=== PATIENT | female | born 1940 | race Caucasian/White ===

== ENCOUNTER 2020-07-17 08:25 | Outpatient (REF) | payer MEDICARE, SELFPAY ==
--- NOTE | ~2020-07-17 | XR_ITS ---
EXAMINATION: XR SHOULDER, RIGHT CLINICAL INFORMATION: Pain right shoulder. COMPARISON: None TECHNIQUE: AP external rotation, Grashey, scapular Y, and axillary views of the right shoulder. FINDINGS: There is mild hypertrophic changes at the right AC joint. No bony erosive changes. The glenohumeral joint space is maintained normal. Suspect a small loose body superior to the humeral head on the Y view. The soft tissues are normal. No visible acute fracture or dislocation seen. XR/XR shoulder RT min 2V IMPRESSION: Mild arthritic changes right AC joint. Suspect small loose body.
--- NOTE | ~2020-07-17 | US_ITS ---
EXAMINATION: US THYROID CLINICAL INFORMATION: Abnormal thyroid labs. COMPARISON: None TECHNIQUE: Linear transducer grayscale and color Doppler examination with attention to the region of the thyroid. FINDINGS: SIZE: Measurements of the thyroid lobes and nodules are given in sagittal, anteroposterior and transverse dimensions respectively. Right Thyroid Lobe: 4.4 x 1.3 x 1.5 cm, volume 4.5 mL. Parenchyma: The gland echotexture is homogeneous. Thyroid vascularity is normal. Left Thyroid Lobe: 3.6 x 1.1 x 1.1 cm, volume 2.3 mL. Parenchyma: The gland echotexture is homogeneous. Thyroid vascularity is normal. Isthmus: 0.4 cm in maximum AP dimension. Estimated total number of nodules greater than or equal to 1 cm: one. Torpedo Worker nodules are described as follows: 1. Location: Right lower pole. Size: 0.9 x 1.0 x 0.8 cm, volume 0.4 mL. Nodule characteristics: Composition: Solid (2). Echogenicity: Hyperechoic (1). Shape: Not taller than wide (0). Margins: Smooth (0). Echogenic Foci: None (0). ACR TI-RADS total points: 3 ACR TI-RADS category: 3 2. Location: Right lower pole. Size: 0.4 x 0.4 x 0.5 cm, volume 0.04 mL. Nodule characteristics: Composition: Solid (2). Echogenicity: Hyperechoic (1). Shape: Not taller than wide (0). Margins: Smooth (0). Echogenic Foci: None (0). ACR TI-RADS total points: 3 ACR TI-RADS category: 3 NODES: No lymphadenopathy is seen in the tissue surrounding the thyroid gland. US/US thyroid IMPRESSION: Two solid lesions of which only one lesions measures 1.0 cm and are not suspicious based on Ti-Rads category 3. Recommend continued follow-up ACR TI-RADS RECOMMENDATION REFERENCE: Ultrasound-guided fine-needle aspiration, followup ultrasound, no further follow up. * TR1 (0 point) and TR 2 (2 points): No FNA or follow up * TR3 (3 points): FNA if more than or equal to 2.5 cm in maximum dimension, followup ultrasound in 1, 3 and 5 years if 1.5 to 2.4 cm in maximum dimension. * TR4 (4-6 points): FNA if more than or equal to 1.5 cm in maximum dimension, followup ultrasound in 1, 2, 3 and 5 years if 1 to 1.4 cm in maximum dimension. * TR5 (more than or equal to 7 points): FNA if more than or equal to 1 cm in maximum dimension, followup ultrasound every year for 5 years if 0.5 to 0.9 cm in maximum dimension. * TR3, TR4 or TR5 nodules that are below the size threshold for follow up receive no follow up.
== END 2020-07-17 08:26 | disposition home or self-care (01) ==
LOC: HO.US 08:25
PROVIDERS: PCP Family Medicine; Visit Provider Family Medicine
DX: E07.89 Other specified disorders of thyroid (principal); R93.89 Abnormal findings on diagnostic imaging of other specified body structures
CPT/HCPCS: 73030; 76536

== ENCOUNTER 2020-07-26 08:34 | Outpatient (REF) | payer MEDICARE, SELFPAY ==
--- NOTE | ~2020-07-26 | MM_ITS ---
EXAMINATION: MM SCREENING DIGITAL BREAST TOMOSYNTHESIS, BILATERAL CLINICAL INFORMATION: Screening. Asymptomatic. The lifetime risk of breast cancer based on the Tyrer-Cuzick Model is 7.8%. COMPARISON: Mammography: April 28, 2019 and studies dating back to February 28, 2014 TECHNIQUE: Digital breast tomosynthesis is performed in both the craniocaudal and mediolateral oblique views along with computer-aided detection (CAD). Synthesized 2D images are generated from the tomosynthesis. FINDINGS: The breasts are heterogeneously dense, which may obscure small masses (ACR BI-RADS breast composition Category c). There are no significant masses, abnormal calcifications, or other abnormalities. MM/MM tomosynthesis screening BI IMPRESSION: There are no significant changes from prior study. ASSESSMENT: BI-RADS 1: Negative RECOMMENDATION: Routine annual mammography screening. This patient's information was entered into a reminder system with a target due date for their next mammogram.
== END 2020-07-26 08:35 | disposition home or self-care (01) ==
LOC: HO.MAMMO 08:34
PROVIDERS: Visit Provider Family Medicine
DX: Z12.31 Encounter for screening mammogram for malignant neoplasm of breast (principal)
CPT/HCPCS: 77063; 77067

== ENCOUNTER 2020-07-30 07:41 | Outpatient (REF) | payer MEDICARE, SELFPAY | END 2020-07-30 07:42 | disposition home or self-care (01) | LOC: HO.HOSX 07:41 | PROVIDERS: Visit Provider Orthopaedic Surgery | DX: M25.511 Pain in right shoulder (principal); I10 Essential (primary) hypertension | CPT/HCPCS: 99202 ==

== ENCOUNTER 2020-08-24 09:26 | Outpatient (REF) | payer MEDICARE, SELFPAY ==
--- NOTE | 2020-08-24 16:37 | MHC.AU.AHA ---
Adult Audiological Evaluation Date of Visit: 08/24/20 Tool Straightener Used: Bahamian- In Person Reason for Appointment: Audiological evaluation to monitor the status of Ms. Doyle's hearing loss. She has a known bilateral sensorineural hearing loss and uses hearing aids bilaterally. She feels that her hearing is gradually decreasing. She lost her hearing aids two weeks ago and an updated audiogram is needed in order to pursue new hearing aids. Previous Hearing Test Results: [facility] [place], 01/04/20- Moderately severe to severe sensorineural hearing loss, though responses were inconsistent and indicated a shift compared to previous tests. Dr. Jefferson, 03/17/19- Moderate sloping to severe sensorineural hearing loss. Medical History: Medical History: Dizziness or Unsteadiness Medical History: Has been experiencing vertigo since July 2019, believed to be BPPV. Taking Meclizine daily. Hearing Instrument History- Right Ear: Credit Correspondence Clerk: Company Cubed Model: [employer]OW [employer]0-M BTE - LOST Serial Number: [id number] Battery Size: 312 Repair Warranty: 12/08/2017 Loss and Damage Warranty: 12/08/2017 Dispensed By: [facility] Date of Fittin10/01/2015 Hearing Instrument History- Left Ear: Credit Correspondence Clerk: Adaptive Paymentsak Model: Referron V50-M BTE - LOST Serial Number: [id number] Battery Size: 312 Warranty: 12/08/2017 Loss and Damage Warranty: 12/08/2017 Dispensed By: [facility] Date of Fittin10/01/2015 Otoscopy: Right Ear: Unremarkable Left Ear: Unremarkable Tympanometry: Tympanometry performed due to: Patient reports sensation of aural fullness Right Ear: Normal Middle Ear System (Type A) Left Ear: Normal Middle Ear System (Type A) Hearing Evaluation: Transducer(s) Used: Insert Earphones, Bone Conduction Method: Conventional Audiometry Stimuli Used: Pure Tones Right Ear: Description of Hearing: Moderate sloping to severe sensorineural hearing loss from 250-8000 Hz. Left Ear: Description of Hearing: Moderate sloping to severe sensorineural hearing loss from 250-8000 Hz. Speech Recognition Threshold (SRT): Method Used: Recorded Lists Stimuli Used: Spondee Words Right Ear: 50 dBHL Left Ear: 50 dBHL Word Discrimination: Method: Recorded Lists Word Lists Used: Lista Bisil?bica (Bahamian) Right Ear: 92% at 80 dBHL Left Ear: 92% at 80 dBHL Comparison: Compared to most recent evaluation: Hearing is improved compared to test from 12/2019 and stable compared to test from 02/2019. Recommendations: Audiological re-evaluation in one year. Medical clearance from a physician is required before fitting. Hearing Aid Fitting will be scheduled when all materials arrive. Hearing aid(s) will be ordered after approval is received. Will submit a PA to patient's insurance. Diagnosis: Primary Diagnosis: H90.3 Bilateral Sensorineural Hearing Loss Services Performed: Comprehensive Audiological Evaluation (CPT 17762) Tympanometry (CPT 43676) Signature: Provider: Pia Hendricks, CCC-A
--- NOTE | 2020-08-24 16:38 | MHC.AU.HAS ---
Hearing Aid Evaluation Date of Visit: 08/24/20 [employer] Plans Intelligence Officer Used: Romanian- In Person Historical Information: Description of Hearing: Moderate sloping to severe sensorineural hearing loss bilaterally. Current personal amplification information, if applicable: Previously had Bolero V50-M BTE aids, lost two weeks ago. Summary: Patient lost her hearing aids and they are no longer under warranty. Due for updated aids in September 2020. Right now we are just shy of the 5 year musa, but will request as patient has difficulties communicating without the hearing aids. Hearing Aid Prescription: Based on the individual?s shared listening needs, communication environments, dexterity, desire for connectivity, and personal preferences, the following prescription for amplification has been made: Right ear: Hardware Trainer: [employer] Model: Audeo P70-R Battery Size: Rechargeable Color: P1- Sand beige Associate Professor Of Biblical Studies: Size 1 M Type of Dome: Power Left ear: Hardware Trainer: Phonak Model: Audeo P70-R Battery Size: Rechargeable Color: P1- Sand beige Associate Professor Of Biblical Studies: 1 M Type of Dome: Power Action Taken/Action Needed: Prior authorization to be requested. Medical Clearance to be requested from PCP/ENT. Hearing Fitting to be scheduled when materials arrive. Aids will be ordered on approval is received. Signature: Provider: Pia Hendricks, CLAUDIA-A
--- NOTE | 2020-08-24 16:40 | MHC.AU.MED ---
Medical Clearance for Hearing Instrumentation Date: 08/24/20 Patient Name: Afsaneh Doyle Date of : 1940 Referring Provider: Lubna Fong MD We have seen your patient on 08/24/20 and have determined that they are a candidate for amplification (See accompanying report). Specifically, they would benefit from: Hearing aid use in both ears There is a statute that addresses Medical Evaluation Requirements prior to fitting a patient with a hearing aid. According to [place] statute [facility] CMR:6.03(1), (a) General. Except as provided in 265 CMR 6.03(1)(b), a soda dispenser shall not sell a hearing aid unless the prospective user has presented to the soda dispenser a written statement signed by a licensed physician that states that the patient's hearing loss has been medically evaluated and the patient may be considered a candidate for a hearing aid. The medical evaluation must have taken place within the preceding six months. Please note: Due to the [place] Statute referenced above, we cannot accept a signature other than that of a licensed physician. PERSONAL BANKING ASSISTANT and PA signatures cannot be accepted. I am in agreement with the above recommendation. There is no medical contraindication for hearing instrumentation. Physician Signature Date Physician Name (Printed)
== END 2020-08-24 09:27 | disposition home or self-care (01) ==
LOC: HO.SH 09:26
PROVIDERS: Visit Provider Family Medicine
DX: Z46.1 Encounter for fitting and adjustment of hearing aid (principal); H90.3 Sensorineural hearing loss, bilateral
CPT/HCPCS: 92557; 92567; 92591

== ENCOUNTER 2020-09-13 09:27 | Outpatient (REF) | payer MEDICARE, SELFPAY | END 2020-09-13 09:28 | disposition home or self-care (01) | LOC: HO.HAP 09:27 | PROVIDERS: Visit Provider Family Medicine | DX: Z46.1 Encounter for fitting and adjustment of hearing aid (principal); H90.3 Sensorineural hearing loss, bilateral | CPT/HCPCS: V5011; V5020; V5160; V5261 ==

== ENCOUNTER 2020-10-03 09:23 | Outpatient (REF) | payer MEDICARE, SELFPAY | END 2020-10-03 09:24 | disposition home or self-care (01) | LOC: HO.HAP 09:23 | PROVIDERS: Visit Provider Family Medicine | DX: Z13.89 Encounter for screening for other disorder (principal) ==

== ENCOUNTER 2021-01-09 09:29 | Outpatient (REF) | payer MEDICARE, SELFPAY ==
[2021-01-10 09:25] LABS: Lyme Abs Screen <0.90 index
== END 2021-01-09 09:30 | disposition home or self-care (01) ==
LOC: HO.LAB 09:29
PROVIDERS: PCP Family Medicine; Visit Provider Family Medicine
DX: Z01.84 Encounter for antibody response examination (principal); R21 Rash and other nonspecific skin eruption
CPT/HCPCS: 36415; 86617; 86618

== ENCOUNTER 2021-03-11 10:01 | Inpatient (IN) | payer MEDICARE, SELFPAY ==
[2021-03-11] VITALS (8 sets, daily range): BP systolic 114–159; BP diastolic 61–97; PULSE 72–88; RESP 16–18; TEMP 36.6–37.2; O2SAT 92–100; BMI 27.7
--- NOTE | ~2021-03-11 | CT_ITS ---
EXAMINATION: CT ABDOMEN AND PELVIS WITH CONTRAST CLINICAL INFORMATION: Left lower quadrant pain, vomiting. COMPARISON: CT abdomen and pelvis with IV contrast 07/22/2012. TECHNIQUE: Multidetector volumetric images were obtained from the superior aspect of the liver through the pubic symphysis following administration 85 mL of Omnipaque 350 intravenous contrast. Sagittal and coronal reformatted images were obtained on the technologist's workstation. Oral contrast: No This CT examination was performed using dose optimization techniques as appropriate, variously including the following: *Automated exposure control *Adjustment of mA and/or kV according to patient size (this includes techniques or standardized protocols for targeted exams where dose is matched to indication/reason for exam; i.e. extremities or head) *Use of iterative reconstruction technique DLP: 567 mGy-cm FINDINGS: LUNG BASES: Mild accentuation interstitial markings. No honeycombing, airspace consolidation, or effusion. LIVER, GALLBLADDER, AND BILIARY TREE: Liver is normal in size and smooth in contour. There is tiny subcapsular cyst inferior medial right lobe adjacent to gallbladder, in retrospect similar to prior CT 2013. There is decreased hepatic parenchymal attenuation consistent with hepatic steatosis. No intrahepatic ductal dilatation. The gallbladder is unremarkable with no evidence of radiopaque gallstones, gallbladder wall thickening, or obvious pericholecystic inflammatory changes. PANCREAS: Unremarkable. SPLEEN: Unremarkable. ADRENAL GLANDS: Unremarkable. KIDNEYS AND URETERS: The kidneys are normal in size, shape, and attenuation. No hydronephrosis, hydroureter, or calculi seen. No perinephric stranding. BLADDER: Unremarkable. GASTROINTESTINAL TRACT: There is stool throughout the colon from the cecum to the mid sigmoid. There is no wall thickening or pneumatosis or free air or proximal obstruction. Scattered diverticula in the sigmoid are seen without diverticulitis. The appendix is normal. Small bowel is unremarkable. There is no ascites or fluid collection. ABDOMINAL WALL: No significant hernia is appreciated. LYMPH NODES: No lymphadenopathy. VASCULAR: Unremarkable. PELVIC VISCERA: There is a chronic cyst right adnexa of water attenuation (1 HU) measuring 3.8 x 3.4 x 3.3 cm. There is a similar sized cyst on prior CT 2013 measuring 3.6 x 3.3 x 2.7 cm. No prior characterization with ultrasound or MR. There is no pelvic ascites. OSSEOUS STRUCTURES: Unremarkable. CT/CT abdomen pelvis w con IMPRESSION: 1. Large amount of stool from cecum to mid sigmoid. No wall thickening or paracolic inflammatory changes. Normal appendix. No ascites or fluid collection. 2. Probable chronic cyst right adnexa 3.8 cm. Recommend follow-up pelvic ultrasound in 6 months.
--- NOTE | 2021-03-11 10:58 | ED.ABDPAIN ---
HPI - Abdominal Pain General Chief Complaint: Abdominal Pain Stated Complaint: abd pain Time Seen by Provider: 03/11/21 10:58 Source: patient and EMS Mode of arrival: EMS Limitations: no limitations History of Present Illness HPI narrative: 80-year-old female, no known medical history presents to the emergency department with complaints of left lower quadrant pain, and vomiting since last night. Patient states that the pain came on all of a sudden, and progressively worsened over night. She reports episodes of vomiting every 30 minutes, she states she is unable to keep down food, or water. She rates her pain a 10/10, intermittent in nature, described as stabbing pain, free of radiation. She states this started after she drank milk. She notes her bowel movements have been smaller than usual over the past three days. She denies fevers, chills, chest pain, shortness of breath, weakness, recent sick contacts, nausea, vomiting. She has had a , but no other abdominal surgeries. MD elicited complaint: abdominal pain Pertinent past history: none Onset (ago): day(s) (1) Pain Consistency: intermittent Location: LLQ Severity: severe Pain scale (0-10): 10 Quality: stabbing Radiation: none Migration to: no migration Exacerbating factors: nothing Relieving factors: nothing Associated symptoms: nausea Related Data Home Medications Medication Instructions Recorded Confirmed aspirin 81 mg tablet,delayed 1 tab PO DAILY 03/11/21 03/11/21 release carvedilol 25 mg tablet 1 tab PO BID 03/11/21 03/11/21 cetirizine 10 mg tablet 1 tab PO DAILY 03/11/21 03/11/21 cholecalciferol (vitamin D3) 50 1 tab PO DAILY 03/11/21 03/11/21 mcg (2,000 unit) tablet fluticasone propionate 50 1 spray INTRANASAL DAILY 03/11/21 03/11/21 mcg/actuation nasal spray,suspension lisinopril 5 mg tablet 1 tab PO DAILY 03/11/21 03/11/21 meclizine 12.5 mg tablet 1 tab PO DAILY 03/11/21 03/11/21 rosuvastatin 40 mg tablet (Crestor) 1 tab PO BEDTIME 03/11/21 03/11/21 sumatriptan succinate 100 mg tablet 0.25 - 0.5 tab PO DAILY PRN 03/11/21 03/11/21 Allergies Allergy/AdvReac Type Severity Reaction Status Date / Time No Known Allergies Allergy Unverified 02/02/20 17:40 [No Known Allergies*] Review of Systems Review of Systems Constitutional : No Weight loss, No Fever, No Chills, No Fatigue, No Malaise Cardiovascular : No Chest Pain, No SOB, No Dyspnea on Exertion, No Orthopnea, No Edema, No Palpitations Respiratory : No Cough, No Sputum, No Wheezing Gastrointestinal : + Nausea, + Vomiting, No Diarrhea, No Constipation, + abdominal Pain, No Hematochezia, No Melena Genitourinary : No Dysuria, No Urinary Frequency, No Hematuria, Musculoskeletal : No joint pain, No Myalgias, No Joint Swelling Skin : No Skin Lesions, No rash Neuro : No Weakness, No Numbness, No Dizziness, No Headache All other systems reviewed and are negative Physical Exam Vital Signs: Vital Signs: Last Vital Signs Temp 98 F 03/11/21 10:07 Pulse 72 03/11/21 12:57 Resp 16 03/11/21 12:57 BP 159/97 H 03/11/21 12:57 Pulse Ox 97 03/11/21 12:57 Body Mass Index 27.7 Appearance: Alert. Oriented X3. No acute distress. Eyes: Pupils equal, round and reactive to light. ENT: Pharynx normal. Neck: Normal inspection. Neck supple. CVS: Normal heart rate and rhythm. Pulses normal. Respiratory: No respiratory distress. Breath sounds normal. Abdomen: Soft and + tenderness to LLQ Skin: Skin warm and dry. Normal skin color. Normal skin turgor. Extremities: No lower extremity edema. No calf ttp Neuro: Oriented X 3. No motor deficit. No sensory deficit. Course Course Course Narrative: EKG has been reviewed, it shows an old left bundle branch block, new inverted T-waves in lateral t waves. For this reason the troponin has been added. troponin elevaated. PO aspirin ordered will discuss with Cardiology Reevaluation(s) Reevaluation #1: Spoke to Dr. Oh who recommends an echo at this time. He also states to first see results of CT scan to determine cause of abd pain, prior to starting heparin on this patient. Re-evaluated patient again, who expresses abdominal pain has improved, and she reports little to no pain at this time. Will continue to monitor. Time: 13:39 Reevaluation #2: Dr. Oh evaluated the patient at the bedside. 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 Agrees with plan to heparinize the patient. Patient will be monitored, with a possible transfer to [facility] tomorrow after abdominal pain is under control. Time: 16:41 Reevaluation #3: Patient appears anxious at this time, will be given 1 mg of Ativan IV. Contacting hospitalist for admission at this time. Time: 16:41 MDM - Abdominal Pain MDM Narrative Medical decision making narrative: 80-year-old female presents to the emergency department with complaints of left lower quadrant pain and nausea and vomiting since last night. Upon physical examination there is tenderness to palpation in the left lower quadrant, concerning for possible diverticulitis. Plan at this time is to obtain basic labs, lactate, liver, magnesium, lipase, UA, cultures, CT of the abdomen, EKG. She will be given morphine, fluids and Zofran. Lab Data Result diagrams: 03/11/21 11:42 03/11/21 11:42 Labs: Lab Results 03/11/21 03/11/21 03/11/21 Range/Units 11:42 11:42 11:42 WBC 12.8 H (4.8-10.8) X10*3/uL RBC 4.71 (4.20-5.50) X10*6/uL Hgb 15.0 (12.0-16.0) g/dl Hct 43.7 (37-47) % MCV 92.8 (80-98) fL MCH 31.8 (27.0-33.0) pg MCHC 34.3 (31.0-35.0) g/dl RDW 12.8 (11.0-16.0) % Plt Count 252 (160-400) X10*3/uL MPV 10.7 (9.4-12.3) fL Immature Gran % (Auto) 0.4 (0.0-0.4) % Neut % (Auto) 81.9 H (45-73) % Lymph % (Auto) 11.6 L (20-40) % [place] % (Auto) 5.9 (2-11) % Eos % (Auto) 0.0 (0-4) % Baso % (Auto) 0.2 (0-2) % Lymph # (Auto) 1.5 (1.2-4.9) X10*3/uL [place] # (Auto) 0.8 (0.1-1.2) X10*3/uL Eos # (Auto) 0.0 (0.0-0.4) X10*3/uL Baso # (Auto) 0.0 (0.0-0.2) X10*3/uL Abs Immat Gran (auto) 0.05 H (0.00-0.03) X10*3/uL Absolute Neuts (auto) 10.5 H (2.0-8.3) X10*3/uL Absolute Nucleated RBC 0.000 (0.0-0.012) X10*3/uL Nucleated RBC % (auto) 0.0 (0.0-0.2) /100WBC PT (9.9-13.0) SEC INR (0.9-1.1) APTT (24.1-38.0) SEC Sodium 142 (135-145) mmol/L Potassium 4.5 (3.3-5.1) mmol/L Chloride 106 (96-108) mmol/L Carbon Dioxide 27 (22-29) mmol/L Anion Gap 14 (12-20) BUN 25 H (9-16) mg/dL Creatinine 0.81 (0.5-1.4) mg/dL Estim Creat Clear Calc 46.3 Estimated GFR > 60 Random Glucose 166 H (60-115) mg/dL Lactic Acid 2.0 (0.5-2.0) mmol/L Calcium 9.5 (8.4-10.2) mg/dL Magnesium 1.9 (1.6-2.6) mg/dL Total Bilirubin 0.5 (0.0-1.0) mg/dL Direct Bilirubin 0.2 (0.0-0.5) mg/dL AST 18 (5-31) U/L ALT 20 (0-31) U/L Alkaline Phosphatase 88 (39-117) U/L Troponin I High Sens (<3.5-17.0) ng/L Total Protein 6.8 (6.5-8.0) g/dL Albumin 3.8 (3.5-5.0) g/dL Lipase 4 L (8-78) U/L Urine Color Urine Appearance Urine pH (5.0-8.0) Ur Specific [place] (1.005-1.025) Urine Protein (NEG-TRACE) MG/DL Urine Glucose (UA) (NEG) MG/DL Urine Ketones (NEG) MG/DL Urine Blood (NEG) Urine Nitrite (NEG) Ur Leukocyte Esterase (NEG) COVID-19 (ARABELLA) (Negative) COVID-19 Clin Com 03/11/21 03/11/21 03/11/21 Range/Units 11:42 13:46 13:46 WBC (4.8-10.8) X10*3/uL RBC (4.20-5.50) X10*6/uL Hgb (12.0-16.0) g/dl Hct (37-47) % MCV (80-98) fL MCH (27.0-33.0) pg MCHC (31.0-35.0) g/dl RDW (11.0-16.0) % Plt Count (160-400) X10*3/uL MPV (9.4-12.3) fL Immature Gran % (Auto) (0.0-0.4) % Neut % (Auto) (45-73) % Lymph % (Auto) (20-40) % [place] % (Auto) (2-11) % Eos % (Auto) (0-4) % Baso % (Auto) (0-2) % Lymph # (Auto) (1.2-4.9) X10*3/uL [place] # (Auto) (0.1-1.2) X10*3/uL Eos # (Auto) (0.0-0.4) X10*3/uL Baso # (Auto) (0.0-0.2) X10*3/uL Abs Immat Gran (auto) (0.00-0.03) X10*3/uL Absolute Neuts (auto) (2.0-8.3) X10*3/uL Absolute Nucleated RBC (0.0-0.012) X10*3/uL Nucleated RBC % (auto) (0.0-0.2) /100WBC PT 11.4 (9.9-13.0) SEC INR 1.0 (0.9-1.1) APTT 33.0 (24.1-38.0) SEC Sodium (135-145) mmol/L Potassium (3.3-5.1) mmol/L Chloride (96-108) mmol/L Carbon Dioxide (22-29) mmol/L Anion Gap (12-20) BUN (9-16) mg/dL Creatinine (0.5-1.4) mg/dL Estim Creat Clear Calc Estimated GFR Random Glucose (60-115) mg/dL Lactic Acid (0.5-2.0) mmol/L Calcium (8.4-10.2) mg/dL Magnesium (1.6-2.6) mg/dL Total Bilirubin (0.0-1.0) mg/dL Direct Bilirubin (0.0-0.5) mg/dL AST (5-31) U/L ALT (0-31) U/L Alkaline Phosphatase (39-117) U/L Troponin I High Sens 1341.7 H* (<3.5-17.0) ng/L Total Protein (6.5-8.0) g/dL Albumin (3.5-5.0) g/dL Lipase (8-78) U/L Urine Color Urine Appearance Urine pH (5.0-8.0) Ur Specific [place] (1.005-1.025) Urine Protein (NEG-TRACE) MG/DL Urine Glucose (UA) (NEG) MG/DL Urine Ketones (NEG) MG/DL Urine Blood (NEG) Urine Nitrite (NEG) Ur Leukocyte Esterase (NEG) COVID-19 (ARABELLA) Negative (Negative) COVID-19 Clin Com See Note 03/11/21 03/11/21 Range/Units 13:46 15:27 WBC (4.8-10.8) X10*3/uL RBC (4.20-5.50) X10*6/uL Hgb (12.0-16.0) g/dl Hct (37-47) % MCV (80-98) fL MCH (27.0-33.0) pg MCHC (31.0-35.0) g/dl RDW (11.0-16.0) % Plt Count (160-400) X10*3/uL MPV (9.4-12.3) fL Immature Gran % (Auto) (0.0-0.4) % Neut % (Auto) (45-73) % Lymph % (Auto) (20-40) % [place] % (Auto) (2-11) % Eos % (Auto) (0-4) % Baso % (Auto) (0-2) % Lymph # (Auto) (1.2-4.9) X10*3/uL [place] # (Auto) (0.1-1.2) X10*3/uL Eos # (Auto) (0.0-0.4) X10*3/uL Baso # (Auto) (0.0-0.2) X10*3/uL Abs Immat Gran (auto) (0.00-0.03) X10*3/uL Absolute Neuts (auto) (2.0-8.3) X10*3/uL Absolute Nucleated RBC (0.0-0.012) X10*3/uL Nucleated RBC % (auto) (0.0-0.2) /100WBC PT (9.9-13.0) SEC INR (0.9-1.1) APTT (24.1-38.0) SEC Sodium (135-145) mmol/L Potassium (3.3-5.1) mmol/L Chloride (96-108) mmol/L Carbon Dioxide (22-29) mmol/L Anion Gap (12-20) BUN (9-16) mg/dL Creatinine (0.5-1.4) mg/dL Estim Creat Clear Calc Estimated GFR Random Glucose (60-115) mg/dL Lactic Acid (0.5-2.0) mmol/L Calcium (8.4-10.2) mg/dL Magnesium (1.6-2.6) mg/dL Total Bilirubin (0.0-1.0) mg/dL Direct Bilirubin (0.0-0.5) mg/dL AST (5-31) U/L ALT (0-31) U/L Alkaline Phosphatase (39-117) U/L Troponin I High Sens 1399.4 H* (<3.5-17.0) ng/L Total Protein (6.5-8.0) g/dL Albumin (3.5-5.0) g/dL Lipase (8-78) U/L Urine Color YELLOW Urine Appearance HAZY Urine pH 6.0 (5.0-8.0) Ur Specific [place] >= 1.030 H (1.005-1.025) Urine Protein TRACE (NEG-TRACE) MG/DL Urine Glucose (UA) NEG (NEG) MG/DL Urine Ketones 5 (NEG) MG/DL Urine Blood NEG (NEG) Urine Nitrite NEG (NEG) Ur Leukocyte Esterase NEG (NEG) COVID-19 (ARABELLA) (Negative) COVID-19 Clin Com ECG Data Attestation: I personally reviewed and interpreted this ECG as follows: ECG interpretation date: 03/11/21 ECG interpretation time: 11:35 Prior ECG tracings: available for review Interpretation: Rate:76 Rhythm: NSR [place]: normal Normal P waves. Normal [place]. Normal QRS complex. ST T wave : No ST elevations, new T-wave inversion, and V3. No acute ischemia. qTC: Normal. prior studies: Bew left bundle-branch block, and T-wave inversions when compared to EKG from 05/10/2018. The study has been interpreted contemporaneously by me. . Critical Care Time Critical Care Time Critical Care Time: Yes Total Critical Care Time: 60 Attestation: IV morphine for pain, repeat cardiac workup, heparin gtt, medical consult, review of records I attest to this time spent taking care of the patient Discharge Plan Discharge Clinical Impression: Elevated troponin, T wave inversion in EKG, Non-ST elevation HI (NSTEMI) Abdominal pain Qualifiers: Abdominal location: left lower quadrant Qualified Code(s): R10.32 - Left lower quadrant pain Constipation Qualifiers: Constipation type: unspecified constipation type Qualified Code(s): K59.00 - Constipation, unspecified Patient Disposition: Admitted As Inpatient [facility] Past Medical History Attestation statement: The following information was validated with the patient. Source: old records reviewed and nursing notes reviewed Medical History Hypertension Social History Social History Alcohol intake: never Patient Tobacco Use Status: Never used Tobacco Use of substances other than those prescribed or required for medical reasons: No Advance Directives: No Advance Directives Information Provided: No
--- NOTE | 2021-03-11 10:59 | ECG_ITS ---
Test Reason : ABDOMINAL PAIN Blood Pressure : / mmHG Vent. Rate : 076 BPM Atrial Rate : 076 BPM P-R Int : 154 ms QRS Dur : 124 ms QT Int : 468 ms P-R-T Axes : 065 022 172 degrees QTc Int : 526 ms Normal sinus rhythm Left bundle branch block T-wave inversion in Anterolateral leads Abnormal ECG When compared with ECG of 02-SEP-2017 12:35, T-wave inversion in Anterolateral leads is new Clinical Correlation Advised Referred By: Marnie Lopez Electronically Signed By:KRISTA BAHENA MD
[2021-03-11 12:16] LABS: MANUAL DIFF FLAG NO
[2021-03-11 12:21] LABS: Basophils Percent Auto 0.2 % (0-2); Hematocrit 43.7 % (37-47); Imm Gran Abs Auto 0.05 X10*3/uL (0.00-0.03); Imm Gran Pct Auto 0.4 % (0.0-0.4); Lymphocytes Absolute Auto 1.5 X10*3/uL (1.2-4.9); Lymphocytes Percent Auto 11.6 % (20-40); Mean Corpuscular HGB Conc 34.3 g/dl (31.0-35.0); Mean Corpuscular Hemoglobin 31.8 pg (27.0-33.0); Mean Corpuscular Volume 92.8 fL (80-98); Mean Platelet Volume 10.7 fL (9.4-12.3); Monocytes Absolute Auto 0.8 X10*3/uL (0.1-1.2); Monocytes Percent Auto 5.9 % (2-11); Neutrophils Absolute Auto 10.5 X10*3/uL (2.0-8.3); Neutrophils Percent Auto 81.9 % (45-73); Platelet Count 252 X10*3/uL (160-400); Red Blood Count 4.71 X10*6/uL (4.20-5.50); Red Cell Distribution Width 12.8 % (11.0-16.0); White Blood Count 12.8 X10*3/uL (4.8-10.8)
[2021-03-11 12:41] LABS: Alanine Aminotransferase 20 U/L (0-31); Albumin Level 3.8 g/dL (3.5-5.0); Alkaline Phosphatase 88 U/L (39-117); Anion Gap 14 (12-20); Aspartate Amino Transferase 18 U/L (5-31); Bilirubin Direct 0.2 mg/dL (0.0-0.5); Bilirubin Total 0.5 mg/dL (0.0-1.0); Blood Urea Nitrogen 25 mg/dL (9-16); Calcium 9.5 mg/dL (8.4-10.2); Carbon Dioxide 27 mmol/L (22-29); Chloride 106 mmol/L (96-108); Creatinine Clr Calc Pharmacy 46.3; Estimated Glomerular Filt Rate > 60; Glucose Random 166 mg/dL (60-115); Lipase 4 U/L (8-78); Magnesium 1.9 mg/dL (1.6-2.6); Potassium 4.5 mmol/L (3.3-5.1); Sodium 142 mmol/L (135-145); Total Protein 6.8 g/dL (6.5-8.0)
[2021-03-11] MEDS: ondansetron HCL 4 MG/2 ML VIAL IVPUSH (12:56)
[2021-03-11] MEDS: Morphine Sulfate 4 MG/ML CARTRIDGE 2 MG IVPUSH (12:56)
[2021-03-11] MEDS: Aspirin 81 MG TAB.CHEW 162 MG PO (13:26)
[2021-03-11] MEDS: 0.9 % Sodium Chloride 500 ML IV (13:26)
--- NOTE | 2021-03-11 13:39 | CA_ITS ---
Transthoracic Echocardiogram Patient (Last, First, Middle): Afsaneh Doyle, Gender: Female Date of : 1940 Age: 80 Procedure Date: 03/11/2021 Procedure Type: Transthoracic Echocardiogram Location: ER Height: 152.4 cm Weight: 64.41 kg BSA: 1.61 m2 Heart Rate: bpm BP: 127 / 65 mmHg Acetone Button Paster: Referring MD: Marnie Lopez DO Symptoms: elevated troponin, EKG changes. Study Quality: Fair ECG Rhythm: Sinus Conclusions: - The left ventricular systolic function is moderately decreased. The visually estimated ejection fraction is between 30-35%. - The entire apex, the mid anterior, mid inferior, mid anterolateral, mid inferoseptal, mid anteroseptal, and mid inferolateral segments are akinetic. - RWMA with differential of multivessel disease vs Takotsubo CMP. Findings Procedure Information Contrast agent, definity, is being given per protocol without apparent complications. Left Ventricle Normal left ventricular cavity size. There is normal left ventricular wall thickness. The left ventricular systolic function is moderately decreased. The visually estimated ejection fraction is between 30-35%. There is evidence of regional wall motion abnormalities. Abnormal diastolic function is noted. Spectral Doppler is indicative of an impaired relaxation filling pattern. E/E prime ratio is between 8 and 15 consistent with indeterminate filling pressures. Wall Motion Rest Echo Findings The entire apex, the mid anterior, mid inferior, mid anterolateral, mid inferoseptal, mid anteroseptal, and mid inferolateral segments are akinetic. Right Ventricle Normal right ventricular cavity size and systolic function. Atria Both atria are normal in size. Aortic Valve There is a normal trileaflet aortic valve. There is mild calcification of the aortic valve. There is no aortic valve stenosis. There is no aortic valve regurgitation. Mitral Valve The mitral valve appears normal. There is trace mitral valve regurgitation. There is no mitral valve stenosis. Pulmonic Valve The pulmonic valve is likely normal. Tricuspid Valve Normal tricuspid valve structure. There is trace tricuspid valve regurgitation. Normal right atrial pressure. There is no evidence of pulmonary hypertension. Great Vessels All visible segments of the aorta are normal in size. The pulmonary artery was not well visualized. Venous The inferior vena cava is normal in size and collapses greater than 50% with inspiration. Pericardium/Pleural There is no evidence of pericardial effusion. Prior Study Comparison No prior study available for comparison. Measurements 2D Linear Measurements IVSd: 1.08 0.6-0.9/0.6-1.0 cm LVIDd: 4.12 3.9-5.3/4.2-5.9 cm LVIDd Index: 2.56 2.4-3.2/2.2-3.1 cm/m2 LVIDs: 3.33 2.0-3.6 cm LVPWd: 1.17 0.7-1.1 cm Ao Root: 2.30 2.1-3.5 cm LA Diam: 3.40 2.7-3.8/3.0-4.0 cm LAIDs Index: 2.11 1.5-2.3 cm/m2 LV Mass: 196.08 67-162/88-224 g LV Mass Index: 121.79 43-95/49-115 g/m2 LVOT Diam: 1.90 3.0+(-)1.3 cm 2D Systolic Function EF 4C: 34.80 >55% EF 2C: 28.90 >55% EF BiP: 34.00 >55% Mitral Valve MV Pk E: 0.51 MV PK A: 0.94 MV Decel Time: 184.00 E/A: 0.50 E'Lateral: 3.05 E'Medial: 4.03 E/E' Med: 12.70 E/E' Lat: 16.70 PHT: 54.00 MVA PHT: 4.07 Decel Nuckolls: 2.77 Aortic Valve AoV Pk Sanjay: 1.22 AoV Mn Sanjay: 0.88 AoV VTI: 0.28 AoV Pk Grad: 6.00 Aov Mn Grad: 4.00 ISAMAR Cont.VTI: 1.71 LVOT LVOT Pk Sanjay: 0.76 LVOT Mn Sanjay: 0.52 LVOT VTI: 0.17 LVOT Pk Grad: 2.00 LVOT Mn Grad: 1.00 LVOT Diam: 1.90 LVOT Area: 2.84 Diastolic Function MV Pk E: 0.51 MV Pk A: 0.94 E/A: 0.50 E'Medial: 4.03 E/E' Med: 12.70 E' Laterial: 3.05 E/E' Lat: 16.70 Tricuspid Valve TR Pk Sanjay: 2.09 TR Pk Grad: 17.00 RVSP: 22.00 Great Vessels Aorta Ao Root-2D: 2.30 2.0-3.7 cm Pulmonary Valve PV Pk Sanjay: 0.87 Peak PV Grad: 3.00 Updated in Other Vendor System with Status of Final Julio Oh MD electronically signed on 03/11/2021 5:04:39 PM with status of Final
[2021-03-11] MEDS: iohexoL 350 MG/ML 100 ML INFUS..BTL IV (13:59)
[2021-03-11 14:02] LABS: Prothrombin Time 11.4 SEC (9.9-13.0)
[2021-03-11 14:08] LABS: Appearance Urine HAZY; Color Urine YELLOW; Glucose Urine UA NEG (NEG); Leukocyte Esterase Urine NEG (NEG); Nitrite Urine NEG (NEG); Specific Gravity - Urine >= 1.030 (1.005-1.025); Urine Blood NEG (NEG); Urine Ketones 5 MG/DL (NEG); Urine Protein TRACE MG/DL (NEG-TRACE)
[2021-03-11 14:10] LABS: COVID-19 Test Negative (Negative)
--- NOTE | 2021-03-11 14:34 | PHA.MEDREC ---
Pharmacy Consult ? Medication Reconciliation Pharmacy has completed the medication reconciliation. Nely KwanD
[2021-03-11 16:03] LABS: Troponin-I High Sensitivity 1399.4 ng/L (<3.5-17.0)
[2021-03-11] MEDS: Heparin Sodium,Porcine 5,000 UNIT/ML VIAL 3900 UNIT IVPUSH (16:33)
[2021-03-11] MEDS: Heparin Sodium,Porcine/1/2NS 25,000 UNIT/250 ML IV.SOLN 7.73 UNIT IVCONT (16:36)
[2021-03-11] MEDS: LORazepam 2 MG/ML VIAL 1 MG IVPUSH (16:43)
--- NOTE | 2021-03-11 16:48 | P.CONCA_ITS ---
History of Present Illness History of Present Illness Date of Service: 03/11/21 Requesting physician: Marnie Lopez Chief complaint: abd pain, ECG changes and + troponin Narrative: 80-year-old female who has history of known coronary disease with previous coronary artery stent in 2013 was presenting for left lower quadrant abdominal pain and vomiting. She said she started having left lower quadrant abdominal pain yesterday with vomiting. She thought this was due to gallbladder inflammation. With these symptoms she came to the emergency department. She denied any chest pain or shortness of breath. She had an EKG performed which showed sinus rhythm with left bundle-branch block and anterolateral T-wave inversions. These were new compared to her previous EKG. She denied any chest pain discomfort or shortness of breath. Showed a troponin I level of 1341 and 1399. Lipase was 4. At the time of interview she was complaining of left lower abdominal pain and denied any chest discomfort or shortness of breath. PMFSH Past Medical History Medical History Hypertension Social History Social History Alcohol intake: never Patient Tobacco Use Status: Never used Tobacco Use of substances other than those prescribed or required for medical reasons: No Advance Directives: No Advance Directives Information Provided: No Meds Allergies Allergy/AdvReac Type Severity Reaction Status Date / Time No Known Allergies Allergy Unverified 02/02/20 17:40 [No Known Allergies*] Active Medications: Current Medications Heparin Sodium (Porcine) (Heparin Sodium,Porcine 5,000 Unit/Ml Vial) 2,600 unit 40 unit/kg (2600 unit) IVPUSH PROTOCOL BOLUS PRN; Protocol PRN Reason: 40 unit/kg - Heparin Protocol Heparin Sodium (Porcine) (Heparin Sodium,Porcine 5,000 Unit/Ml Vial) 5,200 unit 80 unit/kg (5200 unit) IVPUSH PROTOCOL BOLUS PRN; Protocol PRN Reason: 80 unit/kg - Heparin Protocol Heparin Sodium/Sodium Chloride () 25,000 unit in 250 mls @ 0 mls/hr IVCONT .Q0M OZIEL; Protocol Last Admin: 03/11/21 16:36 Dose: 12 units/kg/hr, 7.73 mls/hr Documented by: Pharmacy Consult (Consult Rx Perform Med Rec) 1 each MISCELLANE ONCE PRN PRN Reason: Consult order Home Medications Medication Instructions Recorded Confirmed Last Taken Type aspirin 81 mg tablet,delayed 1 tab PO DAILY 03/11/21 03/11/21 03/10/21 History release carvedilol 25 mg tablet 1 tab PO BID 03/11/21 03/11/21 03/10/21 History cetirizine 10 mg tablet 1 tab PO DAILY 03/11/21 03/11/21 03/10/21 History cholecalciferol (vitamin D3) 50 1 tab PO DAILY 03/11/21 03/11/21 03/10/21 History mcg (2,000 unit) tablet fluticasone propionate 50 1 spray INTRANASAL DAILY 03/11/21 03/11/21 03/10/21 History mcg/actuation nasal spray,suspension lisinopril 5 mg tablet 1 tab PO DAILY 03/11/21 03/11/21 03/10/21 History meclizine 12.5 mg tablet 1 tab PO DAILY 03/11/21 03/11/21 03/10/21 History rosuvastatin 40 mg tablet (Crestor) 1 tab PO BEDTIME 03/11/21 03/11/21 03/10/21 History sumatriptan succinate 100 mg tablet 0.25 - 0.5 tab PO DAILY PRN 03/11/21 03/11/21 Unknown History Physical Exam Vital Signs: Vital Signs: Last Vital Signs Temp 98 F 03/11/21 10:07 Pulse 81 03/11/21 16:40 Resp 18 03/11/21 16:40 BP 138/71 03/11/21 16:40 Pulse Ox 97 03/11/21 16:40 Body Mass Index 27.7 GENERAL APPEARANCE: Distress due to abdominal pain NECK: no carotid bruit, no jugular venous distention. SKIN: no suspicious lesions, warm and dry. HEART: no murmurs, regular rate and rhythm. LUNGS: clear to auscultation bilaterally. ABDOMEN: soft. EXTREMITIES: no edema. PERIPHERAL PULSES: equal. NEUROLOGIC: No gross deficits, AAO X 3 Results Labs and Meds Result diagrams: 03/11/21 11:42 03/11/21 11:42 Lab results: Laboratory Results - last 24 hr 03/11/21 03/11/21 03/11/21 11:42 11:42 11:42 WBC 12.8 H RBC 4.71 Hgb 15.0 Hct 43.7 MCV 92.8 MCH 31.8 MCHC 34.3 RDW 12.8 Plt Count 252 MPV 10.7 Immature Gran % (Auto) 0.4 Neut % (Auto) 81.9 H Lymph % (Auto) 11.6 L [place] % (Auto) 5.9 Eos % (Auto) 0.0 Baso % (Auto) 0.2 Lymph # (Auto) 1.5 [place] # (Auto) 0.8 Eos # (Auto) 0.0 Baso # (Auto) 0.0 Abs Immat Gran (auto) 0.05 H Absolute Neuts (auto) 10.5 H Absolute Nucleated RBC 0.000 Nucleated RBC % (auto) 0.0 PT INR APTT Sodium 142 Potassium 4.5 Chloride 106 Carbon Dioxide 27 Anion Gap 14 BUN 25 H Creatinine 0.81 Estim Creat Clear Calc 46.3 Estimated GFR > 60 Random Glucose 166 H Lactic Acid 2.0 Calcium 9.5 Magnesium 1.9 Total Bilirubin 0.5 Direct Bilirubin 0.2 AST 18 ALT 20 Alkaline Phosphatase 88 Troponin I High Sens Total Protein 6.8 Albumin 3.8 Lipase 4 L Urine Color Urine Appearance Urine pH Ur Specific [place] Urine Protein Urine Glucose (UA) Urine Ketones Urine Blood Urine Nitrite Ur Leukocyte Esterase COVID-19 (ARABELLA) COVID-[facility] Clin Com 03/11/21 03/11/21 03/11/21 11:42 13:46 13:46 WBC RBC Hgb Hct MCV MCH MCHC RDW Plt Count MPV Immature Gran % (Auto) Neut % (Auto) Lymph % (Auto) [place] % (Auto) Eos % (Auto) Baso % (Auto) Lymph # (Auto) [place] # (Auto) Eos # (Auto) Baso # (Auto) Abs Immat Gran (auto) Absolute Neuts (auto) Absolute Nucleated RBC Nucleated RBC % (auto) PT 11.4 INR 1.0 APTT 33.0 Sodium Potassium Chloride Carbon Dioxide Anion Gap BUN Creatinine Estim Creat Clear Calc Estimated GFR Random Glucose Lactic Acid Calcium Magnesium Total Bilirubin Direct Bilirubin AST ALT Alkaline Phosphatase Troponin I High Sens 1341.7 H* Total Protein Albumin Lipase Urine Color Urine Appearance Urine pH Ur Specific [place] Urine Protein Urine Glucose (UA) Urine Ketones Urine Blood Urine Nitrite Ur Leukocyte Esterase COVID-19 (ARABELLA) Negative COVID-19 Clin Com See Note 03/11/21 03/11/21 13:46 15:27 WBC RBC Hgb Hct MCV MCH MCHC RDW Plt Count MPV Immature Gran % (Auto) Neut % (Auto) Lymph % (Auto) [place] % (Auto) Eos % (Auto) Baso % (Auto) Lymph # (Auto) [place] # (Auto) Eos # (Auto) Baso # (Auto) Abs Immat Gran (auto) Absolute Neuts (auto) Absolute Nucleated RBC Nucleated RBC % (auto) PT INR APTT Sodium Potassium Chloride Carbon Dioxide Anion Gap BUN Creatinine Estim Creat Clear Calc Estimated GFR Random Glucose Lactic Acid Calcium Magnesium Total Bilirubin Direct Bilirubin AST ALT Alkaline Phosphatase Troponin I High Sens 1399.4 H* Total Protein Albumin Lipase Urine Color YELLOW Urine Appearance HAZY Urine pH 6.0 Ur Specific [place] >= 1.030 H Urine Protein TRACE Urine Glucose (UA) NEG Urine Ketones 5 Urine Blood NEG Urine Nitrite NEG Ur Leukocyte Esterase NEG COVID-19 (ARABELLA) COVID-19 Clin Com Imaging Radiologist's impression: Impressions Abdomen/Pelvis CT 03/11/21 10:59 IMPRESSION: 1. Large amount of stool from cecum to mid sigmoid. No wall thickening or paracolic inflammatory changes. Normal appendix. No ascites or fluid collection. 2. Probable chronic cyst right adnexa 3.8 cm. Recommend follow-up pelvic ultrasound in 6 months. Assessment and Plan (1) T wave inversion in EKG: Status: Acute (2) Non-ST elevation [place] (NSTEMI): Status: Acute 80-year-old female with known coronary artery disease who is presenting for abdominal pain ends anti noticed to have EKG changes and positive troponin. Her abdominal pain is not upper quadrant but role the left lower quadrant pain. CT scan as raise concern for constipation. She has a lot of abdominal pain right now. I think we need to control this better. She has abnormal EKG and echocardiogram is showing changes consistent with LAD territory wall motion abnormality with differentials of takotsubo versus true ischemia. In any case right now I think we should leave her on heparin drip. She needs her abdominal pain and constipation to improve. As she improves we will transfer to [facility] and do a diagnostic angiogram on her. 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 Reviewed her old films at [facility] which did not show any significant LAD stenosis but that was 7 years ago. Continue baby aspirin as before. I will not start Plavix right now. Thank you for allowing me to participate in the care of your patient. Please feel free to contact me if you have any questions. Procedures Date of Service Date of Service: 03/11/21
--- NOTE | 2021-03-11 17:32 | PM.IMHP ---
History of Present Illness Date of Service: 03/11/21 80-year-old female who has history of known coronary disease with previous coronary artery stent in 2014 was presenting for left lower quadrant abdominal pain and vomiting.? She said she started having left lower quadrant abdominal pain yesterday with vomiting; states she has not had a bowel movement 3 days .? With these symptoms she came to the emergency department.? She denied any chest pain or shortness of breath. She had an EKG performed which showed sinus rhythm with left bundle-branch block and anterolateral T-wave inversions.? These were new compared to her previous EKG.? She denied any chest pain discomfort or shortness of breath.? Showed a troponin I level of 1341 and 1399. Lipase was 4. ER course CT abdomen done which demonstrated diffuse constipation; EKG and troponin as above. Patient seen by Cardiology and started on heparin drip. Admit to telemetry on heparin drip; plan to transfer in a.m. to [facility] as per Cardiology. At the time of exam, she has received Ativan and morphine and is quite comfortable; albeit alert Review of Systems Review of Systems: Denies chest pain Denies shortness of breath Denies nausea vomiting diarrhea PMFSH Medical History Hypertension Pertinent family history: . Social History Alcohol intake: never Patient Tobacco Use Status: Never used Tobacco Use of substances other than those prescribed or required for medical reasons: No Advance Directives: No Advance Directives Information Provided: No Meds Allergies Allergy/AdvReac Type Severity Reaction Status Date / Time No Known Allergies Allergy Unverified 02/02/20 17:40 [No Known Allergies*] Active Medications: Current Medications Acetaminophen (Acetaminophen 325 Mg Tablet) 650 mg PO Q6H PRN PRN Reason: Pain, Mild (Pain Scale 1-3) Aspirin (Aspirin Enteric Coated 81 Mg Tablet.Dr) 81 mg PO DAILY OZIEL Carvedilol (Carvedilol 25 Mg Tablet) 25 mg PO BID OZIEL; Protocol Fluticasone Propionate (Fluticasone Propionate Nasal 16 Gm [place]) 1 spray NOSTRIL-B DAILY [facility] Heparin Sodium (Porcine) (Heparin Sodium,Porcine 5,000 Unit/Ml Vial) 2,600 unit 40 unit/kg (2600 unit) IVPUSH PROTOCOL BOLUS PRN; Protocol PRN Reason: 40 unit/kg - Heparin Protocol Heparin Sodium (Porcine) (Heparin Sodium,Porcine 5,000 Unit/Ml Vial) 5,200 unit 80 unit/kg (5200 unit) IVPUSH PROTOCOL BOLUS PRN; Protocol PRN Reason: 80 unit/kg - Heparin Protocol Heparin Sodium/Sodium Chloride () 25,000 unit in 250 mls @ 0 mls/hr IVCONT .Q0M OZIEL; Protocol Last Admin: 03/11/21 16:36 Dose: 12 units/kg/hr, 7.73 mls/hr Documented by: Heparin Sodium/Sodium Chloride () 25,000 unit in 250 mls @ 0 mls/hr IVCONT .Q0M OZIEL; Protocol Lisinopril (Lisinopril 5 Mg Tablet) 5 mg PO DAILY OZIEL; Protocol Loratadine (Loratadine 10 Mg Tablet) 10 mg PO DAILY [facility] Morphine Sulfate (Morphine Sulfate 4 Mg/Ml Cartridge) 4 mg IVPUSH Q4H PRN; Protocol PRN Reason: Pain, Severe (Pain Scale 7-10) Nitroglycerin (Nitroglycerin 0.4 Mg Tab.Subl) 0.4 mg SUBLINGUAL Q5MX3 PRN PRN Reason: Chest Pain Non-Formulary Medication (Rosuvastatin [Crestor]) 1 tab PO BEDTIME [facility] Ondansetron HCl (Ondansetron Hcl 4 Mg/2 Ml Vial) 4 mg IVPUSH Q8H PRN PRN Reason: Nausea and Vomiting Pharmacy Consult (Consult Rx Perform Med Rec) 1 each MISCELLANE ONCE PRN PRN Reason: Consult order Sodium Chloride (0.9 % Sodium Chloride Flush 3 Ml Syringe) 3 ml IVFLUSH QSHIFT [facility] Vitamin D (Cholecalciferol (Vitamin D3) 25 Mcg Tablet) 50 mcg PO DAILY [facility] Home Medications Medication Instructions Recorded Confirmed Last Taken Type aspirin 81 mg tablet,delayed 1 tab PO DAILY 03/11/21 03/11/21 03/10/21 History release carvedilol 25 mg tablet 1 tab PO BID 03/11/21 03/11/21 03/10/21 History cetirizine 10 mg tablet 1 tab PO DAILY 03/11/21 03/11/21 03/10/21 History cholecalciferol (vitamin D3) 50 1 tab PO DAILY 03/11/21 03/11/2103/10/21 History mcg (2,000 unit) tablet fluticasone propionate 50 1 spray INTRANASAL DAILY 03/11/21 03/11/21 03/10/21 History mcg/actuation nasal spray,suspension lisinopril 5 mg tablet 1 tab PO DAILY 03/11/21 03/11/21 03/10/21 History meclizine 12.5 mg tablet 1 tab PO DAILY 03/11/21 03/11/21 03/10/21 History rosuvastatin 40 mg tablet (Crestor) 1 tab PO BEDTIME 03/11/21 03/11/21 03/10/21 History sumatriptan succinate 100 mg tablet 0.25 - 0.5 tab PO DAILY PRN 03/11/21 03/11/21 Unknown History Physical Exam Vital Signs and Narrative: Vital Signs: Last Vital Signs Temp 98 F 03/11/21 10:07 Pulse 81 03/11/21 16:40 Resp 18 03/11/21 16:40 BP 138/71 03/11/21 16:40 Pulse Ox 97 03/11/21 16:40 Body Mass Index 27.7 Const: Other: Awake alert comfortable. No complaints at this time HENMT: Other: Membranes moist; oropharynx clear Resp: Other: Clear to auscultation bilaterally; no rales rhonchi wheezes Cardio: Other: No S4; positive S1-S2; no GI: Other: (After morphine) abdomen soft nontender nondistended normoactive bowel sounds. No peritoneal signs Neuro: Other: Cranial nerves 2-12 grossly intact as tested. Motor is 5/5 all extremities. Sensation intact. Cognition is appropriate Extrem: Other: No edema bilaterally Results Labs CBC and Chem 7: 03/11/21 11:42 03/11/21 11:42 Labs: Laboratory Results - last 24 hr 03/11/21 03/11/21 03/11/21 11:42 11:42 11:42 MCV 92.8 MCH 31.8 MCHC 34.3 RDW 12.8 Plt Count 252 MPV 10.7 Immature Gran % (Auto) 0.4 Neut % (Auto) 81.9 H Lymph % (Auto) 11.6 L [place] % (Auto) 5.9 Eos % (Auto) 0.0 Baso % (Auto) 0.2 Lymph # (Auto) 1.5 [place] # (Auto) 0.8 Eos # (Auto) 0.0 Baso # (Auto) 0.0 Abs Immat Gran (auto) 0.05 H Absolute Neuts (auto) 10.5 H Absolute Nucleated RBC 0.000 Nucleated RBC % (auto) 0.0 PT INR APTT Anion Gap 14 Estim Creat Clear Calc 46.3 Estimated GFR > 60 Random Glucose 166 H Lactic Acid 2.0 Calcium 9.5 Magnesium 1.9 Total Bilirubin 0.5 Direct Bilirubin 0.2 AST 18 ALT 20 Alkaline Phosphatase 88 Troponin I High Sens Total Protein 6.8 Albumin 3.8 Lipase 4 L Urine Color Urine Appearance Urine pH Ur Specific [place] Urine Protein Urine Glucose (UA) Urine Ketones Urine Blood Urine Nitrite Ur Leukocyte Esterase COVID-19 (ARABELLA) COVID-ididwork 03/11/21 03/11/21 03/11/21 11:42 13:46 13:46 MCV MCH MCHC RDW Plt Count MPV Immature Gran % (Auto) Neut % (Auto) Lymph % (Auto) [place] % (Auto) Eos % (Auto) Baso % (Auto) Lymph # (Auto) [place] # (Auto) Eos # (Auto) Baso # (Auto) Abs Immat Gran (auto) Absolute Neuts (auto) Absolute Nucleated RBC Nucleated RBC % (auto) PT 11.4 INR 1.0 APTT 33.0 Anion Gap Estim Creat Clear Calc Estimated GFR Random Glucose Lactic Acid Calcium Magnesium Total Bilirubin Direct Bilirubin AST ALT Alkaline Phosphatase Troponin I High Sens 1341.7 H* Total Protein Albumin Lipase Urine Color Urine Appearance Urine pH Ur Specific [place] Urine Protein Urine Glucose (UA) Urine Ketones Urine Blood Urine Nitrite Ur Leukocyte Esterase COVID-19 (ARABELLA) Negative [facility] Com See Note 03/11/21 03/11/21 13:46 15:27 MCV MCH MCHC RDW Plt Count MPV Immature Gran % (Auto) Neut % (Auto) Lymph % (Auto) [place] % (Auto) Eos % (Auto) Baso % (Auto) Lymph # (Auto) [place] # (Auto) Eos # (Auto) Baso # (Auto) Abs Immat Gran (auto) Absolute Neuts (auto) Absolute Nucleated RBC Nucleated RBC % (auto) PT INR APTT Anion Gap Estim Creat Clear Calc Estimated GFR Random Glucose Lactic Acid Calcium Magnesium Total Bilirubin Direct Bilirubin AST ALT Alkaline Phosphatase Troponin I High Sens 1399.4 H* Total Protein Albumin Lipase Urine Color YELLOW Urine Appearance HAZY Urine pH 6.0 Ur Specific [place] >= 1.030 H Urine Protein TRACE Urine Glucose (UA) NEG Urine Ketones 5 Urine Blood NEG Urine Nitrite NEG Ur Leukocyte Esterase NEG COVID-19 (ARABELLA) COVID-19 Clin Com Imaging Radiologist's Impressions: Impressions Abdomen/Pelvis CT 03/11/21 10:59 IMPRESSION: 1. Large amount of stool from cecum to mid sigmoid. No wall thickening or paracolic inflammatory changes. Normal appendix. No ascites or fluid collection. 2. Probable chronic cyst right adnexa 3.8 cm. Recommend follow-up pelvic ultrasound in 6 months. Assessment and Plan (1) Non-ST elevation [place] (NSTEMI): Status: Acute (2) Constipation: Qualifiers: Constipation type: unspecified constipation type Qualified Code(s): K59.00 - Constipation, unspecified Status: Acute (3) Abdominal pain: Qualifiers: Abdominal location: left lower quadrant Qualified Code(s): R10.32 - Left lower quadrant pain Status: Acute 80-year-old female with known cardiac disease presents with abdominal pain and found to have EKG changes and positive troponins. CT of abdomen demonstrates constipation; seen by Cardiology echo showing changes consistent with LAD territory wall motion abnormality differential to include takosubo versus true ischemia. She will be admitted on heparin drip for pain control with likely transfer to [facility] in a.m. for calf 1.NSTEMI Admit to telemetry; continue heparin protocol. Recheck troponin later this evening and tomorrow a.m. Will discuss in a.m. with re: time of transfer 2. Abdominal pain Likely secondary to constipation. Pain improved with morphine. Will continue same. Will avoid aggressive prokinetic such given cardiac status. This can better be addressed after cardiac issues are clarified by imaging 3. Hypertension Will continue carvedilol and lisinopril as ordered. Followed BP's and adjust as indicated 4. Hyperlipidemia Continue statin as ordered (substitution as per pharmacy) 5. Migraines (by history) Tryptans contraindicated given cardiac issues. Will treat with Tylenol and address as needed 6 DVT prophylaxis: Heparin drip Full code Quality Stroke Does the patient have a stroke diagnosis?: No VTE Prior VTE?: No VTE Risk Level:: Medical - moderate - high VTE Device Contraindication: Treatment Not Indicated VTE Drug Contraindication: N/A - Med Ordered
--- NOTE | 2021-03-11 19:52 | MHC.CM.PN ---
CM met with admitted patient with bed assignment pending with chief medical director, as pt is Green[place]ic speaking only. A&Ox3. IMM reviewed and signed 03/11/2021@[id number]. No HCP on file. HCP reviewed, completed and signed per protocol. Copies given and uploaded into [employer] and [facility]. HCP/S.O. Paul Trinidad ([phone]). Pt lives with S.O. Pt uses no DME or services. Pt has [employer] insurance. Fully vaccinated with Moderna. D/C plan Probable transfer to [facility] 03/12 for cardiac workup. Transportation provided by [facility] to [facility] if transferred. CM to follow for d/c needs.
--- NOTE | 2021-03-11 20:17 | PC.NURSE ---
Pt to floor in stable condition w/ all belongings, heparin gtt infusing, transported attached to portable monitor and accompanied by Andreas TORRES
[2021-03-11] MEDS: Morphine Sulfate 4 MG/ML CARTRIDGE IVPUSH (21:07)
[2021-03-11] MEDS: Atorvastatin Calcium 80 MG TABLET PO (21:35)
[2021-03-11] MEDS: 0.9 % Sodium Chloride Flush 3 ML SYRINGE IVFLUSH (21:35)
[2021-03-11] MEDS: carvediloL 25 MG TABLET PO (21:35)
[2021-03-11 22:41] LABS: Hematocrit 40.8 % (37-47); Hemoglobin 14.2 g/dl (12.0-16.0); Mean Corpuscular HGB Conc 34.8 g/dl (31.0-35.0); Mean Corpuscular Hemoglobin 32.3 pg (27.0-33.0); Mean Corpuscular Volume 92.9 fL (80-98); Platelet Count 213 X10*3/uL (160-400); Red Blood Count 4.39 X10*6/uL (4.20-5.50); Red Cell Distribution Width 13.1 % (11.0-16.0); White Blood Count 13.2 X10*3/uL (4.8-10.8)
[2021-03-11 23:05] LABS: PTT Heparin Drip 198.3 SEC (53-77.9)
[2021-03-12 00:35] LABS: PTT Heparin Drip 79.8 SEC (53-77.9)
[2021-03-12 04:00] VITALS: BP 110/52; PULSE 68; RESP 20; TEMP 36.5; O2SAT 97
[2021-03-12] MEDS: Acetaminophen 325 MG TABLET 650 MG PO ×2 (06:26→15:47)
[2021-03-12 07:29] LABS: MANUAL DIFF FLAG NO
[2021-03-12 07:35] LABS: Basophils Percent Auto 0.1 % (0-2); Eosinophils Absolute Auto 0.1 X10*3/uL (0.0-0.4); Eosinophils Percent Auto 0.5 % (0-4); Hemoglobin 12.9 g/dl (12.0-16.0); Imm Gran Abs Auto 0.03 X10*3/uL (0.00-0.03); Imm Gran Pct Auto 0.3 % (0.0-0.4); Lymphocytes Absolute Auto 2.2 X10*3/uL (1.2-4.9); Lymphocytes Percent Auto 22.7 % (20-40); Mean Corpuscular HGB Conc 33.1 g/dl (31.0-35.0); Mean Corpuscular Volume 93.8 fL (80-98); Mean Platelet Volume 11.1 fL (9.4-12.3); Monocytes Absolute Auto 0.8 X10*3/uL (0.1-1.2); Monocytes Percent Auto 8.1 % (2-11); Neutrophils Absolute Auto 6.6 X10*3/uL (2.0-8.3); Neutrophils Percent Auto 68.3 % (45-73); Platelet Count 205 X10*3/uL (160-400); Red Blood Count 4.16 X10*6/uL (4.20-5.50); Red Cell Distribution Width 13.2 % (11.0-16.0); White Blood Count 9.6 X10*3/uL (4.8-10.8)
[2021-03-12 07:44] LABS: Prothrombin Time 11.6 SEC (9.9-13.0)
[2021-03-12 07:47] LABS: PTT Heparin Drip 57.7 SEC (53-77.9)
[2021-03-12 07:50] VITALS: BP 104/59; PULSE 72; RESP 20; TEMP 36.5; O2SAT 96
[2021-03-12 08:02] LABS: Alanine Aminotransferase 16 U/L (0-31); Albumin Level 3.3 g/dL (3.5-5.0); Alkaline Phosphatase 74 U/L (39-117); Anion Gap 13 (12-20); Aspartate Amino Transferase 17 U/L (5-31); Bilirubin Total 0.6 mg/dL (0.0-1.0); Blood Urea Nitrogen 24 mg/dL (9-16); Calcium 8.2 mg/dL (8.4-10.2); Carbon Dioxide 22 mmol/L (22-29); Chloride 108 mmol/L (96-108); Creatinine Clr Calc Pharmacy 48.1; Estimated Glomerular Filt Rate > 60; Glucose Fasting 171 mg/dL (60-99); Potassium 4.3 mmol/L (3.3-5.1); Sodium 139 mmol/L (135-145); Total Protein 5.9 g/dL (6.5-8.0)
[2021-03-12 09:18] LABS: B Type Natriuretic Peptide 407 pg/mL (<100); Troponin-I High Sensitivity 368.3 ng/L (<3.5-17.0)
[2021-03-12 09:41] VITALS: BP 104/49; PULSE 80
[2021-03-12] MEDS: lisinopriL 5 MG TABLET PO (09:41)
[2021-03-12] MEDS: carvediloL 25 MG TABLET PO (09:41)
[2021-03-12] MEDS: Aspirin Enteric Coated 81 MG TABLET.DR PO (09:42)
[2021-03-12] MEDS: Cholecalciferol (Vitamin D3) 25 MCG TABLET 50 MCG PO (09:42)
[2021-03-12] MEDS: Loratadine 10 MG TABLET PO (09:42)
[2021-03-12] MEDS: 0.9 % Sodium Chloride Flush 3 ML SYRINGE IVFLUSH ×2 (09:43→15:48)
[2021-03-12] MEDS: Fluticasone Propionate Nasal 16 GM SPRAY 1 SPRAY NOSTRIL-B (09:45)
[2021-03-12 12:00] VITALS: BP 99/56; PULSE 66; RESP 18; TEMP 36.2; O2SAT 94
--- NOTE | 2021-03-12 12:03 | P.DS_ITS ---
DS: Providers Provider Date of Service: 03/12/21 Date of admission: 03/11/21 17:24 Primary care physician: Lubna Fong MD Consults: 03/12/21 09:13 Consult to Cardiology Routine Consulting Provider: Julio Oh Reason for consultation: NSTEMI Has provider been notified: Yes DS: Diagnosis Discharge Diagnosis (1) Non-ST elevation NH (NSTEMI): Status: Acute (2) Constipation: Status: Acute (3) Abdominal pain: Status: Acute DS: Summary Hospital Course Hospital Course: 80-year-old female who has history of known coronary disease with previous coronary artery stent in 2013 was presenting for left lower quadrant abdominal pain and vomiting.? She said she started having left lower quadrant abdominal pain yesterday with vomiting; states she has not had a bowel movement 3 days .? With these symptoms she came to the emergency department.? She denied any chest pain or shortness of breath. She had an EKG performed which showed sinus rhythm with left bundle-branch block and anterolateral T-wave inversions.? These were new compared to her previous EKG.? She denied any chest pain discomfort or shortness of breath.? Showed a troponin I level of 1341 and 1399. Lipase was 4. ER course CT abdomen done which demonstrated diffuse constipation; EKG and troponin as above.? Patient seen by Cardiology and started on heparin drip.? Admit to telemetry on heparin drip; plan to transfer in a.m. to [facility] as per Cardiology.? At the time of exam, she has received Ativan and morphine and is quite comfortable; albeit alert Hospital Course Uneventful overnight. Patient's abdominal pain subsided. Initial troponin on admission 1341.7; peak 1399.4; morning of admission 368.3. On the morning of discharge, she has remained pain free on heparin drip. She is medically acceptable for transfer to [facility] for further diagnostics as per Dr. Warner Time Spent with Patient Time attestation: Total time spent providing and/or coordinating discharge services: Discharge coordination time: Greater than 30 minutes Quality: Stroke Does the patient have a stroke diagnosis?: No Physical Exam Vital Signs: Vital Signs: Last Vital Signs Temp 97.7 F 03/12/21 07:50 Pulse 80 03/12/21 09:41 Resp 20 03/12/21 07:50 BP 104/49 L 03/12/21 09:41 Pulse Ox 96 03/12/21 07:50 Body Mass Index 27.7 Const: Other: Awake alert comfortable. No complaints at this time HENMT: Other: Membranes moist; oropharynx clear Resp: Other: Clear to auscultation bilaterally; no rales rhonchi wheezes Cardio: Other: No S4; positive S1-S2; no GI: Other: Abdomen soft nontender nondistended normoactive bowel sounds. No peritoneal signs Neuro: Other: Cranial nerves 2-12 grossly intact as tested. Motor is 5/5 all extremities. Sensation intact. Cognition is appropriate Extrem: Other: No edema bilaterally DS: Data Data Completed and Pending Labs on day of discharge: Laboratory Results - last 24 hr 03/11/21 03/11/21 03/11/21 11:42 11:42 11:42 WBC 12.8 H RBC 4.71 Hgb 15.0 Hct 43.7 MCV 92.8 MCH 31.8 MCHC 34.3 RDW 12.8 Plt Count 252 MPV 10.7 Immature Gran % (Auto) 0.4 Neut % (Auto) 81.9 H Lymph % (Auto) 11.6 L [place] % (Auto) 5.9 Eos % (Auto) 0.0 Baso % (Auto) 0.2 Lymph # (Auto) 1.5 [place] # (Auto) 0.8 Eos # (Auto) 0.0 Baso # (Auto) 0.0 Abs Immat Gran (auto) 0.05 H Absolute Neuts (auto) 10.5 H Absolute Nucleated RBC 0.000 Nucleated RBC % (auto) 0.0 PT INR APTT PTT (Heparin Protocol) Sodium 142 Potassium 4.5 Chloride 106 Carbon Dioxide 27 Anion Gap 14 BUN 25 H Creatinine 0.81 Estim Creat Clear Calc 46.3 Estimated GFR > 60 Random Glucose 166 H Fasting Glucose Lactic Acid 2.0 Calcium 9.5 Magnesium 1.9 Total Bilirubin 0.5 Direct Bilirubin 0.2 AST 18 ALT 20 Alkaline Phosphatase 88 Troponin I High Sens B-Natriuretic Peptide Total Protein 6.8 Albumin 3.8 Lipase 4 L Urine Color Urine Appearance Urine pH Ur Specific [place] Urine Protein Urine Glucose (UA) Urine Ketones Urine Blood Urine Nitrite Ur Leukocyte Esterase COVID-19 (ARABELLA) COVID-19 Clin Com 03/11/21 03/11/21 03/11/21 11:42 13:46 13:46 WBC RBC Hgb Hct MCV MCH MCHC RDW Plt Count MPV Immature Gran % (Auto) Neut % (Auto) Lymph % (Auto) [place] % (Auto) Eos % (Auto) Baso % (Auto) Lymph # (Auto) [place] # (Auto) Eos # (Auto) Baso # (Auto) Abs Immat Gran (auto) Absolute Neuts (auto) Absolute Nucleated RBC Nucleated RBC % (auto) PT 11.4 INR 1.0 APTT 33.0 PTT (Heparin Protocol) Sodium Potassium Chloride Carbon Dioxide Anion Gap BUN Creatinine Estim Creat Clear Calc Estimated GFR Random Glucose Fasting Glucose Lactic Acid Calcium Magnesium Total Bilirubin Direct Bilirubin AST ALT Alkaline Phosphatase Troponin I High Sens 1341.7 H* B-Natriuretic Peptide Total Protein Albumin Lipase Urine Color Urine Appearance Urine pH Ur Specific [place] Urine Protein Urine Glucose (UA) Urine Ketones Urine Blood Urine Nitrite Ur Leukocyte Esterase COVID-19 (ARABELLA) Negative COVID-19 [facility] See Note 03/11/21 03/11/21 03/11/21 13:46 15:27 22:31 WBC 13.2 H RBC 4.39 Hgb 14.2 Hct 40.8 MCV 92.9 MCH 32.3 MCHC 34.8 RDW 13.1 Plt Count 213 MPV 10.0 Immature Gran % (Auto) Neut % (Auto) Lymph % (Auto) [place] % (Auto) Eos % (Auto) Baso % (Auto) Lymph # (Auto) [place] # (Auto) Eos # (Auto) Baso # (Auto) Abs Immat Gran (auto) Absolute Neuts (auto) Absolute Nucleated RBC 0.000 Nucleated RBC % (auto) 0.0 PT INR APTT PTT (Heparin Protocol) Sodium Potassium Chloride Carbon Dioxide Anion Gap BUN Creatinine Estim Creat Clear Calc Estimated GFR Random Glucose Fasting Glucose Lactic Acid Calcium Magnesium Total Bilirubin Direct Bilirubin AST ALT Alkaline Phosphatase Troponin I High Sens 1399.4 H* B-Natriuretic Peptide Total Protein Albumin Lipase Urine Color YELLOW Urine Appearance HAZY Urine pH 6.0 Ur Specific [place] >= 1.030 H Urine Protein TRACE Urine Glucose (UA) NEG Urine Ketones 5 Urine Blood NEG Urine Nitrite NEG Ur Leukocyte Esterase NEG COVID-19 (ARABELLA) COVID-19 Pcsso Com 03/11/21 03/12/21 03/12/21 22:31 00:19 00:20 WBC RBC Hgb Hct MCV MCH MCHC RDW Plt Count MPV Immature Gran % (Auto) Neut % (Auto) Lymph % (Auto) [place] % (Auto) Eos % (Auto) Baso % (Auto) Lymph # (Auto) [place] # (Auto) Eos # (Auto) Baso # (Auto) Abs Immat Gran (auto) Absolute Neuts (auto) Absolute Nucleated RBC Nucleated RBC % (auto) PT INR APTT PTT (Heparin Protocol) 198.3 H* 79.8 H D Sodium Potassium Chloride Carbon Dioxide Anion Gap BUN Creatinine Estim Creat Clear Calc Estimated GFR Random Glucose Fasting Glucose Lactic Acid Calcium Magnesium Total Bilirubin Direct Bilirubin AST ALT Alkaline Phosphatase Troponin I High Sens 668.0 H* D B-Natriuretic Peptide Total Protein Albumin Lipase Urine Color Urine Appearance Urine pH Ur Specific [place] Urine Protein Urine Glucose (UA) Urine Ketones Urine Blood Urine Nitrite Ur Leukocyte Esterase COVID-19 (ARABELLA) COVIDHipster 03/12/21 03/12/21 03/12/21 07:06 07:06 07:06 WBC 9.6 RBC 4.16 L Hgb 12.9 Hct 39.0 MCV 93.8 MCH 31.0 MCHC 33.1 RDW 13.2 Plt Count 205 MPV 11.1 Immature Gran % (Auto) 0.3 Neut % (Auto) 68.3 Lymph % (Auto) 22.7 [place] % (Auto) 8.1 Eos % (Auto) 0.5 Baso % (Auto) 0.1 Lymph # (Auto) 2.2 [place] # (Auto) 0.8 Eos # (Auto) 0.1 Baso # (Auto) 0.0 Abs Immat Gran (auto) 0.03 Absolute Neuts (auto) 6.6 Absolute Nucleated RBC 0.000 Nucleated RBC % (auto) 0.0 PT 11.6 INR 1.0 APTT PTT (Heparin Protocol) Sodium Cancelled Potassium Cancelled Chloride Cancelled Carbon Dioxide Cancelled Anion Gap Cancelled BUN Cancelled Creatinine Cancelled Estim Creat Clear Calc Cancelled Estimated GFR Cancelled Random Glucose Cancelled Fasting Glucose Lactic Acid Calcium Cancelled Magnesium Total Bilirubin Direct Bilirubin AST ALT Alkaline Phosphatase Troponin I High Sens B-Natriuretic Peptide Total Protein Albumin Lipase Urine Color Urine Appearance Urine pH Ur Specific [place] Urine Protein Urine Glucose (UA) Urine Ketones Urine Blood Urine Nitrite Ur Leukocyte Esterase COVID-19 (ARABELLA) COVID-19 [facility] 03/12/21 03/12/21 03/12/21 07:06 07:06 08:23 WBC RBC Hgb Hct MCV MCH MCHC RDW Plt Count MPV Immature Gran % (Auto) Neut % (Auto) Lymph % (Auto) [place] % (Auto) Eos % (Auto) Baso % (Auto) Lymph # (Auto) [place] # (Auto) Eos # (Auto) Baso # (Auto) Abs Immat Gran (auto) Absolute Neuts (auto) Absolute Nucleated RBC Nucleated RBC % (auto) PT INR APTT PTT (Heparin Protocol) 57.7 D Sodium 139 Potassium 4.3 Chloride 108 Carbon Dioxide 22 Anion Gap 13 BUN 24 H Creatinine 0.78 Estim Creat Clear Calc 48.1 Estimated GFR > 60 Random Glucose Fasting Glucose 171 H Lactic Acid Calcium 8.2 L D Magnesium Total Bilirubin 0.6 Direct Bilirubin AST 17 ALT 16 Alkaline Phosphatase 74 Troponin I High Sens 368.3 H* B-Natriuretic Peptide 407 H Total Protein 5.9 L Albumin 3.3 L Lipase Urine Color Urine Appearance Urine pH Ur Specific [place] Urine Protein Urine Glucose (UA) Urine Ketones Urine Blood Urine Nitrite Ur Leukocyte Esterase COVID-19 (ARABELLA) COVID-19 Clin Com Discharge Plan Discharge Patient Disposition: Xfer Acute Care Hospital Discharge Diagnosis: NSTEMI Referrals: [facility] [Other] - 1 Week Lubna Fong MD [Primary Care Provider] - 1 Week Discharge Medications: New heparin(porcine) in 0.45% NaCl 25,000 unit/250 mL Parenteral Solution 25,000 unit continuous IV infusion .Q0M Qty: 250 RF: 0 heparin (porcine) 5,000 unit/mL Solution 2,600 unit IVPUSH PROTOCOL BOLUS PRN (Reason: 40 Unit/Kg - Heparin Protocol) Qty: 250 RF: 0 Continued carvedilol 25 mg tablet 1 tab PO BID RF: 0 cetirizine 10 mg tablet 1 tab PO DAILY RF: 0 sumatriptan succinate 100 mg tablet 0.25 - 0.5 tab PO DAILY PRN (Reason: migraine) RF: 0 meclizine 12.5 mg tablet 1 tab PO DAILY RF: 0 aspirin 81 mg tablet,delayed release (DR/EC) 1 tab PO DAILY RF: 0 lisinopril 5 mg tablet 1 tab PO DAILY RF: 0 fluticasone propionate 50 mcg/actuation spray,suspension 1 spray intranasal DAILY RF: 0 rosuvastatin [Crestor] 40 mg tablet 1 tab PO BEDTIME RF: 0 cholecalciferol (vitamin D3) 50 mcg (2,000 unit) tablet 1 tab PO DAILY RF: 0 Discharge Orders: Discharge Order (Routine); Ordered 03/12/21 Ordered By: Pranav Aguilar Diet: advance to usual diet Activity on Discharge: As tolerated Stand Alone Forms: Patient Portal Discharge page Care Plan Goals: Diagnostics as per Interventional Cardiology Health Concerns: Continue current care Plan of Treatment: Continue current care. Transfer [facility] for further diagnostics Assessment: Stable on transfer
--- NOTE | 2021-03-12 12:09 | MHC.CM.PN ---
pt being dcd to [facility]
[2021-03-12 13:03] LABS: PTT Heparin Drip 57.7 SEC (53-77.9)
--- NOTE | 2021-03-12 14:43 | P.PNCA_ITS ---
Subjective Subjective Date of Service: 03/12/21 Interval history: Abdominal pain is improving. Physical Exam Vital Signs: Last Vital Signs Temp 97.2 F 03/12/21 12:00 Pulse 66 03/12/21 12:00 Resp 18 03/12/21 12:00 BP 99/56 L 03/12/21 12:00 Pulse Ox 94 03/12/21 12:00 Body Mass Index 27.7 GENERAL APPEARANCE:? Distress due to abdominal pain NECK: no carotid bruit, no jugular venous distention. SKIN: no suspicious lesions, warm and dry. HEART: no murmurs, regular rate and rhythm. LUNGS: clear to auscultation bilaterally. ABDOMEN: soft. EXTREMITIES: no edema. PERIPHERAL PULSES: equal. NEUROLOGIC: No gross deficits, AAO X 3 Results Labs and Meds Result diagrams: 03/12/21 07:06 03/12/21 07:06 Lab results: Laboratory Results - last 24 hr 03/11/21 03/11/21 03/11/21 15:27 22:31 22:31 WBC 13.2 H RBC 4.39 Hgb 14.2 Hct 40.8 MCV 92.9 MCH 32.3 MCHC 34.8 RDW 13.1 Plt Count 213 MPV 10.0 Immature Gran % (Auto) Neut % (Auto) Lymph % (Auto) [place] % (Auto) Eos % (Auto) Baso % (Auto) Lymph # (Auto) [place] # (Auto) Eos # (Auto) Baso # (Auto) Abs Immat Gran (auto) Absolute Neuts (auto) Absolute Nucleated RBC 0.000 Nucleated RBC % (auto) 0.0 PT INR PTT (Heparin Protocol) 198.3 H* Sodium Potassium Chloride Carbon Dioxide Anion Gap BUN Creatinine Estim Creat Clear Calc Estimated GFR Random Glucose Fasting Glucose Calcium Total Bilirubin AST ALT Alkaline Phosphatase Troponin I High Sens 1399.4 H* B-Natriuretic Peptide Total Protein Albumin 03/12/21 03/12/21 03/12/21 00:19 00:20 07:06 WBC 9.6 RBC 4.16 L Hgb 12.9 Hct 39.0 MCV 93.8 MCH 31.0 MCHC 33.1 RDW 13.2 Plt Count 205 MPV 11.1 Immature Gran % (Auto) 0.3 Neut % (Auto) 68.3 Lymph % (Auto) 22.7 [place] % (Auto) 8.1 Eos % (Auto) 0.5 Baso % (Auto) 0.1 Lymph # (Auto) 2.2 [place] # (Auto) 0.8 Eos # (Auto) 0.1 Baso # (Auto) 0.0 Abs Immat Gran (auto) 0.03 Absolute Neuts (auto) 6.6 Absolute Nucleated RBC 0.000 Nucleated RBC % (auto) 0.0 PT INR PTT (Heparin Protocol) 79.8 H D Sodium Potassium Chloride Carbon Dioxide Anion Gap BUN Creatinine Estim Creat Clear Calc Estimated GFR Random Glucose Fasting Glucose Calcium Total Bilirubin AST ALT Alkaline Phosphatase Troponin I High Sens 668.0 H* D B-Natriuretic Peptide Total Protein Albumin 03/12/21 03/12/21 03/12/21 07:06 07:06 07:06 WBC RBC Hgb Hct MCV MCH MCHC RDW Plt Count MPV Immature Gran % (Auto) Neut % (Auto) Lymph % (Auto) [place] % (Auto) Eos % (Auto) Baso % (Auto) Lymph # (Auto) [place] # (Auto) Eos # (Auto) Baso # (Auto) Abs Immat Gran (auto) Absolute Neuts (auto) Absolute Nucleated RBC Nucleated RBC % (auto) PT 11.6 INR 1.0 PTT (Heparin Protocol) 57.7 D Sodium Cancelled Potassium Cancelled Chloride Cancelled Carbon Dioxide Cancelled Anion Gap Cancelled BUN Cancelled Creatinine Cancelled Estim Creat Clear Calc Cancelled Estimated GFR Cancelled Random Glucose Cancelled Fasting Glucose Calcium Cancelled Total Bilirubin AST ALT Alkaline Phosphatase Troponin I High Sens B-Natriuretic Peptide Total Protein Albumin 03/12/21 03/12/21 03/12/21 07:06 08:23 12:47 WBC RBC Hgb Hct MCV MCH MCHC RDW Plt Count MPV Immature Gran % (Auto) Neut % (Auto) Lymph % (Auto) [place] % (Auto) Eos % (Auto) Baso % (Auto) Lymph # (Auto) [place] # (Auto) Eos # (Auto) Baso # (Auto) Abs Immat Gran (auto) Absolute Neuts (auto) Absolute Nucleated RBC Nucleated RBC % (auto) PT INR PTT (Heparin Protocol) 57.7 Sodium 139 Potassium 4.3 Chloride 108 Carbon Dioxide 22 Anion Gap 13 BUN 24 H Creatinine 0.78 Estim Creat Clear Calc 48.1 Estimated GFR > 60 Random Glucose Fasting Glucose 171 H Calcium 8.2 L D Total Bilirubin 0.6 AST 17 ALT 16 Alkaline Phosphatase 74 Troponin I High Sens 368.3 H* B-Natriuretic Peptide 407 H Total Protein 5.9 L Albumin 3.3 L Imaging Radiologist's impression: Impressions Abdomen/Pelvis CT 03/11/21 10:59 IMPRESSION: 1. Large amount of stool from cecum to mid sigmoid. No wall thickening or paracolic inflammatory changes. Normal appendix. No ascites or fluid collection. 2. Probable chronic cyst right adnexa 3.8 cm. Recommend follow-up pelvic ultrasound in 6 months. Progress Note: A&P Assessment and plan (1) Abdominal pain: Status: Acute (2) Non-ST elevation NE (NSTEMI): Status: Acute (3) T wave inversion in EKG: Status: Acute Assessment and Plan: 80-year-old female here for abdominal pain and elevated troponin with anterolateral T-wave inversions. Echocardiography showing LAD territory wall motion abnormality. She has no hi story of right coronary artery stenting in the past. 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 I have discussed with her that she needs cardiac catheterization and I am transferred to [facility]. She is known to have been [facility] and follows with Dr. Mays. Will transfer to [facility] and [facility] regarding cardiology and she will get cardiac catheterization tomorrow. In the meantime she should continue heparin drip. Thank you for allowing me to participate in the care of your patient. Please feel free to contact me if you have any questions. Fall Risk Details Current Medications: Current Medications Acetaminophen (Acetaminophen 325 Mg Tablet) 650 mg PO Q6H PRN PRN Reason: Pain, Mild (Pain Scale 1-3) Last Admin: 03/12/21 06:26 Dose: 650 mg Documented by: Aspirin (Aspirin Enteric Coated 81 Mg Tablet.) 81 mg PO DAILY [facility] Last Admin: 03/12/21 09:42 Dose: 81 mg Documented by: Atorvastatin Calcium (Atorvastatin Calcium 80 Mg Tablet) 80 mg PO BEDTIME [facility] Last Admin: 03/11/21 21:35 Dose: 80 mg Documented by: Carvedilol (Carvedilol 25 Mg Tablet) 25 mg PO BID [facility]; Protocol Last Admin: 03/12/21 09:41 Dose: 25 mg Documented by: Fluticasone Propionate (Fluticasone Propionate Nasal 16 Gm [place]) 1 spray NO STRIL-B DAILY [facility] Last Admin: 03/12/21 09:45 Dose: 1 spray Documented by: Heparin Sodium (Porcine) (Heparin Sodium,Porcine 5,000 Unit/Ml Vial) 2,600 unit 40 unit/kg (2600 unit) IVPUSH PROTOCOL BOLUS PRN; Protocol PRN Reason: 40 unit/kg - Heparin Protocol Heparin Sodium (Porcine) (Heparin Sodium,Porcine 5,000 Unit/Ml Vial) 5,200 unit 80 unit/kg (5200 unit) IVPUSH PROTOCOL BOLUS PRN; Protocol PRN Reason: 80 unit/kg - Heparin Protocol Heparin Sodium (Porcine) (Heparin Sodium,Porcine 5,000 Unit/Ml Vial) 5,200 unit 80 unit/kg (5200 unit) IVPUSH PROTOCOL BOLUS PRN; Protocol PRN Reason: 80 unit/kg - Heparin Protocol Heparin Sodium (Porcine) (Heparin Sodium,Porcine 5,000 Unit/Ml Vial) 2,600 unit 40 unit/kg (2600 unit) IVPUSH PROTOCOL BOLUS PRN; Protocol PRN Reason: 40 unit/kg - Heparin Protocol Heparin Sodium/Sodium Chloride () 25,000 unit in 250 mls @ 0 mls/hr IVCONT .Q0M OZIEL; Protocol Last Titration: 03/12/21 13:18 Dose: 8 units/kg/hr, 5.15 mls/hr Documented by: Heparin Sodium/Sodium Chloride () 25,000 unit in 250 mls @ 0 mls/hr IVCONT .Q0M OZIEL; Protocol Lisinopril (Lisinopril 5 Mg Tablet) 5 mg PO DAILY [facility]; Protocol Last Admin: 03/12/21 09:41 Dose: 5 mg Documented by: Loratadine (Loratadine 10 Mg Tablet) 10 mg PO DAILY [facility] Last Admin: 03/12/21 09:42 Dose: 10 mg Documented by: Lorazepam (Lorazepam 2 Mg/Ml Vial) 1 mg IVPUSH Q6H PRN PRN Reason: Anxiety Morphine Sulfate (Morphine Sulfate 4 Mg/Ml Cartridge) 4 mg IVPUSH Q4H PRN; Protocol PRN Reason: Pain, Severe (Pain Scale 7-10) Last Admin: 03/11/21 21:07 Dose: 4 mg Documented by: Nitroglycerin (Nitroglycerin 0.4 Mg Tab.Subl) 0.4 mg SUBLINGUAL Q5MX3 PRN PRN Reason: Chest Pain Ondansetron HCl (Ondansetron Hcl 4 Mg/2 Ml Vial) 4 mg IVPUSH Q8H PRN PRN Reason: Nausea and Vomiting Pharmacy Consult (Consult Rx Perform Med Rec) 1 each MISCELLANE ONCE PRN PRN Reason: Consult order Sodium Chloride (0.9 % Sodium Chloride Flush 3 Ml Syringe) 3 ml IVFLUSH QSHIFT [facility] Last Admin: 03/12/21 09:43 Dose: 3 ml Documented by: Vitamin D (Cholecalciferol (Vitamin D3) 25 Mcg Tablet) 50 mcg PO DAILY [facility] Last Admin: 03/12/21 09:42 Dose: 50 mcg Documented by: Time Spent With Patient Time: Total time spent is greater than 50% in coordination of care (as doc umented) at patient's floor/unit and/or counseling patient: Time with patient: 25 - 35 minutes Progress Note: Quality Stroke Does the patient have a stroke diagnosis?: No Procedures Date of Service Date of Service: 03/12/21
[2021-03-12 15:09] VITALS: BP 109/56; PULSE 75; RESP 17; TEMP 36.8; O2SAT 98
== END 2021-03-12 17:44 | disposition short-term general hospital (02) | DRG 282 ==
LOC: HO.ED 16:49 → HO.EDOVER 17:48 → HO.IMC 19:26
PROVIDERS: Admitting Provider Hospitalist; Emergency Provider Emergency Medicine; PCP Family Medicine; Visit Provider Hospitalist
DX: I21.4 Non-ST elevation (NSTEMI) myocardial infarction (principal); K59.00 Constipation, unspecified; I25.10 Atherosclerotic heart disease of native coronary artery without angina pectoris; E78.5 Hyperlipidemia, unspecified; G43.909 Migraine, unspecified, not intractable, without status migrainosus; Z20.822 Contact with and (suspected) exposure to COVID-19; Z79.82 Long term (current) use of aspirin; Z79.51 Long term (current) use of inhaled steroids; Z79.899 Other long term (current) drug therapy
CPT/HCPCS: 36415; 74177; 80048; 80053; 80076; 81003; 83605; 83690; 83735; 83880; 84484; 85025; 85027; 85610; 85730; 87040; 87635; 93005; 93306; 99285; J2060; J2270; J2405; Q9957; Q9967

== ENCOUNTER 2021-08-14 11:10 | Emergency (ER) | payer OTHER, SELFPAY ==
[2021-08-14 11:18] VITALS: BP 138/92; BP 144/58; PULSE 68; PULSE 88; RESP 18; TEMP 36.4; O2SAT 100; BMI 29.1
--- NOTE | 2021-08-14 11:23 | ED_ITS ---
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 Last year she started with vertigo in January and now having the same issue. MD elicited complaint: dizziness and vertigo Pertinent past history: BPPV Onset (ago): hour(s) Timing: sudden onset Severity: moderate Description: sense of movement and room spinning Relieving factors: remaining still and keeping eyes closed Associated symptoms: nausea and vomiting Related Data Home Medications Medication Instructions Recorded Confirmed aspirin 81 mg tablet,delayed 1 tab PO DAILY 03/11/21 03/11/21 release carvedilol 25 mg tablet 1 tab PO BID 03/11/21 03/11/21 cetirizine 10 mg tablet 1 tab PO DAILY 03/11/21 03/11/21 cholecalciferol (vitamin D3) 50 1 tab PO DAILY 03/11/21 03/11/21 mcg (2,000 unit) tablet fluticasone propionate 50 1 spray INTRANASAL DAILY 03/11/21 03/11/21 mcg/actuation nasal spray,suspension lisinopril 5 mg tablet 1 tab PO DAILY 03/11/21 03/11/21 meclizine 12.5 mg tablet 1 tab PO DAILY 03/11/21 03/11/21 rosuvastatin 40 mg tablet (Crestor) 1 tab PO BEDTIME 03/11/21 03/11/21 sumatriptan succinate 100 mg tablet 0.25 - 0.5 tab PO DAILY PRN 03/11/21 03/11/21 Previous Rx's Medication Instructions Recorded heparin (porcine) 25,000 unit/250 25,000 unit (250 mL) CONTINUOUS IV 03/12/21 mL in 0.45 % sodium chloride IV INFUSION .Q0M #250 ml soln heparin (porcine) 5,000 unit/mL 2,600 unit (0.52 mL) IVPUSH 03/12/21 injection solution PROTOCOL BOLUS PRN #250 ml Allergies Allergy/AdvReac Type Severity Reaction Status Date / Time No Known Allergies Allergy Verified 08/14/21 11:22 [No Known Allergies*] Review of Systems Constitutional: Constitutional: Reports no additional constitutional complaints Eyes: Eyes: Reports no additional eye complaints ENT: Denies dizziness Cardiovascular: Cardiovascular: Reports no additional cardiovascular complaints Respiratory: Respiratory: Reports as per HPI Gastrointestinal: Gastrointestinal: Reports no additional gastrointestinal complaints Genitourinary: Genitourinary: Reports no additional female genitourinary complaints Musculoskeletal: Musculoskeletal: Reports no additional musculoskeletal complaints Integumentary/Breasts: Skin/Breast: Denies rash Neurologic: Reports system reviewed and no additional complaints, except as documented, Denies dizziness and Denies Sensory deficit (Neuro) Psychiatric: Psychiatric: Denies anxiety [facility] Past Medical History Medical History Hypertension Social History Social History Household Members: Spouse Housing: Apartment Do you presently have visiting nurse or other home services: No Alcohol intake: never Patient Tobacco Use Status: Never used Tobacco Advance Directives: No Advance Directives Information Provided: No Advance Directives Date on File: 03/12/21 service: No Current occupational status: retired Physical Exam Vital Signs: Vital Signs: Last Vital Signs Temp 98.1 F 08/14/21 15:52 Pulse 67 08/14/21 15:52 Resp 21 H 08/14/21 15:52 BP 165/58 H 08/14/21 15:52 Pulse Ox 100 08/14/21 15:52 BMI result Body Mass Index 29.1 Neuro: Sensory Exam: No Sensory deficit (Neuro) Course Reevaluation(s) Reevaluation #1: currently sleeping comfortably Time: 14:28 Reevaluation #2: Patient ambulated and tolerating PO will dc home Time: 16:00 MDM - Dizziness Lab Data Result diagrams: 08/14/21 11:42 08/14/21 11:42 Labs: Lab Results 08/14/21 08/14/21 Range/Units 11:42 11:42 WBC 9.5 (4.8-10.8) X10*3/uL RBC 4.83 (4.20-5.50) X10*6/uL Hgb 14.8 (12.0-16.0) g/dl Hct 44.0 (37.0-47.0) % MCV 91.1 (80.0-98.0) fL MCH 30.6 (27.0-33.0) pg MCHC 33.6 (31.0-35.0) g/dl RDW 12.5 (11.0-16.0) % Plt Count 223 (160-400) X10*3/uL MPV 10.2 (9.4-12.3) fL Immature Gran % (Auto) 0.2 (0.0-0.4) % Neut % (Auto) 72.9 (45-73) % Lymph % (Auto) 19.5 L (20-40) % [place] % (Auto) 5.7 (2-11) % Eos % (Auto) 1.4 (0-4) % Baso % (Auto) 0.3 (0-2) % Lymph # (Auto) 1.8 (1.2-4.9) X10*3/uL [place] # (Auto) 0.5 (0.1-1.2) X10*3/uL Eos # (Auto) 0.1 (0.0-0.4) X10*3/uL Baso # (Auto) 0.0 (0.0-0.2) X10*3/uL Abs Immat Gran (auto) 0.02 (0.00-0.03) X10*3/uL Absolute Neuts (auto) 6.9 (2.0-8.3) x10*3/uL Absolute Nucleated RBC 0.000 (0.0-0.012) X10*3/uL Nucleated RBC % (auto) 0.0 (0.0-0.2) /100WBC Sodium 139 (135-145) mmol/L Potassium 4.1 (3.3-5.1) mmol/L Chloride 107 (96-108) mmol/L Carbon Dioxide 22 (22-29) mmol/L Anion Gap 14 (12-20) BUN 18 H (9-16) mg/dL Creatinine 0.80 (0.5-1.4) mg/dL Estim Creat Clear Calc 48.1 Estimated GFR > 60 Random Glucose 185 H (60-115) mg/dL Calcium 9.8 D (8.4-10.2) mg/dL Discharge Plan Discharge Clinical Impression: Vertigo Patient Disposition: Home, Self-Care Instructions: Vertigo (ED) Prescriptions: No Action carvedilol 25 mg tablet 1 tab PO BID 0RF cetirizine 10 mg tablet 1 tab PO DAILY 0RF sumatriptan succinate 100 mg tablet 0.25 - 0.5 tab PO DAILY PRN (Reason: migraine) 0RF meclizine 12.5 mg tablet 1 tab PO DAILY 0RF aspirin 81 mg tablet,delayed release (DR/EC) 1 tab PO DAILY 0RF lisinopril 5 mg tablet 1 tab PO DAILY 0RF fluticasone propionate 50 mcg/actuation spray,suspension 1 spray intranasal DAILY 0RF rosuvastatin [Crestor] 40 mg tablet 1 tab PO BEDTIME 0RF cholecalciferol (vitamin D3) 50 mcg (2,000 unit) tablet 1 tab PO DAILY 0RF heparin(porcine) in 0.45% NaCl 25,000 unit/250 mL Parenteral Solution 25,000 unit continuous IV infusion .Q0M Qty: 250 0RF heparin (porcine) 5,000 unit/mL Solution 2,600 unit IVPUSH PROTOCOL BOLUS PRN (Reason: 40 Unit/Kg - Heparin Protocol) Qty: 250 0RF Referrals: Physician,Unknown J [Primary Care Provider] - 5 days
[2021-08-14 11:47] LABS: Basophils Percent Auto 0.3 % (0-2); Eosinophils Absolute Auto 0.1 X10*3/uL (0.0-0.4); Eosinophils Percent Auto 1.4 % (0-4); Hemoglobin 14.8 g/dl (12.0-16.0); Imm Gran Abs Auto 0.02 X10*3/uL (0.00-0.03); Imm Gran Pct Auto 0.2 % (0.0-0.4); Lymphocytes Absolute Auto 1.8 X10*3/uL (1.2-4.9); Lymphocytes Percent Auto 19.5 % (20-40); MANUAL DIFF FLAG NO; Mean Corpuscular HGB Conc 33.6 g/dl (31.0-35.0); Mean Corpuscular Hemoglobin 30.6 pg (27.0-33.0); Mean Corpuscular Volume 91.1 fL (80.0-98.0); Mean Platelet Volume 10.2 fL (9.4-12.3); Monocytes Absolute Auto 0.5 X10*3/uL (0.1-1.2); Monocytes Percent Auto 5.7 % (2-11); Neutrophils Absolute Auto 6.9 x10*3/uL (2.0-8.3); Neutrophils Percent Auto 72.9 % (45-73); Platelet Count 223 X10*3/uL (160-400); Red Blood Count 4.83 X10*6/uL (4.20-5.50); Red Cell Distribution Width 12.5 % (11.0-16.0); White Blood Count 9.5 X10*3/uL (4.8-10.8)
[2021-08-14] MEDS: ondansetron HCL 4 MG/2 ML VIAL IVPUSH (11:51)
[2021-08-14] MEDS: LORazepam 2 MG/ML VIAL 1 MG IVPUSH (11:51)
[2021-08-14] MEDS: 0.9 % Sodium Chloride 1,000 ML 125 ML IVCONT (11:52)
[2021-08-14 12:10] LABS: Anion Gap 14 (12-20); Blood Urea Nitrogen 18 mg/dL (9-16); Calcium 9.8 mg/dL (8.4-10.2); Carbon Dioxide 22 mmol/L (22-29); Chloride 107 mmol/L (96-108); Creatinine Clr Calc Pharmacy 48.1; Estimated Glomerular Filt Rate > 60; Glucose Random 185 mg/dL (60-115); Potassium 4.1 mmol/L (3.3-5.1); Sodium 139 mmol/L (135-145)
[2021-08-14 13:37] VITALS: BP 145/55; PULSE 70; RESP 19; O2SAT 100
[2021-08-14] MEDS: Meclizine HCl 25 MG TABLET PO (14:36)
[2021-08-14 15:52] VITALS: BP 165/58; PULSE 67; RESP 21; TEMP 36.7; O2SAT 100
[2021-08-14] MEDS: lisinopriL 10 MG TABLET PO (16:09)
[2021-08-14] MEDS: carvediloL 25 MG TABLET PO (16:09)
== END 2021-08-14 16:38 | disposition home or self-care (01) ==
PROVIDERS: Emergency Provider Emergency Medicine
DX: R42 Dizziness and giddiness (principal); I10 Essential (primary) hypertension
CPT/HCPCS: 36415; 80048; 85025; 96361; 96374; 96375; 99283; 99285; J2060; J2405

== ENCOUNTER 2021-11-22 11:47 | Emergency (ER) | payer MEDICARE, SELFPAY ==
[2021-11-22 11:54] VITALS: BP 146/61; BP 148/88; PULSE 66; PULSE 87; RESP 16; TEMP 36.6; O2SAT 97; BMI 26.4
--- NOTE | 2021-11-22 12:03 | ECG_ITS ---
Test Reason : weakness Blood Pressure : / mmHG Vent. Rate : 061 BPM Atrial Rate : 061 BPM P-R Int : 166 ms QRS Dur : 132 ms QT Int : 454 ms P-R-T Axes : 051 011 092 degrees QTc Int : 457 ms Normal sinus rhythm Left bundle branch block Abnormal ECG When compared with ECG of 11-MAR-2021 11:35, T wave inversion no longer evident in Inferior leads T wave inversion less evident in Anterolateral leads QT has shortened Referred By: Brenda Maddox Electronically Signed By:Julio Oh
--- NOTE | 2021-11-22 12:04 | ED_ITS ---
HPI - Dizziness General Chief Complaint: Dizziness Stated Complaint: dizziness Time Seen by Provider: 11/22/21 12:03 Source: patient and EMS Mode of arrival: EMS Limitations: no limitations History of Present Illness HPI Narrative: 80 yo female with history of vertigo, CAD s/p stent in 2013, NSTEMI who presents to the ER with acute onset of dizziness that started yesterday morning when she went to get up out of bed. She states it feels like the room is spinning every time she tries to stand up. It improves with rest and laying down. She took 4 doses of Meclizine 25 mg yesterday with minimal improvement. The dizziness persisted today when she stands up and changes position. She took Meclizine 50 mg this morning and called her doctor. She has an MRI on 11/26 for further evaluation of her dizziness that has been going on for months. She states her doctor told her she could get an MRI in the ER today if she came in for evaluation. MD elicited complaint: dizziness and vertigo Onset (ago): day(s) (1) Timing: awoke with symptoms and intermittent Severity: moderate Description: room spinning and difficulty walking Context: change in body position History of similar symptoms: Yes Exacerbating factors: movement/ambulation and change in body position Relieving factors: rest and lying down Associated symptoms: denies other symptoms Related Data Home Medications Medication Instructions Recorded Confirmed aspirin 81 mg tablet,delayed 1 tab PO DAILY 03/11/21 11/22/21 release carvedilol 25 mg tablet 1 tab PO BID 03/11/21 11/22/21 cetirizine 10 mg tablet 1 tab PO DAILY 03/11/21 11/22/21 cholecalciferol (vitamin D3) 50 1 tab PO DAILY 03/11/21 11/22/21 mcg (2,000 unit) tablet lisinopril 5 mg tablet 1 tab PO DAILY 03/11/21 11/22/21 rosuvastatin 40 mg tablet (Crestor) 1 tab PO BEDTIME 03/11/21 11/22/21 sumatriptan succinate 100 mg tablet 0.25 - 0.5 tab PO DAILY PRN 03/11/21 11/22/21 migraine clotrimazole-betamethasone 1 1 appl topical DAILY 11/22/21 11/22/21 %-0.05 % topical cream docusate sodium 100 mg capsule 1 cap PO BEDTIME PRN Constipation 11/22/21 0 11/22/21 hydrocortisone 2.5 % topical cream 1 appl topical BID PRN itch 11/22/21 11/22/21 ipratropium bromide 21 mcg (0.03 2 spray intranasal BID 11/22/21 11/22/21 %) nasal spray meclizine 25 mg tablet 1 tab PO DAILY PRN Dizziness 11/22/21 11/22/21 nitroglycerin 0.4 mg sublingual 1 tab sublingual Q5M PRN Chest Pain 11/22/21 11/22/21 tablet Previous Rx's Medication Instructions Recorded lorazepam 0.5 mg tablet (Ativan) 0.5 mg PO DAILY PRN vertigo #7 tabs 11/22/21 Allergies Allergy/AdvReac Type Severity Reaction Status Date / Time No Known Allergies Allergy Verified 08/14/21 11:22 [No Known Allergies*] Review of Systems Review of Systems: Constitutional: No Fever, No Chills ENT/Mouth: No sore throat, No Rhinorrhea, No Swallowing Difficulty Eyes: No Eye Pain, No Swelling, No Redness Cardiovascular: No Chest Pain, No SOB, No Orthopnea, No Edema Respiratory: No Cough, No Sputum, No Wheezing, No dyspnea Gastrointestinal: No Nausea, No Vomiting, No Diarrhea, No abdominal Pain, No Hematochezia, No Melena Genitourinary: No Dysuria, No Urinary Frequency, No Hematuria Musculoskeletal: No joint pain, No Myalgias Skin: No Skin Lesions, No rash Neuro: No Weakness, No Numbness, + Dizziness, No Headache Psych: No Anxiety/Panic, No Depression Heme/Lymph: No Bruising, No Lymphadenopathy Endocrine: No Polyuria, No Polydipsia REPLACED BY [facility] Past Medical History Medical History Hypertension Social History Social History Household Members: Spouse Housing: Apartment Do you presently have visiting nurse or other home services: No Alcohol intake: never Patient Tobacco Use Status: Never used Tobacco Use of substances other than those prescribed or required for medical reasons: No Advance Directives: Yes Advance Directives on File: Yes Advance Directives Date on File: 03/12/21 service: No Current occupational status: retired Physical Exam Vital Signs: Vital Signs: Last Vital Signs Temp 97.8 F 11/22/21 11:54 Pulse 64 11/22/21 13:05 Resp 16 11/22/21 11:54 BP 153/66 H 11/22/21 13:05 Pulse Ox 97 11/22/21 11:54 O2 Del Method 11/22/21 11:54 BMI result Body Mass Index 26.4 Appearance: Alert. Oriented X3. No acute distress. Eyes: Pupils equal, round and reactive to light. EOMI, No nystagmus ENT: Pharynx normal. Normal TMs bilaterally. [place], hearing aids in place Neck: Normal inspection. Neck supple. CVS: Normal heart rate and rhythm. Pulses normal. Respiratory: No respiratory distress. Breath sounds normal. Abdomen: Soft and nontender. +BS x4 Skin: Skin warm and dry. Normal skin color. Normal skin turgor. No rashes. Extremities: No lower extremity edema. Neuro: Oriented X 3. No motor deficit. No sensory deficit. Normal [id number] and [id number] bilaterally. Cranial nerves 2-12 intact. Steady gait Course Course Course Narrative: 80-year-old female with a history of vertigo presents to the ER with dizziness that started yesterday. She has no other neurologic symptoms. This feels similar prior vertigo. She takes meclizine minimal relief. She has an MRI planned on Thursday for further evaluation of her dizziness. She has no vomiting. No nystagmus. No focal deficits on examination. Her dizziness is positional only and improved with rest. Doubt posterior stroke. Will get lab workup and orthostatic vital signs for further evaluation. Given she just took meclizine this morning will give her a very small dose of Ativan to see if this helps improve her dizziness. Reevaluation(s) Reevaluation #1: Labs unremarkable. Orthostatics were negative. Patient reports extreme improvement with Ativan and would like a prescription to go home with. We discussed that this is a controlled substance and will need to be continued by her provider. Will give a short course of Ativan for recurrent dizziness at home but she will follow-up with her doctor for further management. Stable for discharge home with plan to get her MRI on Thursday. MDM - Dizziness Lab Data Result diagrams: 11/22/21 12:58 11/22/21 12:58 Labs: Lab Results 11/22/21 11/22/21 11/22/21 Range/Units 12:58 12:58 12:58 WBC 6.9 (4.8-10.8) X10*3/uL RBC 4.58 (4.20-5.50) X10*6/uL Hgb 14.3 (12.0-16.0) g/dl Hct 42.3 (37.0-47.0) % MCV 92.4 (80.0-98.0) fL MCH 31.2 (27.0-33.0) pg MCHC 33.8 (31.0-35.0) g/dl RDW 12.6 (11.0-16.0) % Plt Count 245 (160-400) X10*3/uL MPV 9.7 (9.4-12.3) fL Immature Gran % (Auto) 0.4 (0.0-0.4) % Neut % (Auto) 60.9 (45-73) % Lymph % (Auto) 29.8 (20-40) % [place] % (Auto) 7.2 (2-11) % Eos % (Auto) 1.4 (0-4) % Baso % (Auto) 0.3 (0-2) % Lymph # (Auto) 2.1 (1.2-4.9) X10*3/uL [place] # (Auto) 0.5 (0.1-1.2) X10*3/uL Eos # (Auto) 0.1 (0.0-0.4) X10*3/uL Baso # (Auto) 0.0 (0.0-0.2) X10*3/uL Abs Immat Gran (auto) 0.03 (0.00-0.03) X10*3/uL Absolute Neuts (auto) 4.2 (2.0-8.3) x10*3/uL Absolute Nucleated RBC 0.000 (0.0-0.012) X10*3/uL Nucleated RBC % (auto) 0.0 (0.0-0.2) /100WBC PT 11.7 (10.0-13.1) SEC INR 1.0 (0.9-1.1) APTT 45.4 H (24.1-38.0) SEC Sodium 139 (135-145) mmol/L Potassium 4.3 (3.3-5.1) mmol/L Chloride 107 (96-108) mmol/L Carbon Dioxide 26 (22-29) mmol/L Anion Gap 10 L (12-20) BUN 14 (9-16) mg/dL Creatinine 0.71 (0.5-1.4) mg/dL Estim Creat Clear Calc 51.6 Estimated GFR > 60 Random Glucose 128 H (60-115) mg/dL Calcium 9.3 (8.4-10.2) mg/dL Magnesium 1.9 (1.6-2.6) mg/dL Total Bilirubin 0.5 (0.0-1.0) mg/dL Direct Bilirubin 0.2 (0.0-0.5) mg/dL AST 17 (5-31) U/L ALT 26 (0-31) U/L Alkaline Phosphatase 84 (39-117) U/L Troponin I High Sens (<3.5-17.0) ng/L Total Protein 7.2 D (6.5-8.0) g/dL Albumin 3.9 (3.5-5.0) g/dL 11/22/21 Range/Units 12:58 WBC (4.8-10.8) X10*3/uL RBC (4.20-5.50) X10*6/uL Hgb (12.0-16.0) g/dl Hct (37.0-47.0) % MCV (80.0-98.0) fL MCH (27.0-33.0) pg MCHC (31.0-35.0) g/dl RDW (11.0-16.0) % Plt Count (160-400) X10*3/uL MPV (9.4-12.3) fL Immature Gran % (Auto) (0.0-0.4) % Neut % (Auto) (45-73) % Lymph % (Auto) (20-40) % [place] % (Auto) (2-11) % Eos % (Auto) (0-4) % Baso % (Auto) (0-2) % Lymph # (Auto) (1.2-4.9) X10*3/uL [place] # (Auto) (0.1-1.2) X10*3/uL Eos # (Auto) (0.0-0.4) X10*3/uL Baso # (Auto) (0.0-0.2) X10*3/uL Abs Immat Gran (auto) (0.00-0.03) X10*3/uL Absolute Neuts (auto) (2.0-8.3) x10*3/uL Absolute Nucleated RBC (0.0-0.012) X10*3/uL Nucleated RBC % (auto) (0.0-0.2) /100WBC PT (10.0-13.1) SEC INR (0.9-1.1) APTT (24.1-38.0) SEC Sodium (135-145) mmol/L Potassium (3.3-5.1) mmol/L Chloride (96-108) mmol/L Carbon Dioxide (22-29) mmol/L Anion Gap (12-20) BUN (9-16) mg/dL Creatinine (0.5-1.4) mg/dL Estim Creat Clear Calc Estimated GFR Random Glucose (60-115) mg/dL Calcium (8.4-10.2) mg/dL Magnesium (1.6-2.6) mg/dL Total Bilirubin (0.0-1.0) mg/dL Direct Bilirubin (0.0-0.5) mg/dL AST (5-31) U/L ALT (0-31) U/L Alkaline Phosphatase (39-117) U/L Troponin I High Sens 4.5 (<3.5-17.0) ng/L Total Protein (6.5-8.0) g/dL Albumin (3.5-5.0) g/dL Discharge Plan Discharge Clinical Impression: Vertigo Patient Disposition: Home, Self-Care Instructions: Vertigo (ED) Additional Instructions: Take the prescribe medication as needed for vertigo. Follow up with your planned MRI next week and your PCP. If you develop new or worsening symptoms call 911 or come back to the ER for further evaluation. Prescriptions: New lorazepam [Ativan] 0.5 mg tablet 0.5 mg PO DAILY PRN (Reason: vertigo) Qty: 7 0RF No Action carvedilol 25 mg tablet 1 tab PO BID cetirizine 10 mg tablet 1 tab PO DAILY sumatriptan succinate 100 mg tablet 0.25 - 0.5 tab PO DAILY PRN (Reason: migraine) aspirin 81 mg tablet,delayed release (DR/EC) 1 tab PO DAILY lisinopril 5 mg tablet 1 tab PO DAILY rosuvastatin [Crestor] 40 mg tablet 1 tab PO BEDTIME cholecalciferol (vitamin D3) 50 mcg (2,000 unit) tablet 1 tab PO DAILY meclizine 25 mg tablet 1 tab PO DAILY PRN (Reason: Dizziness) clotrimazole-betamethasone 1-0.05 % cream 1 appl topical DAILY nitroglycerin 0.4 mg tablet, sublingual 1 tab sublingual Q5M PRN (Reason: Chest Pain) docusate sodium 100 mg capsule 1 cap PO BEDTIME PRN (Reason: Constipation) hydrocortisone 2.5 % cream 1 appl topical BID PRN (Reason: itch) ipratropium bromide 21 mcg (0.03 %) spray,non-aerosol 2 spray intranasal BID Interventions: ED Discharge Assessment Last Done: 11/22/21 15:28 Discharge Date/Time: 11/22/21 15:32 Print Language: Hebrew
[2021-11-22] MEDS: LORazepam 0.5 MG TABLET PO (12:51)
[2021-11-22 13:01] VITALS: BP 140/63; PULSE 59
[2021-11-22 13:02] VITALS: BP 144/65; PULSE 59
[2021-11-22 13:05] VITALS: BP 153/66; PULSE 64
[2021-11-22 13:05] LABS: MANUAL DIFF FLAG NO
[2021-11-22 13:07] LABS: Basophils Percent Auto 0.3 % (0-2); Eosinophils Absolute Auto 0.1 X10*3/uL (0.0-0.4); Eosinophils Percent Auto 1.4 % (0-4); Hematocrit 42.3 % (37.0-47.0); Hemoglobin 14.3 g/dl (12.0-16.0); Imm Gran Abs Auto 0.03 X10*3/uL (0.00-0.03); Imm Gran Pct Auto 0.4 % (0.0-0.4); Lymphocytes Absolute Auto 2.1 X10*3/uL (1.2-4.9); Lymphocytes Percent Auto 29.8 % (20-40); Mean Corpuscular HGB Conc 33.8 g/dl (31.0-35.0); Mean Corpuscular Hemoglobin 31.2 pg (27.0-33.0); Mean Corpuscular Volume 92.4 fL (80.0-98.0); Mean Platelet Volume 9.7 fL (9.4-12.3); Monocytes Absolute Auto 0.5 X10*3/uL (0.1-1.2); Monocytes Percent Auto 7.2 % (2-11); Neutrophils Absolute Auto 4.2 x10*3/uL (2.0-8.3); Neutrophils Percent Auto 60.9 % (45-73); Platelet Count 245 X10*3/uL (160-400); Red Blood Count 4.58 X10*6/uL (4.20-5.50); Red Cell Distribution Width 12.6 % (11.0-16.0); White Blood Count 6.9 X10*3/uL (4.8-10.8)
[2021-11-22 13:12] LABS: Prothrombin Time 11.7 SEC (10.0-13.1)
[2021-11-22 13:15] LABS: Partial Thromboplastin Time 45.4 SEC (24.1-38.0)
[2021-11-22 13:31] LABS: Troponin-I High Sensitivity 4.5 ng/L (<3.5-17.0)
[2021-11-22 13:54] LABS: Alanine Aminotransferase 26 U/L (0-31); Albumin Level 3.9 g/dL (3.5-5.0); Alkaline Phosphatase 84 U/L (39-117); Anion Gap 10 (12-20); Aspartate Amino Transferase 17 U/L (5-31); Bilirubin Direct 0.2 mg/dL (0.0-0.5); Bilirubin Total 0.5 mg/dL (0.0-1.0); Blood Urea Nitrogen 14 mg/dL (9-16); Calcium 9.3 mg/dL (8.4-10.2); Carbon Dioxide 26 mmol/L (22-29); Chloride 107 mmol/L (96-108); Creatinine Clr Calc Pharmacy 51.6; Estimated Glomerular Filt Rate > 60; Glucose Random 128 mg/dL (60-115); Magnesium 1.9 mg/dL (1.6-2.6); Potassium 4.3 mmol/L (3.3-5.1); Sodium 139 mmol/L (135-145); Total Protein 7.2 g/dL (6.5-8.0)
--- NOTE | 2021-11-22 14:53 | PHA.MEDREC ---
Pharmacy Consult ? Medication Reconciliation Pharmacy has completed the medication reconciliation. [employer] used, pt admittedly very non-adherent. Unsure of which medications she takes at home exactly except for meclizine and her nasal spray. Agreable to most things listed. Used recent claim history.
== END 2021-11-22 15:32 | disposition home or self-care (01) ==
PROVIDERS: Physician Assistant; Emergency Provider Emergency Medicine; PCP Family Medicine
DX: R42 Dizziness and giddiness (principal); I10 Essential (primary) hypertension; Z79.82 Long term (current) use of aspirin; Z79.899 Other long term (current) drug therapy
CPT/HCPCS: 36415; 80048; 80076; 83735; 84484; 85025; 85610; 85730; 93005; 99284

== ENCOUNTER 2021-12-21 09:32 | Emergency (ER) | payer MEDICARE, SELFPAY ==
--- NOTE | ~2021-12-21 | CT_ITS ---
EXAM: Noncontrast CT scan of the head and cervical spine. INDICATION: Fall COMPARISON: Head CT August 05, [address] cervical spine February 03, 2014 TECHNIQUE: Axial slices were obtained from skull base to vertex and displayed. This was followed by helical, multislice, multidetector axial images from the occiput to the upper thorax. Coronal and sagittal reformats of the cervical spine in addition to coronal reformats of the head were obtained at the technologist workstation. DLP: 927 mGy-cm FINDINGS: HEAD: There is no evidence of acute intracranial hemorrhage or territorial infarction. No abnormal mass effect or midline shift is appreciated. Shah-white differentiation is well preserved. No extra-axial fluid collections. The ventricular system and cortical sulci are prominent, consistent with age-appropriate volume loss. Mild cerebellar volume loss is also appreciated. There are areas of low density in the periventricular and subcortical white matter, most consistent with sequelae of microvascular ischemic change. Hyperostosis frontalis. No acute osseous fracture. There is mild to moderate calcifications of the cavernous internal carotid arteries. The visualized paranasal sinuses and mastoid air cells are well aerated. SPINE: The cervical spine is visualized in its entirety. There is straightening of the normal cervical lordosis. Alignment is otherwise unremarkable. Normal C1/2 articulation. Cervical vertebral body heights are maintained. There is mild narrowing of the C4/5 and C6/7 disc space heights with moderate narrowing of the C5/6 disc space height. Small to moderate-sized osteophytes are present throughout the mid and lower cervical spine. Mild to moderate bilateral facet hypertrophy diffusely. Visualized lung apices are adequately aerated. CT/CT cervical spine wo con IMPRESSION: 1. No acute intracranial pathology. 2. No fractures or dislocations of the cervical spine. This CT examination was performed using dose optimization techniques as appropriate, variously including the following: *Automated exposure control *Adjustment of mA and/or kV according to patient size (this includes techniques or standardized protocols for targeted exams where dose is matched to indication/reason for exam; i.e. extremities or head) *Use of iterative reconstruction technique
--- NOTE | ~2021-12-21 | XR_ITS ---
EXAMINATION: XR SHOULDER, LEFT CLINICAL INFORMATION: Fall with injury COMPARISON: None TECHNIQUE: AP external rotation, Grashey, scapular Y, and axillary views of the left shoulder. FINDINGS: The bones and soft tissues are normal. No fracture. Glenohumeral and acromioclavicular alignment is anatomic with normal joint space. No abnormal soft tissue calcifications. XR/XR shoulder LT min 2V IMPRESSION: Normal left shoulder.
[2021-12-21 09:46] VITALS: BP 120/78; BP 162/83; PULSE 73; RESP 12; TEMP 36.1; O2SAT 98; O2SAT 99; BMI 22.7
[2021-12-21 09:59] VITALS: BP 162/83; PULSE 67; RESP 12; TEMP 36.1; O2SAT 97
[2021-12-21 09:59] LABS: Glucose, Whole Blood 140 mg/dL (60-115)
--- NOTE | 2021-12-21 10:05 | ECG_ITS ---
Test Reason : dizziness Blood Pressure : / mmHG Vent. Rate : 072 BPM Atrial Rate : 072 BPM P-R Int : 172 ms QRS Dur : 130 ms QT Int : 436 ms P-R-T Axes : 065 013 091 degrees QTc Int : 477 ms Normal sinus rhythm Left bundle branch block Abnormal ECG When compared with ECG of 22-NOV-2021 12:01, No significant change was found Referred By: Mario Bourgeois Electronically Signed By:MARK JUAREZ MD
--- NOTE | 2021-12-21 11:05 | ED.EXTPRO ---
HPI - Extremity Problem General Chief complaint: Extremity Injury, Upper Stated complaint: Fall Time Seen by Provider: 12/21/21 09:54 History of Present Illness HPI Narrative: Patient with history of vertigo was watching TV and stood up to walk to her bed and felt typical vertigo symptoms of room spinning as she has felt before, she fell forward with the dizziness and hit her left shoulder straining it against the couch, she did not hit her head, she did not lose consciousness she remembers everything, she does complain of some left-sided neck and trapezius pain as well as left shoulder pain No other complaints There was no chest pain no headache no shortness of breath no fainting or feeling faint Related Data Home Medications Medication Instructions Recorded Confirmed aspirin 81 mg tablet,delayed 1 tab PO DAILY 03/11/21 11/22/21 release carvedilol 25 mg tablet 1 tab PO BID 03/11/21 11/22/21 cetirizine 10 mg tablet 1 tab PO DAILY 03/11/21 11/22/21 cholecalciferol (vitamin D3) 50 1 tab PO DAILY 03/11/21 11/22/21 mcg (2,000 unit) tablet lisinopril 5 mg tablet 1 tab PO DAILY 03/11/21 11/22/21 rosuvastatin 40 mg tablet (Crestor) 1 tab PO BEDTIME 03/11/21 11/22/21 sumatriptan succinate 100 mg tablet 0.25 - 0.5 tab PO DAILY PRN 03/11/21 11/22/21 migraine clotrimazole-betamethasone 1 1 appl topical DAILY 11/22/21 11/22/21 %-0.05 % topical cream docusate sodium 100 mg capsule 1 cap PO BEDTIME PRN Constipation 11/22/21 11/22/21 hydrocortisone 2.5 % topical cream 1 appl topical BID PRN itch 11/22/21 11/22/21 ipratropium bromide 21 mcg (0.03 2 spray intranasal BID 11/22/21 11/22/21 %) nasal spray meclizine 25 mg tablet 1 tab PO DAILY PRN Dizziness 11/22/21 11/22/21 nitroglycerin 0.4 mg sublingual 1 tab sublingual Q5M PRN Chest Pain 11/22/21 11/22/21 tablet Previous Rx's Medication Instructions Recorded lorazepam 0.5 mg tablet (Ativan) 0.5 mg PO DAILY PRN vertigo #7 tabs 11/22/21 Allergies Allergy/AdvReac Type Severity Reaction Status Date / Time No Known Allergies Allergy Verified 08/14/21 11:22 [No Known Allergies*] Review of Systems Review of Systems: Positive for left shoulder and left-sided neck pain after a fall caused by vertigo room spinning dizziness Negatives are no fever no chills no headache no loss of consciousness no confusion no numbness no weakness no tingling no chest pain no shortness of breath no palpitations no abdominal pain no nausea or vomiting no muscle weakness no loss of sensation no difficulty forming words Yes all other systems are reviewed and are negative PMFSH Past Medical History Source: nursing notes reviewed Medical History Hypertension Social History Social History Household Members: Spouse Housing: Apartment Do you presently have visiting nurse or other home services: No Alcohol intake: never Patient Tobacco Use Status: Never used Tobacco Smoked in Last 30 Days: No Use of substances other than those prescribed or required for medical reasons: No Advance Directives: Yes Advance Directives on File: Yes Advance Directives Date on File: 03/12/21 service: No Current occupational status: retired Physical Exam Vital Signs: Vital Signs: Last Vital Signs Temp 97 F 12/21/21 09:59 Pulse 76 12/21/21 12:13 Resp 12 12/21/21 12:13 BP 122/57 L 12/21/21 12:13 Pulse Ox 98 12/21/21 12:13 O2 Del Method 12/21/21 09:59 BMI result Body Mass Index 22.7 General appearance no acute distress, comfortable Head is normocephalic atraumatic Pupils equal round reactive to light extraocular motions are intact The neck had left lateral tenderness left trapezius tenderness no midline tenderness The chest was clear to auscultation bilateral no chest wall tenderness no rib tenderness The abdomen soft nontender Heart no murmur Left arm exam there is tenderness around the left shoulder and the left trapezius but no deformities, range of motion is limited on extension abduction and external rotation but only mildly, neurovascular intact distal, skin is intact and normal in appearance Other extremities full range of motion Neuro interaction both comprehension and expression are normal, motor is 5/5 x4, sensation is intact and symmetrical in all extremities, cranial nerves 2-12 intact as tested, cerebellar exam was normal Course Course Course Narrative: Left shoulder x-ray was normal, CT of head and neck were normal without bleed or fracture Patient remains stable relaxed and comfortable throughout visit and was discharged home with diagnosis of vertigo and left shoulder strain MDM - Extremity (Nontraumatic) Lab Data Attestation: I reviewed the patient's lab results. Result diagrams: 12/21/21 11:33 12/21/21 11:33 Labs: Lab Results 12/21/21 12/21/21 12/21/21 Range/Units 09:49 11:33 11:33 WBC 9.0 (4.8-10.8) X10*3/uL RBC 4.61 (4.20-5.50) X10*6/uL Hgb 14.5 (12.0-16.0) g/dl Hct 42.6 (37.0-47.0) % MCV 92.4 (80.0-98.0) fL MCH 31.5 (27.0-33.0) pg MCHC 34.0 (31.0-35.0) g/dl RDW 12.5 (11.0-16.0) % Plt Count 218 (160-400) X10*3/uL MPV 9.8 (9.4-12.3) fL Immature Gran % (Auto) 0.3 (0.0-0.4) % Neut % (Auto) 72.4 (45-73) % Lymph % (Auto) 20.3 (20-40) % [place] % (Auto) 5.7 (2-11) % Eos % (Auto) 1.0 (0-4) % Baso % (Auto) 0.3 (0-2) % Lymph # (Auto) 1.8 (1.2-4.9) X10*3/uL [place] # (Auto) 0.5 (0.1-1.2) X10*3/uL Eos # (Auto) 0.1 (0.0-0.4) X10*3/uL Baso # (Auto) 0.0 (0.0-0.2) X10*3/uL Abs Immat Gran (auto) 0.03 (0.00-0.03) X10*3/uL Absolute Neuts (auto) 6.5 (2.0-8.3) x10*3/uL Absolute Nucleated RBC 0.000 (0.0-0.012) X10*3/uL Nucleated RBC % (auto) 0.0 (0.0-0.2) /100WBC Sodium 142 (135-145) mmol/L Potassium 4.3 (3.3-5.1) mmol/L Chloride 105 (96-108) mmol/L Carbon Dioxide 28 (22-29) mmol/L Anion Gap 13 (12-20) BUN 15 (9-16) mg/dL Creatinine 0.77 (0.5-1.4) mg/dL Estim Creat Clear Calc 43.9 Estimated GFR > 60 POC Glucose 140 H (60-115) mg/dL Random Glucose 138 H (60-115) mg/dL Calcium 9.2 (8.4-10.2) mg/dL Discharge Plan Discharge Clinical Impression: Vertigo, Fall, Left shoulder strain Patient Disposition: Home, Self-Care Additional Instructions: Use your meclizine for dizziness When you stand up stand up slowly and make sure your balance is good before you start walking, use her walker Follow with orthopedist if left shoulder pain continues Left shoulder x-ray did not show any broken bone, CT scan did not show any damage to the bones in her neck Return to ER any time any worse condition or any concerns Prescriptions: No Action carvedilol 25 mg tablet 1 tab PO BID cetirizine 10 mg tablet 1 tab PO DAILY sumatriptan succinate 100 mg tablet 0.25 - 0.5 tab PO DAILY PRN (Reason: migraine) aspirin 81 mg tablet,delayed release (DR/EC) 1 tab PO DAILY lisinopril 5 mg tablet 1 tab PO DAILY rosuvastatin [Crestor] 40 mg tablet 1 tab PO BEDTIME cholecalciferol (vitamin D3) 50 mcg (2,000 unit) tablet 1 tab PO DAILY meclizine 25 mg tablet 1 tab PO DAILY PRN (Reason: Dizziness) clotrimazole-betamethasone 1-0.05 % cream 1 appl topical DAILY nitroglycerin 0.4 mg tablet, sublingual 1 tab sublingual Q5M PRN (Reason: Chest Pain) docusate sodium 100 mg capsule 1 cap PO BEDTIME PRN (Reason: Constipation) hydrocortisone 2.5 % cream 1 appl topical BID PRN (Reason: itch) ipratropium bromide 21 mcg (0.03 %) spray,non-aerosol 2 spray intranasal BID lorazepam [Ativan] 0.5 mg tablet 0.5 mg PO DAILY PRN (Reason: vertigo) Qty: 7 0RF Interventions: ED Discharge Assessment Last Done: 12/21/21 14:30 Discharge Date/Time: 12/21/21 14:30
[2021-12-21 11:38] LABS: MANUAL DIFF FLAG NO
[2021-12-21 11:40] LABS: Basophils Percent Auto 0.3 % (0-2); Eosinophils Absolute Auto 0.1 X10*3/uL (0.0-0.4); Hematocrit 42.6 % (37.0-47.0); Hemoglobin 14.5 g/dl (12.0-16.0); Imm Gran Abs Auto 0.03 X10*3/uL (0.00-0.03); Imm Gran Pct Auto 0.3 % (0.0-0.4); Lymphocytes Absolute Auto 1.8 X10*3/uL (1.2-4.9); Lymphocytes Percent Auto 20.3 % (20-40); Mean Corpuscular Hemoglobin 31.5 pg (27.0-33.0); Mean Corpuscular Volume 92.4 fL (80.0-98.0); Mean Platelet Volume 9.8 fL (9.4-12.3); Monocytes Absolute Auto 0.5 X10*3/uL (0.1-1.2); Monocytes Percent Auto 5.7 % (2-11); Neutrophils Absolute Auto 6.5 x10*3/uL (2.0-8.3); Neutrophils Percent Auto 72.4 % (45-73); Platelet Count 218 X10*3/uL (160-400); Red Blood Count 4.61 X10*6/uL (4.20-5.50); Red Cell Distribution Width 12.5 % (11.0-16.0)
[2021-12-21 11:56] LABS: Anion Gap 13 (12-20); Blood Urea Nitrogen 15 mg/dL (9-16); Calcium 9.2 mg/dL (8.4-10.2); Carbon Dioxide 28 mmol/L (22-29); Chloride 105 mmol/L (96-108); Creatinine Clr Calc Pharmacy 43.9; Estimated Glomerular Filt Rate > 60; Glucose Random 138 mg/dL (60-115); Potassium 4.3 mmol/L (3.3-5.1); Sodium 142 mmol/L (135-145)
[2021-12-21 12:13] VITALS: BP 122/57; PULSE 76; RESP 12; O2SAT 98
== END 2021-12-21 14:30 | disposition home or self-care (01) ==
PROVIDERS: Physician Assistant Medical; Emergency Provider Emergency Medicine; PCP Family Medicine
DX: R42 Dizziness and giddiness (principal); S46.912A Strain of unspecified muscle, fascia and tendon at shoulder and upper arm level, left arm, initial encounter; W17.89XA Other fall from one level to another, initial encounter; Y93.9 Activity, unspecified; Y92.9 Unspecified place or not applicable; Y99.9 Unspecified external cause status
CPT/HCPCS: 36415; 70450; 72125; 73030; 80048; 82947; 85025; 93005; 99284

== ENCOUNTER 2022-06-19 12:36 | Emergency (ER) | payer MEDICARE, SELFPAY ==
--- NOTE | ~2022-06-19 | CT_ITS ---
EXAMINATION: CT HEAD WITHOUT CONTRAST CLINICAL INFORMATION: Headache COMPARISON: CT head 12/21/2021 TECHNIQUE: Contiguous axial imaging was performed from the skull base to vertex without intravenous administration of contrast. Coronal and sagittal reformatted images are performed at the CT scanner. [This CT examination was performed using dose optimization techniques as appropriate, variously including the following: *Automated exposure control *Adjustment of mA and/or kV according to patient size (this includes techniques or standardized protocols for targeted exams where dose is matched to indication/reason for exam; i.e. extremities or head) *Use of iterative reconstruction technique] DLP: 630 mGy-cm. FINDINGS: There is no evidence of acute intracranial hemorrhage or territorial infarction. No abnormal mass-effect or midline shift is seen. Shah to white matter differentiation is well preserved. No extra-axial fluid collections are identified. There is generalized global volume loss. There is mild prominence of the ventricles and the sulci . There is mild hypodensity of the periventricular white matter due to chronic small vessel ischemic disease. There are vascular calcifications of the internal carotid arteries bilaterally. There is no osseous abnormality. The mastoid air cells and visualized portions of the paranasal sinuses are well-aerated. CT/CT head/brain wo IV con IMPRESSION: No acute intracranial pathology.
--- NOTE | 2022-06-19 12:41 | ECG_ITS ---
Test Reason : CP/DIZZINESS Blood Pressure : / mmHG Vent. Rate : 064 BPM Atrial Rate : 064 BPM P-R Int : 164 ms QRS Dur : 118 ms QT Int : 468 ms P-R-T Axes : 055 012 078 degrees QTc Int : 482 ms Normal sinus rhythm Possible Anterior infarct , age undetermined Abnormal ECG When compared with ECG of 21-DEC-2021 09:42, Left bundle branch block is no longer Present Borderline criteria for Anterior infarct are now Present Referred By: Generic ED Physician Electronically Signed By:Julio Oh
[2022-06-19 12:49] VITALS: BP 117/66; PULSE 82; RESP 18; TEMP 36.6; O2SAT 99; BMI 26.4
[2022-06-19 13:23] VITALS: BP 106/60; PULSE 70; RESP 16; O2SAT 99
--- NOTE | 2022-06-19 13:54 | ED.CHESTPAIN ---
HPI - Chest Pain General Chief Complaint: Chest Pain <CHANDANA Kearney - Last Filed: 06/19/22 16:09> Stated Complaint: CP AND SHAIKH FOR DAYS PT ?'S NEW MED PER EMS <CHANDANA Kearney - Last Filed: 06/19/22 16:09> Time Seen by Provider: 06/19/22 13:49 <CHANDANA Kearney Last Filed: 06/19/22 16:09> Source: patient and EMS <CHANDANA Kearney Last Filed: 06/19/22 16:09> Mode of arrival: EMS <CHANDANA Kearney Last Filed: 06/19/22 16:09> Limitations: no limitations <CHANDANA Kearney Last Filed: 06/19/22 16:09> History of Present Illness HPI narrative: Patient is an 81 year old assigned female at with a history of NSTEMI and BPPV presenting to the emergency department today with dizziness and a headache. Patient states that she has been having issues with dizziness, headache, and chest pain over the last 4 days. Patient states that the chest pain has resolved but she still has a headache and dizziness. Patient states that she is prescribed meclazine but it doesn't seem to help much. Patient denies any lightheadedness, abdominal pain, nausea, vomiting, fever, chills, blurry vision, double vision, loss of vision, chest pain, difficulty breathing, shortness of breath, back pain, night sweats, pain with urination, increased urinary frequency, increased urinary urgency, blood in her urine or stool, syncope or a near syncopal episode, recent trauma or falls, bowel incontinence, bladder incontinence, bowel retention, bladder retention, or any other complaints at this time. <CHANDANA Kearney - Last Filed: 06/19/22 16:09> Treatment prior to arrival: none <CHANDANA Kearney Last Filed: 06/19/22 16:09> Related Data Home Medications: Home Medications Medication Instructions Recorded Confirmed aspirin 81 mg tablet,delayed 1 tab PO DAILY 03/11/21 11/22/21 release carvedilol 25 mg tablet 1 tab PO BID 03/11/21 11/22/21 cetirizine 10 mg tablet 1 tab PO DAILY 03/11/21 11/22/21 cholecalciferol (vitamin D3) 50 1 tab PO DAILY 03/11/21 11/22/21 mcg (2,000 unit) tablet lisinopril 5 mg tablet 1 tab PO DAILY 03/11/21 11/22/21 rosuvastatin 40 mg tablet (Crestor) 1 tab PO BEDTIME 03/11/21 11/22/21 sumatriptan succinate 100 mg tablet 0.25 - 0.5 tab PO DAILY PRN 03/11/21 11/22/21 migraine clotrimazole-betamethasone 1 1 appl topical DAILY 11/22/21 11/22/21 %-0.05 % topical cream docusate sodium 100 mg capsule 1 cap PO BEDTIME PRN Constipation 11/22/21 11/22/21 hydrocortisone 2.5 % topical cream 1 appl topical BID PRN itch 11/22/21 11/22/21 ipratropium bromide 21 mcg (0.03 2 spray intranasal BID 11/22/21 11/22/21 %) nasal spray meclizine 25 mg tablet 1 tab PO DAILY PRN Dizziness 11/22/21 11/22/21 nitroglycerin 0.4 mg sublingual 1 tab sublingual Q5M PRN Chest Pain 11/22/21 11/22/21 tablet Previous Rx's Medication Instructions Recorded lorazepam 0.5 mg tablet (Ativan) 0.5 mg PO DAILY PRN vertigo #7 tabs 11/22/21 <CHANDANA Kearney - Last Filed: 06/19/22 16:09> Allergies/Adverse Reactions: Allergies Allergy/AdvReac Type Severity Reaction Status Date / Time No Known Allergies Allergy Verified 08/14/21 11:22 [No Known Allergies*] <CHANDANA Kearney - Last Filed: 06/19/22 16:09> Review of Systems Constitutional: Constitutional: Reports no additional constitutional complaints, Denies chills, Denies fever(s), Reports headache(s) and Denies night sweats <CHANDANA Kearney - Last Filed: 06/19/22 16:09> Eyes: Eyes: Reports no additional eye complaints, Denies blurry vision, Denies change in vision, Denies diplopia, Denies eye discharge, Denies loss of vision and Denies eye pain <CHANDANA Kearney - Last Filed: 06/19/22 16:09> ENT: Reports dizziness and Reports headache(s) <CHANDANA Kearney - Last Filed: 06/19/22 16:09> Cardiovascular: Cardiovascular: Reports no additional cardiovascular complaints, Denies chest pain, Denies lightheadedness, Denies Loss of Consciousness and Denies dyspnea <CHANDANA Kearney - Last Filed: 06/19/22 16:09> Respiratory: Respiratory: Reports no additional respiratory complaints and Denies dyspnea <CHANDANA Kearney - Last Filed: 06/19/22 16:09> Gastrointestinal: Gastrointestinal: Reports no additional gastrointestinal complaints, Denies abdominal pain, Denies melena, Denies hematochezia, Denies change in bowel habits and Denies change in stool character <CHANDANA Kearney Last Filed: 06/19/22 16:09> Genitourinary: Genitourinary: Denies hematuria, Denies urinary frequency, Denies dysuria, Denies urinary incontinence, Denies urinary hesitancy and Denies urinary urgency <CHANDANA Kearney - Last Filed: 06/19/22 16:09> Musculoskeletal: Musculoskeletal: Reports no additional musculoskeletal complaints, Denies numbness and Denies tingling <CHANDANA Kearney - Last Filed: 06/19/22 16:09> Neurologic: Reports dizziness, Reports headache(s), Denies loss of vision, Denies numbness and Denies tingling <CHANDANA Kearney Last Filed: 06/19/22 16:09> Psychiatric: Psychiatric: Reports no additional psychiatric complaints <CHANDANA Kearney Last Filed: 06/19/22 16:09> Endocrine: Endocrine: Reports no additional endocrine complaints <CHANDANA Kearney Last Filed: 06/19/22 16:09> Hematologic/Lymphatic: Hematologic/Lymphatic: Reports no additional hematologic/lymphatic complaints <CHANDANA Kearney Last Filed: 06/19/22 16:09> Allergic/Immunologic: Allergic/Immunologic: Reports no additional allergic/immunologic complaints <CHANDANA Kearney Last Filed: 06/19/22 16:09> PMFSH Past Medical History Attestation statement: The following information was validated with the patient. <CHANDANA Kearney - Last Filed: 06/19/22 16:09> Source: old records reviewed and nursing notes reviewed <CHANDANA Kearney - Last Filed: 06/19/22 16:09> Medical History: Medical History Hypertension <CHANDANA Kearney - Last Filed: 06/19/22 16:09> Social History Social History: Social History Household Members: Spouse Housing: Apartment Do you presently have visiting nurse or other home services: No Alcohol intake: never Patient Tobacco Use Status: Never used Tobacco Smoked in Last 30 Days: No Use of substances other than those prescribed or required for medical reasons: No Advance Directives: Yes Advance Directives on File: Yes Advance Directives Date on File: 03/12/21 service: No Current occupational status: retired <CHANDANA Kearney - Last Filed: 06/19/22 16:09> Physical Exam Vital Signs: Vital Signs: Last Vital Signs Temp 97.9 F 06/19/22 12:49 Pulse 70 06/19/22 15:46 Resp 20 06/19/22 15:46 BP 128/65 06/19/22 15:46 Pulse Ox 100 06/19/22 15:46 O2 Del Method 06/19/22 15:46 BMI result Body Mass Index 26.4 <CHANDANA Kearney - Last Filed: 06/19/22 16:09> Vital Signs: Last Vital Signs Temp 97.9 F 06/19/22 12:49 Pulse 70 06/19/22 15:46 Resp 20 06/19/22 15:46 BP 128/65 06/19/22 15:46 Pulse Ox 100 06/19/22 15:46 O2 Del Method 06/19/22 15:46 BMI result Body Mass Index 26.4 <Valentino Resendiz MD - Last Filed: 06/23/22 11:34> Const: General: cooperative, no acute distress, alert and awake <CHANDANA Kearney - Last Filed: 06/19/22 16:09> Nutritional Appearance: well nourished <CHANDANA Kearney - Last Filed: 06/19/22 16:09> Orientation/consciousness: patient oriented x3 <Estrellita Danny [place] - Last Filed: 06/19/22 16:09> Limitations: no limitations <Estrellitaaruna Vivasenrique [place] - Last Filed: 06/19/22 16:09> HEENT: Head: Yes normal to inspection and Yes atraumatic <Estrellita Vivasenrique [place] - Last Filed: 06/19/22 16:09> Ears: hearing grossly normal bilaterally and external ears normal <Estrellitaaruna Vivasenrique [place] - Last Filed: 06/19/22 16:09> General nose exam: Normal external nose present, no nasal discharge noted and no epistaxis <Estrellita Vivasenrique [place] - Last Filed: 06/19/22 16:09> Face and sinus: Yes normal facial exam, No abrasion and No laceration <Estrellita Danny [place] - Last Filed: 06/19/22 16:09> Mouth: Normal oral and palatal mucosa present, no drooling and no muffled voice <Estrellita Delgado [place] - Last Filed: 06/19/22 16:09> Eyes: General: appearance normal, both eyes and all related structures <Estrellitaaruna Vivasenrique [place] - Last Filed: 06/19/22 16:09> Periorbital: periorbital findings normal <Estrellita Danny KS - Last Filed: 06/19/22 16:09> Eyelids: Yes eyelids normal <Estrellita Vivasenrique KS - Last Filed: 06/19/22 16:09> Conjunctivae: conjunctivae normal <Estrellita Danny KS - Last Filed: 06/19/22 16:09> Pupils: Equal, round and reactive pupils present <Estrellita Danny KS - Last Filed: 06/19/22 16:09> EOM: EOMs intact bilaterally <Estrellita Danny KS - Last Filed: 06/19/22 16:09> Neck: Neck: Yes normal visual inspection, Yes full ROM and Yes no lymphadenopathy <Estrellita Delgado KS - Last Filed: 06/19/22 16:09> Chest: Chest palpation & inspection: normal inspection of the chest <Estrellita Delgado KS - Last Filed: 06/19/22 16:09> Resp: Effort & Inspection: normal respiratory effort and able to speak in complete sentences <Estrellita Delgado KS - Last Filed: 06/19/22 16:09> Auscultation: clear to auscultation bilaterally <Estrellita Delgado PA - Last Filed: 06/19/22 16:09> Cardio: Rate: regular rate <Estrellita Delgado PA - Last Filed: 06/19/22 16:09> Rhythm: regular rhythm <Estrellita Delgado PA - Last Filed: 06/19/22 16:09> GI: Inspection: Yes normal to inspection <Estrellita Delgado PA - Last Filed: 06/19/22 16:09> Palpation (GI): Soft to palpation, not firm, nontender, no guarding and not rigid <Estrellita Delgado PA - Last Filed: 06/19/22 16:09> Neuro: General: patient oriented x3 and moves all extremities <Estrellita Delgado PA - Last Filed: 06/19/22 16:09> Cranial nerves: Yes Equal, round and reactive pupils present <Estrellita Delgado KS - Last Filed: 06/19/22 16:09> Cognition (Neuro): normal cognition <Estrellita Delgado PA - Last Filed: 06/19/22 16:09> Motor exam (neuro): 5/5 motor strength present throughout <Estrellita Delgado PA - Last Filed: 06/19/22 16:09> Sensory Exam: Normal double simultaneous stimulation for sensation <Estrellita Delgado PA - Last Filed: 06/19/22 16:09> Coordination: [id number] test normal <Estrellita Vivasenrique KS - Last Filed: 06/19/22 16:09> Extrem: General: Yes normal to inspection, Yes full ROM and Yes capillary refill normal <Estrellita Delgado PA - Last Filed: 06/19/22 16:09> Psych: Appearance: grossly normal <Estrellita Vivasenrique PA - Last Filed: 06/19/22 16:09> Mental Status: mental status grossly normal <Estrellita Vivasenrique PA - Last Filed: 06/19/22 16:09> Affect: normal affect <Estrellita Vivasenrique PA - Last Filed: 06/19/22 16:09> Attitude: cooperative <Estrellitaaruna Vivasenrique PA - Last Filed: 06/19/22 16:09> Thought process: Normal thought process present <Estrellita Delgado PA - Last Filed: 06/19/22 16:09> Thought content: Normal thought content present <Estrellita Delgado PA - Last Filed: 06/19/22 16:09> Insight: Good insight present (Psych) <Estrellita Delgado PA - Last Filed: 06/19/22 16:09> NIH Stroke Scale Internal: Initial- Upon Arrival <Estrellita Delgado PA - Last Filed: 06/19/22 16:09> Time: 13:54 <Estrellita Delgado PA - Last Filed: 06/19/22 16:09> Level of Consciousness: Alert <Estrellita Delgado PA - Last Filed: 06/19/22 16:09> Level of Consciousness Questions: Answers both questions correctly <Estrellita Delgado PA - Last Filed: 06/19/22 16:09> Level of Consciousness Commands: Performs both tasks correctly <Estrellita Delgado PA - Last Filed: 06/19/22 16:09> Best Gaze: Normal <Estrellita Delgado PA - Last Filed: 06/19/22 16:09> Visual: No visual loss <Estrellita Delgado PA - Last Filed: 06/19/22 16:09> Facial Palsy: Normal <Estrellita Delgado PA - Last Filed: 06/19/22 16:09> Motor Arm (Right): No drift <Estrellita Delgado PA - Last Filed: 06/19/22 16:09> Motor Arm (Left): No drift <Estrellita Delgado PA - Last Filed: 06/19/22 16:09> Motor Leg (Right): No drift <Estrellita Delgado PA - Last Filed: 06/19/22 16:09> Motor Leg (Left): No drift <Estrellita Delgado PA - Last Filed: 06/19/22 16:09> Limb Ataxia: Absent <Estrellita Delgado PA - Last Filed: 06/19/22 16:09> Sensory: Normal <Estrellita Delgado PA - Last Filed: 06/19/22 16:09> Best Language: No aphasia <Estrellita Delgado PA - Last Filed: 06/19/22 16:09> Dysarthia: Normal <CHANDANA Kearney - Last Filed: 06/19/22 16:09> Extinction and Inattention: No abnormality <CHANDANA Kearney - Last Filed: 06/19/22 16:09> Score: 0 <CHANDANA Kearney - Last Filed: 06/19/22 16:09> 0 <Valentino Resendiz MD - Last Filed: 06/23/22 11:34> Medications Administered Discontinued Medications Generic Name Dose Route Start Last Admin Trade Name Freq PRN Reason Stop Dose Admin Ketorolac Tromethamine 15 mg 06/19/22 14:11 06/19/22 15:57 Ketorolac Tromethamine 15 Mg/Ml Vial IM 06/19/22 14:12 Not Given ONCE ONE Meclizine HCl 25 mg 06/19/22 15:30 06/19/22 15:57 Meclizine Hcl 25 Mg Tablet PO 06/19/22 15:31 25 mg ONCE ONE Administration <CHANDANA Kearney - Last Filed: 06/19/22 16:09> Medications Administered Discontinued Medications Generic Name Dose Route Start Last Admin Trade Name Freq PRN Reason Stop Dose Admin Ketorolac Tromethamine 15 mg 06/19/22 14:11 06/19/22 15:57 Ketorolac Tromethamine 15 Mg/Ml Vial IM 06/19/22 14:12 Not Given ONCE ONE Meclizine HCl 25 mg 06/19/22 15:30 06/19/22 15:57 Meclizine Hcl 25 Mg Tablet PO 06/19/22 15:31 25 mg ONCE ONE Administration <Valentino Resendiz MD - Last Filed: 06/23/22 11:34> Medical Decision Making Medical Decision Making MDM Narrative: Patient is an 81 year old assigned female at with a history of NSTEMI and BPPV presenting to the emergency department today with dizziness. Patient's physical exam was unremarkable. Patient's blood work was unremarkable. Patient's EKG was unremarkable. Patient's head CT showed no acute process. I explained my physical exam findings as well as all test results to the patient. I answered all questions asked by the patient. Patient's clinical presentation is most consistent with BPPV. Patient received IM Toradol and PO Antivert which she stated helped her symptoms significantly. I stressed the importance of the patient taking her medication as prescribed. I stressed the importance of the patient following up with her primary care provider, an ENT, and a neurologist. I stressed the importance of the patient returning to the emergency department immediately if her symptoms were to worsen or if she were to develop any dizziness, shortness of breath, difficulty breathing, chest pain, blurry vision, loss of vision, nausea, vomiting, abdominal pain, fever, chills, back pain, or any other complaints. Patient verbalized agreement and understanding with this treatment plan and discharge. <CHANDANA Kearney - Last Filed: 06/19/22 16:09> Differential Diagnosis Differential Diagnoses: The differential diagnosis associated with the presentation includes <CHANDANA Kearney - Last Filed: 06/19/22 16:09> BPPV, dizziness <CHANDANA Kearney - Last Filed: 06/19/22 16:09> Lab Data MDM Lab Attestation statement: I reviewed the patient's lab results. <CHANDANA Kearney - Last Filed: 06/19/22 16:09> Result Diagrams: 06/19/22 13:57 06/19/22 13:57 <CHANDANA Kearney - Last Filed: 06/19/22 16:09> Labs: Lab Results 06/19/22 06/19/22 06/19/22 Range/Units 13:57 13:57 13:57 WBC 7.5 (4.8-10.8) X10*3/uL RBC 4.41 (4.20-5.50) X10*6/uL Hgb 14.0 (12.0-16.0) g/dl Hct 41.5 (37.0-47.0) % MCV 94.1 (80.0-98.0) fL MCH 31.7 (27.0-33.0) pg MCHC 33.7 (31.0-35.0) g/dl RDW 12.3 (11.0-16.0) % Plt Count 240 (160-400) X10*3/uL MPV 10.1 (9.4-12.3) fL Immature Gran % (Auto) 0.3 (0.0-0.4) % Neut % (Auto) 59.7 (45-73) % Lymph % (Auto) 30.3 (20-40) % [place] % (Auto) 8.1 (2-11) % Eos % (Auto) 1.3 (0-4) % Baso % (Auto) 0.3 (0-2) % Lymph # (Auto) 2.3 (1.2-4.9) X10*3/uL [place] # (Auto) 0.6 (0.1-1.2) X10*3/uL Eos # (Auto) 0.1 (0.0-0.4) X10*3/uL Baso # (Auto) 0.0 (0.0-0.2) X10*3/uL Abs Immat Gran (auto) 0.02 (0.00-0.03) X10*3/uL Absolute Neuts (auto) 4.5 (2.0-8.3) x10*3/uL Absolute Nucleated RBC 0.000 (0.0-0.012) X10*3/uL Nucleated RBC % (auto) 0.0 (0.0-0.2) /100WBC Sodium 138 (135-145) mmol/L Potassium 4.6 (3.3-5.1) mmol/L Chloride 107 (96-108) mmol/L Carbon Dioxide 26 (22-29) mmol/L Anion Gap 10 L (12-20) BUN 18 H (9-16) mg/dL Creatinine 0.74 (0.5-1.4) mg/dL Estim Creat Clear Calc 48.7 Estimated GFR > 60 Random Glucose 109 (60-115) mg/dL Calcium 9.3 (8.4-10.2) mg/dL Troponin I High Sens < 3.5 (<3.5-17.0) ng/L <CHANDANA Kearney - Last Filed: 06/19/22 16:09> Lab Results 06/19/22 06/19/22 06/19/22 Range/Units 13:57 13:57 13:57 WBC 7.5 (4.8-10.8) X10*3/uL RBC 4.41 (4.20-5.50) X10*6/uL Hgb 14.0 (12.0-16.0) g/dl Hct 41.5 (37.0-47.0) % MCV 94.1 (80.0-98.0) fL MCH 31.7 (27.0-33.0) pg MCHC 33.7 (31.0-35.0) g/dl RDW 12.3 (11.0-16.0) % Plt Count 240 (160-400) X10*3/uL MPV 10.1 (9.4-12.3) fL Immature Gran % (Auto) 0.3 (0.0-0.4) % Neut % (Auto) 59.7 (45-73) % Lymph % (Auto) 30.3 (20-40) % [place] % (Auto) 8.1 (2-11) % Eos % (Auto) 1.3 (0-4) % Baso % (Auto) 0.3 (0-2) % Lymph # (Auto) 2.3 (1.2-4.9) X10*3/uL [place] # (Auto) 0.6 (0.1-1.2) X10*3/uL Eos # (Auto) 0.1 (0.0-0.4) X10*3/uL Baso # (Auto) 0.0 (0.0-0.2) X10*3/uL Abs Immat Gran (auto) 0.02 (0.00-0.03) X10*3/uL Absolute Neuts (auto) 4.5 (2.0-8.3) x10*3/uL Absolute Nucleated RBC 0.000 (0.0-0.012) X10*3/uL Nucleated RBC % (auto) 0.0 (0.0-0.2) /100WBC Sodium 138 (135-145) mmol/L Potassium 4.6 (3.3-5.1) mmol/L Chloride 107 (96-108) mmol/L Carbon Dioxide 26 (22-29) mmol/L Anion Gap 10 L (12-20) BUN 18 H (9-16) mg/dL Creatinine 0.74 (0.5-1.4) mg/dL Estim Creat Clear Calc 48.7 Estimated GFR > 60 Random Glucose 109 (60-115) mg/dL Calcium 9.3 (8.4-10.2) mg/dL Troponin I High Sens < 3.5 (<3.5-17.0) ng/L <Valentino Resendiz MD - Last Filed: 06/23/22 11:34> Independent Interpretation I performed an independent interpretation of an: EKG <CHANDANA Kearney - Last Filed: 06/19/22 16:09> Interpretation: Vent. Rate: 064 BPM ? ? Atrial Rate: 064 BPM P-R Int: 164 ms? QRS Dur: 118 ms QT Int: 468 ms ? ? ? P-R-T Axes: 055 012 078 degrees QTc Int: 482 ms ? Normal sinus rhythm Possible Anterior infarct , age undetermined Abnormal ECG When compared with ECG of 21-DEC-2021 09:42, Left bundle branch block is no longer Present Borderline criteria for Anterior infarct are now Present DD/ 1336 <CHANDANA Kearney - Last Filed: 06/19/22 16:09> Radiology Impression Radiologist Impression: My interpretation is in agreement with the radiologist's impression of this imaging study. EXAMINATION: CT HEAD WITHOUT CONTRAST CLINICAL INFORMATION: Headache COMPARISON: CT head 12/21/2021 TECHNIQUE: Contiguous axial imaging was performed from the skull base to vertex without intravenous administration of contrast. Coronal and sagittal reformatted images are performed at the CT scanner. [This CT examination was performed using dose optimization techniques as appropriate, variously including the following: *Automated exposure control *Adjustment of mA and/or kV according to patient size (this includes techniques or standardized protocols for targeted exams where dose is matched to indication/reason for exam; i.e. extremities or head) *Use of iterative reconstruction technique] DLP: 630 mGy-cm. FINDINGS: There is no evidence of acute intracranial hemorrhage or territorial infarction. No abnormal mass-effect or midline shift is seen. Shah to white matter differentiation is well preserved. No extra-axial fluid collections are identified. There is generalized global volume loss. There is mild prominence of the ventricles and the sulci . There is mild hypodensity of the periventricular white matter due to chronic small vessel ischemic disease. There are vascular calcifications of the internal carotid arteries bilaterally. There is no osseous abnormality. The mastoid air cells and visualized portions of the paranasal sinuses are well-aerated. CT/CT head/brain wo IV con IMPRESSION: No acute intracranial pathology. Dictated By: Jimmy Winkler MD Signed By: Electronically signed by Jimmy Winkler MD 06/19/22 1535 <CHANDANA Kearney - Last Filed: 06/19/22 16:09> Independent Historian Clinical information obtained from an independent historian. History obtained from or confirmed by: EMS <CHANDANA Kearney - Last Filed: 06/19/22 16:09> Attestation Attending Attestation: I reviewed TANKAGE SUPERVISOR/PA/Resident note, assessment and plan. I agree with the documentation, assessment and plan unless otherwise stated. <Valentino Resendiz MD - Last Filed: 06/23/22 11:34> Discharge Plan Discharge Clinical Impression: Benign paroxysmal positional vertigo <CHANDANA Kearney - Last Filed: 06/19/22 16:09> Patient Disposition: Home, Self-Care <CHANDANA Kearney - Last Filed: 06/19/22 16:09> Instructions: Benign Paroxysmal Positional Vertigo (ED) <CHANDANA Kearney - Last Filed: 06/19/22 16:09> Additional Instructions: Follow up with your primary care provider, an ENT, and a neurologist. Return to the emergency department immediately if your symptoms worsen or if you develop any dizziness, shortness of breath, difficulty breathing, chest pain, blurry vision, loss of vision, nausea, vomiting, abdominal pain, fever, chills, back pain, or any other complaints. Alisha un seguimiento con pulido proveedor de atenci?n primaria, un otorrinolaring?logo y un neur?logo. Regrese al departamento de emergencias de inmediato si benson s?ntomas empeoran o si presenta mareos, falta de aire, dificultad para respirar, dolor de pecho, visi?n borrosa, p?rdida de la visi?n, n?useas, v?mitos, dolor abdominal, fiebre, escalofr?os, dolor de espalda o cualquier otras quejas. <CHANDANA Kearney - Last Filed: 06/19/22 16:09> Prescriptions: No Action carvedilol 25 mg tablet 1 tab PO BID cetirizine 10 mg tablet 1 tab PO DAILY sumatriptan succinate 100 mg tablet 0.25 - 0.5 tab PO DAILY PRN (Reason: migraine) aspirin 81 mg tablet,delayed release (DR/EC) 1 tab PO DAILY lisinopril 5 mg tablet 1 tab PO DAILY rosuvastatin [Crestor] 40 mg tablet 1 tab PO BEDTIME cholecalciferol (vitamin D3) 50 mcg (2,000 unit) tablet 1 tab PO DAILY meclizine 25 mg tablet 1 tab PO DAILY PRN (Reason: Dizziness) clotrimazole-betamethasone 1-0.05 % cream 1 appl topical DAILY nitroglycerin 0.4 mg tablet, sublingual 1 tab sublingual Q5M PRN (Reason: Chest Pain) docusate sodium 100 mg capsule 1 cap PO BEDTIME PRN (Reason: Constipation) hydrocortisone 2.5 % cream 1 appl topical BID PRN (Reason: itch) ipratropium bromide 21 mcg (0.03 %) spray,non-aerosol 2 spray intranasal BID lorazepam [Ativan] 0.5 mg tablet 0.5 mg PO DAILY PRN (Reason: vertigo) Qty: 7 0RF <CHANDANA Kearney - Last Filed: 06/19/22 16:09> Referrals: [facility] [Provider Group] [facility] [Provider Group] Lubna Fong MD [Primary Care Provider] - <CHANDANA Kearney - Last Filed: 06/19/22 16:09> Interventions: ED Discharge Assessment Last Done: 06/19/22 16:14 <CHANDANA Kearney - Last Filed: 06/19/22 16:09> Discharge Date/Time: 06/19/22 16:15 <CHANDANA Kearney - Last Filed: 06/19/22 16:09> Print Language: Slovak <CHANDANA Kearney - Last Filed: 06/19/22 16:09>
--- NOTE | 2022-06-19 14:00 | PC.NURSE ---
Reports dizziness and cp since Thursday. Also c/o headache. Neuros are intact. Speech clear. NSR on monitor. Refuses IV at this time. Blood drawn. Breathing even/unlabored
[2022-06-19 14:03] LABS: MANUAL DIFF FLAG NO
[2022-06-19 14:07] LABS: Basophils Percent Auto 0.3 % (0-2); Eosinophils Absolute Auto 0.1 X10*3/uL (0.0-0.4); Eosinophils Percent Auto 1.3 % (0-4); Hematocrit 41.5 % (37.0-47.0); Imm Gran Abs Auto 0.02 X10*3/uL (0.00-0.03); Imm Gran Pct Auto 0.3 % (0.0-0.4); Lymphocytes Absolute Auto 2.3 X10*3/uL (1.2-4.9); Lymphocytes Percent Auto 30.3 % (20-40); Mean Corpuscular HGB Conc 33.7 g/dl (31.0-35.0); Mean Corpuscular Hemoglobin 31.7 pg (27.0-33.0); Mean Corpuscular Volume 94.1 fL (80.0-98.0); Mean Platelet Volume 10.1 fL (9.4-12.3); Monocytes Absolute Auto 0.6 X10*3/uL (0.1-1.2); Monocytes Percent Auto 8.1 % (2-11); Neutrophils Absolute Auto 4.5 x10*3/uL (2.0-8.3); Neutrophils Percent Auto 59.7 % (45-73); Platelet Count 240 X10*3/uL (160-400); Red Blood Count 4.41 X10*6/uL (4.20-5.50); Red Cell Distribution Width 12.3 % (11.0-16.0); White Blood Count 7.5 X10*3/uL (4.8-10.8)
[2022-06-19 14:20] LABS: Anion Gap 10 (12-20); Blood Urea Nitrogen 18 mg/dL (9-16); Calcium 9.3 mg/dL (8.4-10.2); Carbon Dioxide 26 mmol/L (22-29); Chloride 107 mmol/L (96-108); Creatinine Clr Calc Pharmacy 48.7; Estimated Glomerular Filt Rate > 60; Glucose Random 109 mg/dL (60-115); Potassium 4.6 mmol/L (3.3-5.1); Sodium 138 mmol/L (135-145)
[2022-06-19 14:29] LABS: Troponin-I High Sensitivity < 3.5 ng/L (<3.5-17.0)
[2022-06-19 15:46] VITALS: BP 128/65; PULSE 70; RESP 20; O2SAT 100
[2022-06-19] MEDS: Meclizine HCl 25 MG TABLET PO (15:57)
== END 2022-06-19 16:15 | disposition home or self-care (01) ==
PROVIDERS: Emergency Provider Emergency Medicine; PCP Family Medicine
DX: H81.10 Benign paroxysmal vertigo, unspecified ear (principal); R51.9 Headache, unspecified; I10 Essential (primary) hypertension; Z79.899 Other long term (current) drug therapy; Z79.82 Long term (current) use of aspirin; Z79.02 Long term (current) use of antithrombotics/antiplatelets
CPT/HCPCS: 36415; 70450; 80048; 84484; 85025; 93005; 99284; 99285

== ENCOUNTER 2022-08-11 10:58 | Outpatient (REF) | payer OTHER, SELFPAY ==
--- NOTE | ~2022-08-11 | MR_ITS ---
EXAMINATION: MR BRAIN WITHOUT AND WITH CONTRAST CLINICAL INFORMATION: Acoustic neuroma. Vertigo. Migraine headaches. Decreased right-sided hearing. COMPARISON: Brain MRI from 09/12/2016. CT head from 06/19/2022. TECHNIQUE: Multiplanar, multisequence MRI of the brain was obtained using a skull base protocol without and following the administration of 6 mL of Gadavist intravenous contrast. FINDINGS: No focal restricted diffusion is demonstrated to suggest acute or subacute cerebral ischemia. No evidence of acute or chronic hemorrhagic products on heme-sensitive imaging. Scattered periventricular and deep white matter T2 FLAIR hyperintensities consistent with mild underlying microangiopathy. Proportional prominence of the ventricles and sulcal spaces without evidence of obstructive hydrocephalus. No abnormal mass effect. No midline shift. The sella turcica is moderately expanded with partial flattening of the pituitary gland. Normal positioning of the cerebellar tonsils. No mass of the cerebellopontine angles. Normal appearance of the cranial nerve V, VII, and VIII nerve roots. No edema or vascular loops near the nerve root entry sites. Normal appearance of the internal auditory canals without enhancing mass lesions. No abnormal enhancement along the course of the facial nerves bilaterally. Normal appearance of the labyrinthine structures without loss of T2 signal or abnormal enhancement. Normal arterial and venous vascular flow voids are present. No abnormal intracranial contrast enhancement. Normal, homogeneous marrow signal. Mild degenerative spondyloarthropathy of the visualized upper cervical spine. Mild mucosal thickening of the paranasal sinuses. No signal abnormalities within the mastoids. MR/MR head/brain wo/w con IMPRESSION: 1. No acute intracranial abnormalities. No abnormal intracranial enhancement. 2. Mild underlying microangiopathy and generalized cerebral volume loss. 3. No additional MRI abnormalities to explain the patient's symptoms.
== END 2022-08-11 10:59 | disposition home or self-care (01) ==
LOC: HO.MRI 10:58
PROVIDERS: PCP Family Medicine; Visit Provider Otolaryngology
DX: H81.4 Vertigo of central origin (principal); D33.3 Benign neoplasm of cranial nerves
CPT/HCPCS: 70553; A9585

== ENCOUNTER 2022-10-23 12:25 | Outpatient (REF) | payer OTHER, SELFPAY ==
--- NOTE | ~2022-10-23 | MM_ITS ---
EXAMINATION: MM SCREENING DIGITAL BREAST TOMOSYNTHESIS, BILATERAL CLINICAL INFORMATION: Screening. Asymptomatic. The lifetime risk of breast cancer based on the Tyrer-Cuzick Model is 3%. COMPARISON: Mammography: 07/26/2020, 04/28/2019, 04/01/2018 TECHNIQUE: Digital breast tomosynthesis is performed in both the craniocaudal and mediolateral oblique views along with computer-aided detection (CAD). Synthesized 2D images are generated from the tomosynthesis. FINDINGS: The breasts are heterogeneously dense, which may obscure small masses (ACR BI-RADS breast composition Category c). Fibronodular parenchymal pattern is similar to prior studies and there is no developing density or architectural abnormality. Benign grouped coarse calcifications are again seen posterior upper right breast. And some other scattered incidental punctate calcifications are again noted. There are no significant masses, abnormal calcifications, or other abnormalities. The axilla and skin contours are unremarkable. MM/MM tomosynthesis screening BI IMPRESSION: No mammographic evidence of malignancy. ASSESSMENT: BI-RADS 2: Benign RECOMMENDATION: Routine annual mammography screening. This patient's information was entered into a reminder system with a target due date for their next mammogram.
== END 2022-10-23 12:26 | disposition home or self-care (01) ==
LOC: HO.MAMMO 12:25
PROVIDERS: PCP Family Medicine; Visit Provider Family Medicine
DX: Z12.31 Encounter for screening mammogram for malignant neoplasm of breast (principal)
CPT/HCPCS: 77063; 77067

== ENCOUNTER 2023-06-09 10:19 | Outpatient (REF) | payer OTHER, SELFPAY ==
[2023-06-09 12:56] LABS: Alanine Aminotransferase 40 U/L (0-31); Albumin Level 4.2 g/dL (3.5-5.0); Alkaline Phosphatase 90 U/L (39-117); Anion Gap 14 (12-20); Aspartate Amino Transferase 26 U/L (5-31); Bilirubin Total 0.4 mg/dL (0.0-1.0); Blood Urea Nitrogen 19 mg/dL (9-16); Calcium 9.6 mg/dL (8.4-10.2); Carbon Dioxide 29 mmol/L (22-29); Chloride 104 mmol/L (96-108); Cholesterol 135 mg/dL (<200); Estimated Glomerular Filt Rate > 60; Glucose Random 125 mg/dL (60-115); HDL Cholesterol 43 mg/dL (>40); LDL Cholesterol Calculated 66 mg/dL (<100); Potassium 4.3 mmol/L (3.3-5.1); Sodium 143 mmol/L (135-145); Total Protein 7.5 g/dL (6.5-8.0); Triglycerides 132 mg/dL (<150)
[2023-06-09 13:20] LABS: Creatinine Urine 345.06 mg/dL; Microalbum/Creatinine Ratio Ur 16.2 ug/mg cr (<30)
[2023-06-09 14:59] LABS: Reflex LDLD? No
== END 2023-06-09 10:20 | disposition home or self-care (01) ==
LOC: HO.HHCL 10:19
PROVIDERS: Visit Provider Family Medicine
DX: E11.9 Type 2 diabetes mellitus without complications (principal); E78.5 Hyperlipidemia, unspecified
CPT/HCPCS: 36415; 80053; 80061; 82043; 82570

== ENCOUNTER 2023-07-07 10:18 | Outpatient (REF) | payer OTHER, SELFPAY ==
--- NOTE | ~2023-07-07 | MM_ITS ---
EXAMINATION: BONE DENSITOMETRY CLINICAL INDICATION: Osteopenia. COMPARISON: Previous BD dated 11/13/2016 and baseline BD dated 12/20/2008. TECHNIQUE: Using a [employer] DXA System (software version: 13.1) manufactured by [employer], dual-energy x-ray absorptiometry was performed of the lumbar spine and left hip. The images are of good technical quality. Summary results are attached. FINDINGS: LEFT FEMUR, NECK: Current: BMD 0.790 g/cm2, Z-score 0.6, T-score -1.8, osteopenia. Prior: BMD 0.850 g/cm2. Baseline: BMD 0.864 g/cm2. LEFT FEMUR, TOTAL: Current: BMD 0.929 g/cm2, Z-score 1.6, T-score -0.6, normal, 3.7% decrease from previous, 6.1% decrease from baseline (<5% change is not significant). Prior: BMD 0.965 g/cm2. Baseline: BMD 0.989 g/cm2. AP SPINE L1-L4: Current: BMD 1.019 g/cm2, Z-score 0.7, T-score -1.3, osteopenia, 1.5% increase from previous, 1.9% increase from baseline (<5% change is not significant). Prior: BMD 1.004 g/cm2. Baseline: BMD 1.000 g/cm2. IDENTIFIED RISK FACTORS: Height loss, hysterectomy, menopause, left oophorectomy. HISTORY OF FRACTURE: None listed. MEDICATIONS: Vitamin D. MM/XR DEXA axial skeleton IMPRESSION: 1. DIAGNOSIS: Osteopenia based on the lowest T-score value of -1.8 in the femoral neck applying World Health Organization criteria. 2. 10-YEAR FRACTURE RISK PREDICTION, FRAX: Major osteoporotic fracture (clinical spine, forearm, hip or shoulder) 9.1%. Hip fracture 2.5%. 3. Treatment Recommendations: NOF guidelines recommend consideration for treatment in postmenopausal women and men age 50 and older presenting with the following: -A hip or vertebral (clinical or morphometric) fracture. -T-score less than or equal to -2.5 at the femoral neck or spine after appropriate evaluation to exclude secondary causes. -Low bone mass at the hip or spine and a 10-year fracture probability by FRAX of greater than or equal to 3% for hip fracture or greater than or equal to 20% for major osteoporotic fracture based on the [place] adapted WHO algorithm. 4. Other Recommendations: All treatment decisions require clinical judgment and consideration of individual patient factors, including patient preferences, comorbidities, previous drug use, risk factors not captured in the FRAX model (e.g. frailty, falls, vitamin D deficiency, increased bone turnover, interval significant decline in bone density) and possible under or overestimation of fracture risk by FRAX. Additional medical evaluation for secondary cause of low bone mineral density may be appropriate. FUTURE SCAN RECOMMENDATION: People with diagnosed cases of osteoporosis or at high risk for fracture should have regular bone mineral density tests. For patients eligible for Medicare, routine testing is allowed once every 2 years. The testing frequency can be increased to one year for patients who have rapidly progressing disease, those who are receiving or discontinuing medical therapy to restore bone mass, or have additional risk factors.
== END 2023-07-07 10:19 | disposition home or self-care (01) ==
LOC: HO.MAMMO 10:18
PROVIDERS: Visit Provider Family Medicine
DX: Z13.820 Encounter for screening for osteoporosis (principal); M85.88 Other specified disorders of bone density and structure, other site
CPT/HCPCS: 77080

== ENCOUNTER 2024-01-28 10:04 | Outpatient (REF) | payer OTHER, SELFPAY ==
[2024-01-28 12:12] LABS: Alanine Aminotransferase 20 U/L (0-31); Albumin Level 3.9 g/dL (3.5-5.0); Alkaline Phosphatase 72 U/L (39-117); Anion Gap 10 (12-20); Appearance Urine Turbid; Aspartate Amino Transferase 16 U/L (5-31); Bilirubin Total 0.4 mg/dL (0.0-1.0); Blood Urea Nitrogen 15 mg/dL (9-16); Calcium 9.6 mg/dL (8.4-10.2); Carbon Dioxide 27 mmol/L (22-29); Chloride 108 mmol/L (96-108); Cholesterol 128 mg/dL (<200); Color Urine Yellow; Estimated Glomerular Filt Rate > 60; Glucose Random 134 mg/dL (60-115); Glucose Urine UA Negative (Negative); HDL Cholesterol 41 mg/dL (>40); LDL Cholesterol Calculated 62 mg/dL (<100); Leukocyte Esterase Urine Trace (Negative); Nitrite Urine Negative (Negative); PH 5.5 (5.0-9.0); Potassium 4.4 mmol/L (3.3-5.1); Sodium 141 mmol/L (135-145); Specific Gravity - Urine 1.025 (1.005-1.025); Total Protein 7.1 g/dL (6.5-8.0); Triglycerides 127 mg/dL (<150); UMIC TRIGGER UACC YES; Urine Blood Negative (Negative); Urine Ketones Negative (Negative); Urine Protein Trace mg/dL (Neg-Trace)
[2024-01-28 12:26] LABS: Bacteria Urine None Seen (None Seen); Calcium Oxalate Crystals Urine Present; Hyaline Casts Urine 0-2 /LPF (0-2); RBC Urine 0-2 /HPF (0-2); WBC Urine 0-5 /HPF (0-5)
[2024-01-28 12:49] LABS: Reflex LDLD? No
== END 2024-01-28 10:05 | disposition home or self-care (01) ==
LOC: HO.HHCL 10:04
PROVIDERS: Visit Provider Family Medicine
DX: E78.5 Hyperlipidemia, unspecified (principal); R32 Unspecified urinary incontinence
CPT/HCPCS: 36415; 80053; 80061; 81001

== ENCOUNTER 2024-02-15 10:11 | Outpatient (REF) | payer OTHER, SELFPAY ==
--- NOTE | ~2024-02-15 | XR_ITS ---
EXAMINATION: XR SHOULDER, LEFT CLINICAL INFORMATION: Left shoulder pain for 2 days COMPARISON: Left shoulder x-ray on 12/21/2021 TECHNIQUE: AP external rotation, Grashey, scapular Y, and axillary views of the left shoulder. FINDINGS: BONES: Bony structures are intact. There is no focal bone destruction or periosteal reaction seen. JOINTS: Alignment of joints is normal. SOFT TISSUE: Soft tissue is normal. No radiopaque foreign body or abnormal air collection is seen. XR/XR shoulder LT min 2V IMPRESSION: 1. Unchanged Normal x-rays of left shoulder. No fracture or dislocation or signs of osteomyelitis are found. Electronically signed by: Gera Gomez MD 02/15/2024 10:52 AM EDT
== END 2024-02-15 10:12 | disposition home or self-care (01) ==
LOC: HO.HHCX 10:11
PROVIDERS: Visit Provider Emergency Medicine
DX: M25.512 Pain in left shoulder (principal)
CPT/HCPCS: 73030

== ENCOUNTER 2024-03-25 09:56 | Outpatient (REF) | payer OTHER, SELFPAY ==
--- NOTE | ~2024-03-25 | MR_ITS ---
EXAMINATION: MRI LEFT SHOULDER WITHOUT CONTRAST CLINICAL INFORMATION: severe shoulder pain, limited ROM. COMPARISON: Radiographs 02/15/2024 TECHNIQUE: MRI of the shoulder without contrast is performed on a 1.5 Brooke high-field scanner. FINDINGS: ROTATOR CUFF: Moderate supraspinatus tendinopathy. No definite tendon tear. Edema and mild atrophy of the infraspinatus muscle. BICEPS: Normal. CORACOACROMIAL ARCH: The undersurface of the acromion is flat with no subacromial spur. Mild acromioclavicular osteoarthritis. LABRUM/CAPSULE: Evidence of an undersurface tear of the posterior superior labrum with a 7 mm per labral cyst projecting medially. There is a prominent vessel along the spinoglenoid notch. Given the changes of the infraspinatus muscle, impingement upon the suprascapular nerve and secondary denervation changes of the muscle should be considered. GLENOHUMERAL JOINT/MARROW: Mild degenerative spurring along the greater tuberosity. No joint effusion. ADDITIONAL FINDINGS: None. MR/MR shoulder LT wo con IMPRESSION: 1. Moderate supraspinatus tendinopathy. No definite rotator cuff tear. 2. Edema and mild atrophy of the infraspinatus muscle with a prominent vessel along the spinoglenoid notch and adjacent paralabral cyst. Given the changes of the infraspinatus muscle, impingement upon the suprascapular nerve with secondary denervation change should be considered. 3. Evidence of an undersurface tear of the posterior superior labrum with a 7 mm paralabral cyst projecting medially. 4. Mild acromioclavicular and glenohumeral osteoarthritis. Electronically signed by: Abraham Lyle MD 04/09/2024 01:44 PM LINUS
== END 2024-03-25 09:57 | disposition home or self-care (01) ==
LOC: HO.MRI 09:56
PROVIDERS: PCP Family Medicine; Visit Provider Family Medicine
DX: M25.512 Pain in left shoulder (principal); G89.29 Other chronic pain
CPT/HCPCS: 73221

== ENCOUNTER 2024-08-24 11:34 | Outpatient (REF) | payer OTHER, SELFPAY ==
--- NOTE | ~2024-08-24 | XR_ITS ---
EXAMINATION: XR HIP 2 OR MORE VIEWS RIGHT HISTORY: hip pain x one day s/p fall COMPARISON: There are no prior studies for comparison. FINDINGS: Two views of the right hip are submitted. Osseous mineralization is normal. There is no fracture or dislocation. There is mild joint space narrowing. The soft tissues are unremarkable. XR/XR hip RT min 2V IMPRESSION: No evidence of fracture of the right hip. Electronically signed by: Sanchez Schwarz MD 08/24/2024 01:07 PM EDT
--- NOTE | ~2024-08-24 | XR_ITS ---
EXAMINATION: XR KNEE 4 OR MORE VIEWS RIGHT HISTORY: knee pain x 1 days s/p fall COMPARISON: There are no prior studies available for comparison. FINDINGS: Four views of the right knee are submitted. Osseous mineralization is normal. There is no fracture or dislocation. The joint spaces are preserved. The soft tissues are unremarkable. There is no joint effusion. XR/XR knee RT 4V IMPRESSION: Unremarkable examination of the right knee. Electronically signed by: Sanchez Schwarz MD 08/24/2024 01:23 PM EDT
--- NOTE | ~2024-08-24 | XR_ITS ---
EXAMINATION: XR CHEST CLINICAL INFORMATION: cough x one week COMPARISON: August 05, 2019. TECHNIQUE: 2 views of the chest were obtained. FINDINGS: Pulmonary reticular pattern. No consolidation, pleural effusion or pneumothorax. Cardiomediastinal silhouette size is normal. Multilevel thoracic and upper lumbar spondylosis. Calcifications in the aorta. XR/XR chest 2V IMPRESSION: Chronic interstitial lung disease. Superimposed acute small airway inflammatory process cannot be excluded. Electronically signed by: Romulo Haile MD 08/24/2024 01:09 PM EDT
--- OUTSIDE RECORDS SUMMARY | 2024-08-24 13:43 | XMS_ITS | Clinical Summary ---
Author Organization [facility] Facility Address [address] [place] [address], [place] [address] Care Team Providers Care Credit Associate Name Role Phone Lubna Fong MD Primary Care Provider [phone] Medications SUMAtriptan (IMITREX) 100 MG tablet TAKE 1/4 TO 1/2 TABLET BY MOUTH AT ONSET OF MIGRAINE. MAY REPEAT AFTER OF 2 HOURS NEEDED. NO MORE THAN 1 TABLET IN 24 HOURS 2 Active nitroglycerin (NITROSTAT) 0.4 MG SL tablet DISSOLVE 1 TABLET UNDER THE TONGUE EVERY 5 MINUTES NEEDED FOR CHEST PAIN. CALL 911 IF NO RELIEF AFTER 15 MINUTES. MAY REPEAT 3 TIMES 2 Active meclizine (ANTIVERT) 25 MG tablet Take 25 mg by mouth 1 (one) time each day if needed 2 Active lisinopril 5 MG tablet Take 5 mg by mouth 1 (one) time each day 2 Active ipratropium (ATROVENT) 0.03 % nasal spray USE 2 SPRAYS IN EACH NOSTRIL TWICE DAILY 2 Active Ergocalciferol 50 MCG (1999 UT) capsule Take 50 mcg by mouth 1 Active docusate sodium (COLACE) 100 MG capsule TAKE 1 CAPSULE BY MOUTH AT BEDTIME NEEDED FOR CONSTIPATION 2 Active cholecalciferol (VITAMIN D-3) 50 MCG (1999 UT) tablet Take 2,000 Units by mouth 1 (one) time each day 2 Active Aspirin Low Dose 81 MG EC tablet Take 81 mg by mouth 1 (one) time each day 2 Active Active Problems Problem Noted Date Diagnosed Date Type 2 diabetes mellitus 04/17/2022 Obstructive sleep apnea syndrome 04/17/2022 Left bundle-branch block 04/17/2022 Coronary arteriosclerosis 04/17/2022 Anxiety 04/17/2022 Social History Tobacco Use Types Packs/Day Years Used Date Smoking Tobacco: Never Assessed Comments Unknown Sex and Gender Information Value Date Recorded Sex Assigned at Not on file Legal Sex Female 11:10 AM EDT Gender Identity Not on file Sexual Orientation Not on file Plan of Treatment Health Maintenance Due Date Last Done Comments Pneumococcal Vaccine: 65+ Ye ars (1 of 1 - PCV) 2005 Diabetes: Hemoglobin A1C 01/28/2022 Diabetes: Ophthalmology Exam 01/28/2022 Diabetes: Pedal Pulse Checked 01/28/2022 Diabetes: Sensory Foot Exam 01/28/2022 Diabetes: Visual Foot Exam 01/28/2022 Influenza Vaccine (Season Ended) 2025 Hepatitis B Vaccine Aged Out No longe r eligible based on patient's age to complete this topic Insurance [facility] [employer] DUAL SNP ([id number]) CHANDANA JAIN [id number] [facility] [employer] DUAL SNP ([id number]) CHANDANA JAIN [id number] Care Teams Credit Associate Relationship Specialty Start Date End Date Lubna Fong MD PCP - General Family Medicine 01/27/22
--- OUTSIDE RECORDS SUMMARY | 2024-08-24 13:43 | XMS_ITS | Data Portability ---
Author Organization [employer] Address [address] [place] [address] Care Team Providers Care Freight Team Associate Name Role Phone [facility] Referring Provider HIM [facility] OTHER Assessment Encounter Date Assessment Date Assessment LastModified by Organization Details LastModified Time 01/29/2022 01/29/2022 This 81-year-old female with a history of vertigo recently has had a somewhat low BP, so today she was seen for follow up. She has no symptoms and no postural BP drop. I recommended that she continue to hydrate orally and follow up with her PCP. The patient agreed with this plan. [email or web address] Not available 01/29/2022 10:46:42 06/19/2022 06/19/2022 81 YOF previous diagnosis of vertigo taking meclizine being seen for dizziness. Currently no symptoms, and notes symptoms only occur when laying down and eyes are closed. No signs to suggest CVA, no evidence of arrythmia. Likely larythitis or vestibular neurititis as pt does not pressure in sinuses Pt will follow up with PCP and discussed need for possible ENT referral [email or web address] Not available 06/19/2022 11:38:41 Plan of Treatment Reminders Order Date Submit Date Provider Last Modified By Organization Details Last Modified Time Details Appointments None record ed. Lab None record ed. Referral None record ed. Procedures None record ed. Surgeries None record ed. Imaging None record ed. Medication Orders None record ed. Patient TargetsNo targets recorded. Patient InstructionsNo instructions recorded. Reason for Referral None Reported. Medical Equipment None Reported. Medications Name Sig Start Date Stop Date Status Note LastModified by Organization Details LastModified Time neomycin-esther ymyxin-hydro mihaela 3.5 mg/mL-10,000 unit/mL-1 % ear solution INSTILL 3 DROPS IN EACH EAR FOUR TIMES DAILY FOR 7 DAYS active Not Available Not Available No t Available acetaminophe n 325 mg tablet TAKE 1 TABLET BY MOUTH EVERY 6 HOURS NEEDED FOR PAIN OR FEVER FOR UP TO 10 DAYS active Not Available Not Available No t Available sumatriptan 100 mg tablet TAKE 1 TABLET BY MOUTH AT ONSET OF MIGRAINE SYMPTOMS. DO NOT EXCEED 1 TABLET PER DAY. active Not Available Not Available No t Available prednisone 20 mg tablet TAKE 2 TABLETS BY MOUTH EVERY MORNING FOR 2 DAYS active Not Available Not Available No t Available aspirin 81 mg tablet,delay ed release TAKE 1 TABLET BY MOUTH DAILY active Not Available Not Available Not Available meclizine 25 mg tablet TAKE 1 TABLET BY MOUTH TWICE DAILY NEEDED FOR DIZZINESS active Not Available Not Available No t Available clotrimazole -betamethaso ne 1 %-0.05 % topical cream APPLY TO AFFECTED AREA(S) AND SURROUNDING AREA(S) TWICE DAILY IN THE MORNING AND EVENING NEEDED active Not Available Not Available No t Available nitroglyceri n 0.[address] 1 TABLET UNDER THE TONGUE NEEDED FOR CHEST PAIN - MAY REPEAT IN 5 MINUTES TWICE. IF NO RELIEF CALL 911 OR GO TO EMERGENCY ROOM. active Not Available Not Available No t Available docusate sodium 100 mg capsule TAKE 1 CAPSULE BY MOUTH AT BEDTIME NEEDED FOR CONSTIPATIO N active Not Available Not Available No t Available hydrocortiso ne 2.5 % topical cream APPLY TO THE AFFECTED AREA(S) TWICE DAILY FOR FOURTEEN DAYS active Not Available Not Available No t Available lisinopril 5 mg tablet TAKE 1 TABLET BY MOUTH EVERY DAY active Not Available Not Available No t Available fluticasone propionate 50 mcg/actuatio n nasal spray,suspen maren INSTILL 1 SPRAY IN EACH NOSTRIL ONCE DAILY active Not Available Not Available N ot Available ipratropium bromide 21 mcg (0.03 %) nasal spray USE 2 SPRAYS IN EACH NOSTRIL TWICE DAILY active Not Available Not Available Not Available amoxicillin 875 mg-potassium clavulanate 125 mg tablet TAKE 1 TABLET BY MOUTH TWICE DAILY FOR 7 DAYS active Not Available Not Available No t Available rosuvastatin 40 mg tablet TAKE 1 TABLET BY MOUTH AT BEDTIME active Not Available Not Available No t Available cholecalcife rol (vitamin D3) 50 mcg (2,000 unit) tablet TAKE 1 TABLET BY MOUTH EVERY DAY active Not Available Not Available No t Available Paxlovid 300 mg (150 mg x 2)-100 mg tablets in a dose pack TAKE 2 TABLETS (300 MG) OF NIRMATRELVI R & 1 TABLET (100 MG) OF RITONAVIR BY MOUTH TWICE DAILY FOR 5 DAYS active Not Available Not Available N ot Available Vitals Date Recorded Body weight Body temperature Heart rate Oxygen saturation Oxygen saturation in Arterial blood by Pulse oximetry Body height Respiratory rate Systolic blood pressure Diastolic blood pressure Provider Name and Address Organization Details Last Updated DateTime 4 91575.9 6 g 98.4 [degF] 83 /min 100 % 100 % 152.4 cm 16 /min 110 mm[Hg] 69 mm[Hg] Not Available [employer] 4 16:07:55 Date Recorded Oxygen saturation Oxygen saturation in Arterial blood by Pulse oximetry Heart rate Body weight Respiratory rate Body temperature Body height Systolic blood pressure Diastolic blood pressure Provider Name and Address Organization Details Last Updated DateTime 2 94 % 94 % 64 /min 26870.9 2 g 18 /min 98 [degF] 152.4 cm 105 mm[Hg] 62 mm[Hg] Not Available [employer] 2 10:34:47 Date Recorded Body temperature Heart rate Respiratory rate Oxygen saturation Oxygen saturation in Arterial blood by Pulse oximetry Systolic blood pressure Diastolic blood pressure Provider Name and Address Organization Details Last Updated DateTime 3 98.4 [degF] 90 /min 12 /min 100 % 100 % 154 mm[Hg] 84 mm[Hg] Not Available [employer] 3 10:46:49 Social History None recorded. Functional Status None recorded. Mental Status None recorded. Family History Nothing Reported. Medical History No medical history recorded. Gynecological HistoryNo gynecological history recorded. Obstetrics History GPAL:G 0 P 0 0 0 0 Past Encounters Encounter ID Performer Location Encounter Start Date Encounter Closed Date Diagnosis/Indication Diagnosis SNOMED-CT Code Diagnosis ICD10 Code Diagnosis Note [id number] Mario García MD [facility] [address] [place] [id number] 01/29/2022 10:34:42 01/29/2022 10:47:01 [id number] Adolfo Lopez MD [facility] - [facility] [address] [place] [id number] 06/19/2022 10:46:47 06/23/2022 12:07:42 Dizziness [id number] R42 [id number] Raheel Sethi MD Main - [address] [id number] 02/17/2024 16:07:52 02/17/2024 23:08:37 Shoulder pain 93950511 M25.519 As noted, we were called to see this patient regarding concerns of chronic shoulder pain. Evaluation in the field was performed by my investigator operator colleague, as noted above, I provided real-time direction and supervisio n for this visit. The evaluation revealed no deformitie s and a normal neurovascu lar examinatio n. She is followed by an orthopedis t for this injury and was requesting an injection . Impression :Chronic pain of shoulder Plan:Ketor olac x1 Primary care, [place] to PT Dispositio n: We discussed the diagnostic uncertaint y of home visits and the risk associated with this. In this case, the patient and I felt this to be an acceptable and reasonable amount of risk given the benefit of avoiding an ED visit. We discussed the need to seek care urgently/e mergently in the setting of any new or worsening serious symptoms, particular ly numbness, weakness, new trauma, fevers, chills. Health Concerns Section Related Observation LastModified by Organization Detai ls LastModified Time None Recorded Concern Status LastModified by Organization Details LastModified Time None Recorded Advance Directives Directive None Recorded Payers Encounter Date Sequence Insurance Name Policy Number Policy Castillo Covered Member ID Castillo Member ID Guarantor Name 01/29/2022 1 [facility] [employer] - DOS PRIOR TO 2022 - DUAL ELIGIBLE (MEDICARE REPLACEMENT/ADV ANTAGE - HMO) Afsaneh Doyle [id number] Afsaneh Doyle 06/19/2022 1 [facility] - DOS PRIOR TO 2022 - DUAL ELIGIBLE (MEDICARE REPLACEMENT/ADV ANTAGE - HMO) Afsaneh Doyle [id number] Afsaneh Doyle 02/17/2024 1 [facility] [employer] - DOS ON OR AFTER 2022 - DUAL ELIGIBLE - [facility] AND ONE CARE (MEDICARE REPLACEMENT/ADV ANTAGE - HMO) Afsaneh Doyle [id number] Afsaneh Doyle Notes Date Note Type Note Provider Name and Address Organization Details Recorded Time 01/29/2022 text/html HPI: ALLERGIC TO; Sumatriptan and Tramadol Patient with recent fall. Is finding BP low at times. Poor PO fluid intake. Has history of Vertigo on Meclizine daily. BP today is 120/70 has been ? 70/50 .................. .................. .................. .................. .................. .................. .................. ............... CRC Nursing Assessment: Comments: CRC RN DID NOT NEED FURTHER INFO Call to member at 8:43p with ore crushing dust collector [id number] to give ETA, no answer, VM left. will roll visit over to owusu 01/29. Member called back at 9:05p- aware visit will be tomorrow, but she was unsure if she would be home as I can not give her a definite time, I told her we will call before we come. Mario García MD [address] [facility],[address], [place], [phone], [employer] 01/29/2022 10:46:58 06/19/2022 text/html HPI: Patient reports dizziness since Thursday worsening. Worse laying down and turning to left side. No illness no shortness of breath.Takes meclezine but it is not relieving symptoms. DM BS 110 and BP 115/78 P 83 today. ? Fluid intake poor. .................. .................. .................. .................. .................. .................. .................. ............... CRC Nursing Assessment: Comments: CRC RN did not require any additional information to process this visit. 06/18 12:15p- member called into service, would like visit tomorrow 06/19 as she won't be home today- Martin .................. .................. .................. .................. .................. .................. .................. ............... Special Needs Child Caregiver Note From Marlen Rosales: Dispatched a home of 81-year-old female patient who was diagnosed with vertigo and given meclizine. Patient states that when she lays down her dizziness gets worse, the room does not spin around her. She feels as if she is dizzy inside her head. Patient denies chest pain, shortness of breath, nausea vomiting. She is conscious alert, and oriented times four vitals are taken out within normal limits. Blood sugar [address] Lopez for further instructions. After speaking with Dr. Lopez, we believe this may be an issue with her vestibular Dr. Lopez advices for patient to try Claritin before she sees her PCP next week if her condition worsens she is to seek medical help. .................. .................. .................. .................. .................. .................. .................. ............... Disposition: Fulfilled Adolfo Lopez MD [address] [facility],[address], [place], [phone], JAEL MIRANDA 06/19/2022 11:39:13 02/17/2024 text/html HPI: Pt just seen OV 02/16/24 left shoulder pain. Prescribed diclofenac 1% gel and tylenol 500mg q 6hr. Pt is reporting left shoulder pain unbearable, pt is requesting an injection. Pt has referral to orthopedic surgeon 03/07/24 Limited ROM at this time. .................. .................. .................. .................. .................. .................. .................. ............... CRC Nurse Triage Notes (Mellissa Castro): Chief Complaints: Pain PMH: Hypertension, Heart Disease, Diabetes, Hypertension Other Allergies: tramadol Comments: CRC RN DID NOT NEED FURTHER INFO .................. .................. .................. .................. .................. .................. .................. ............... Special Needs Child Caregiver Note From Miki Patel: [facility] visit for female pt. Pt complaining of left shoulder pain. Pt has been getting worse over last 6 weeks. Pt seen in office with no findings on xray. Pt prescribed tylenol and diclofenac gel and has follow up with orthopedist in 3 weeks. V/S taken as listed. Pt reports some improvement with tylenol but hesitant to be taking it so frequently. Pt denies kidney issues or GI/ulcers/bleeds. Consulted with [facility] Dr. Sethi who prescribed 15 mg of IM toradol given on scene. Pt education provided. .................. .................. .................. .................. .................. .................. .................. ............... Disposition: Fulfilled Raheel Sethi MD [address] [facility],[address], [place], [phone], [employer] 02/17/2024 18:07:21 OBGyn Episode No OBEpisode recorded.
== END 2024-08-24 11:35 | disposition home or self-care (01) ==
LOC: HO.HHCX 11:34
PROVIDERS: Visit Provider Family Medicine
DX: M25.551 Pain in right hip (principal); M25.561 Pain in right knee; R05.9 Cough, unspecified; Z91.81 History of falling
CPT/HCPCS: 71046; 73502; 73564

== ENCOUNTER → 2024-08-24 11:36 | Outpatient (BNV) | payer OTHER, SELFPAY | PROVIDERS: Visit Provider Radiology Diagnostic Radiology | DX: M25.561 Pain in right knee (principal); M25.551 Pain in right hip; J84.9 Interstitial pulmonary disease, unspecified | CPT/HCPCS: 71046; 73502; 73564 ==

== ENCOUNTER 2024-10-13 09:41 | Outpatient (REF) | payer OTHER, SELFPAY ==
--- OUTSIDE RECORDS SUMMARY | 2024-10-13 09:59 | XMS_ITS | Encounter Summary ---
Author Organization [facility] Address [address] [facility] [address] [place] [address] Care Team Providers Care Tire Mold Tester Name Role Phone Lubna Fong MD Primary Care Provider [phone] Aguila Stoner PharmD Unavailable [phone] Reason for Visit * Reason Onset Date Comments Referral 04/14/2023 Encounter Details Date Type Department Care Team ([facility] st Contact Info) Description 04/14/2023 Telephone [facility] [address] [place], [place] [phone] Lubna Fong MD [address] [place], [place] [phone] Referral Social History Tobacco Use Types Packs/Day Years Used Date Smoking Tobacco: Never Passive Smoke Exposure: Never Smokeless Tobacco: Never Alcohol Use Standard Drinks/Week Comments Never 0 (1 standard drink = 0.6 oz pur e alcohol) Depression Answer Date Recorded Patient Health Questionnaire-9 Score 0 06/26/2022 Housing Stability Answer Date Recorded What is your housing situation today? I have leyla ramírez 03/02/[address] you li ve. Do you have problems with any of the following? None of the above 03/02/2023 Food Insecurity Answer Date Recorded Within the past 12 months, y ou worried that your food would run out before you got money to buy more: Never True 03/02/2023 Within the past 12 months,th e food you bought just didn't last and you didn't have enough money to get more: Never True Transportation Answer Date Recorded In the past 12 months, has l ack of transportation kept you from medical appts, meetings, work or from getting things needed for daily living? Yes, it has kept me from medical appointments or getting medications. 02/22/2023 Utilities Answer Date Recorded In the past 12 months, has t he electric, gas, oil or water company threatened to shut off services in your home? No 03/02/2023 Depression Answer Date Recorded Patient Health Questionnaire-2 Score 0 09/24/2022 Comments Unknown Sex and Gender Information Value Date Recorded Sex Assigned at Female 03/17/2022 10:20 AM EDT Legal Sex Female 10:20 AM EDT Gender Identity Female 03/17/2022 10:20 AM EDT Sexual Orientation Straight 03/17/2022 10 :20 AM EDT documented as of this encounter Miscellaneous Notes * Telephone Encounter - Chirag Cochran - 04/14/2023 10:48 AM EST Tc from patient requesting a ultra sound referral for the patients veins in foot at would like to be sent to [facility] Cardiovascular Associate [phone] [address] [place] [address] documented in this encounter Plan of Treatment Not on file documented as of this encounter Goals Goal Patient Goal Type Associated Problems Recent Progress Patient-Stated? Author Blood Pressure < 140/90 Blood Pressure 174/88( 025 12:16 PM EDT) No Aguila Stoner, Dimitri documented as of this encounter Visit Diagnoses Not on filedocumented in this encounter Additional Health Concerns Assessment Noted Time PHQ-9 Depression Total Score: 0 06/26/19 23 10:45 AM EST documented as of this encounter Care Teams Tire Mold Tester Relationship Specialty Start Date End Date Lubna Fong MD [address] [place] [id number] PCP - General Family Medicine 05/18/18 Aguila Stoner, Dimitri [address] [place] [phone] Pharmacist Internal Medicine 09/12/22 documented as of this encounter
[2024-10-13 12:28] LABS: Alanine Aminotransferase 33 U/L (0-31); Albumin Level 4.3 g/dL (3.5-5.0); Alkaline Phosphatase 78 U/L (39-117); Anion Gap 12 (12-20); Aspartate Amino Transferase 23 U/L (5-31); Bilirubin Total 0.4 mg/dL (0.0-1.0); Blood Urea Nitrogen 16 mg/dL (9-16); Calcium 9.8 mg/dL (8.4-10.2); Carbon Dioxide 28 mmol/L (22-29); Chloride 107 mmol/L (96-108); Cholesterol 133 mg/dL (<200); Estimated Glomerular Filt Rate > 60; Glucose Random 122 mg/dL (60-115); HDL Cholesterol 42 mg/dL (>40); LDL Cholesterol Calculated 63 mg/dL (<100); Potassium 4.5 mmol/L (3.3-5.1); Sodium 142 mmol/L (135-145); Total Protein 7.4 g/dL (6.5-8.0); Triglycerides 140 mg/dL (<150)
[2024-10-13 12:40] LABS: HBS Num1 1.87 mIU/mL (0-7.99); ~Hepatitis B Surface Antibody NONREACTIVE (Nonreactive)
[2024-10-13 12:48] LABS: Reflex LDLD? No
[2024-10-13 13:01] LABS: Creatinine Urine 260.78 mg/dL; Microalbum/Creatinine Ratio Ur 14.5 ug/mg cr (<30)
== END 2024-10-13 09:42 | disposition home or self-care (01) ==
LOC: HO.HHCL 09:41
PROVIDERS: Visit Provider Family Medicine
DX: E11.9 Type 2 diabetes mellitus without complications (principal); E78.5 Hyperlipidemia, unspecified; Z01.84 Encounter for antibody response examination
CPT/HCPCS: 36415; 80053; 80061; 82043; 82570; 86706